=== PATIENT | female | born 1965 | race African-American/Black ===

== ENCOUNTER 2020-06-27 09:22 | Emergency (ER) | payer SELFPAY ==
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
[2020-06-27 10:16] VITALS: BP 146/101; TEMP 98.8; O2SAT 100
== END 2020-06-27 10:12 | disposition home or self-care (01) ==
LOC: ER 09:22
DX: M54.17 Radiculopathy, lumbosacral region (principal); V89.2XXA Person injured in unspecified motor-vehicle accident, traffic, initial encounter; I10 Essential (primary) hypertension
CPT/HCPCS: 99282

== ENCOUNTER 2023-10-23 07:43 | Emergency (ER) | payer OTHER ==
--- OUTSIDE RECORDS SUMMARY | 2023-10-23 07:47 | XMS REPORT | Continuity of Care Document ---
:1965 Author Organization Formerly [facility] t Address [address] [facility] [address] [place] [address] Care Team Providers Name Role Phone Valeria Stone Primary Care Physician [phone] LAURA SOLANO Attending Clinician Unavailable Problems This patient has no known problems. Allergies, Adverse Reactions, Alerts Allergy Allergy Status Severity Reaction(s) Onset Inactive Treating Comm ents Source Name Type Date Date Clinician Adele - Jasen Active 2021- Intraven ty to 7-13 ous adverse 00:00: reaction 00 to drug Medications Ordered Filled Start Stop Current Ordering Indication Dosage Frequency Signature Comments Components Source Medication Medication Date Date Medication? Clinician (SIG) Name Name TAKE ONE 2021-0 No (1) 9-16 TABLET(S) 00:00: BY MOUTH 00 ONCE A DAY. TAKE ONE 2021-0 No 40 (1) 8-17 TABLET(S) 00:00: BY MOUTH 00 ONCE A DAY. TAKE ONE 2021-0 No 40 (1) 8-17 TABLET(S) 00:00: BY MOUTH 00 ONCE A DAY. Dose 2021-0 No Unknown 8-08 00:00: 00 Dose 2021-0 No Unknown 8-08 00:00: 00 TAKE 1 2021-0 No 500 TABLET 8-03 TWICE 00:00: DAILY. 00 TAKE 1 2021-0 No 500 TABLET 8-03 TWICE 00:00: DAILY. 00 TAKE 1 2021-0 No 500 TABLET 7-16 TWICE 00:00: DAILY. 00 TAKE 1 2022-0 No 500 TABLET 7-16 TWICE 00:00: DAILY. 00 losartan 2022-0 No 1mg 100 7-15 mg-hydrochl 00:00: orothiazide 00 12.5 mg tablet amlodipine 2022-0 No 1mg 10 mg 7-15 tablet 00:00: 00 losartan 2022-0 No 1mg 100 7-15 mg-hydrochl 00:00: orothiazide 00 12.5 mg tablet amlodipine 2022-0 No 1mg 10 mg 7-15 tablet 00:00: 00 Abilify 5 2022-0 No 15mg mg tablet 05-16 00:00: 00 Cymbalta 30 2022-0 No 1mg mg 6-28 capsule,del 00:00: ayed 00 release Dose 2022-0 No Unknown 05-16 00:00: 00 Abilify 5 2022-0 No 15mg mg tablet 05-16 00:00: 00 Cymbalta 30 2022-0 No 1mg mg 6-28 capsule,del 00:00: ayed 00 release Dose 2022-0 No Unknown 05-16 00:00: 00 Abilify 5 2022-0 No 1mg mg tablet 04-26 00:00: 00 trazodone 2022-0 No 1mg 50 mg 6-08 tablet 00:00: 00 Dose 2022-0 No Unknown 6-08 00:00: 00 Abilify 5 2022-0 No 1mg mg tablet 04-26 00:00: 00 trazodone 2022-0 No 1mg 50 mg 6-08 tablet 00:00: 00 Dose 2022-0 No Unknown 6-08 00:00: 00 famotidine 2022-0 No 1mg 40 mg 6-06 tablet 00:00: 00 naproxen 2022-0 No 1mg 500 mg 6-06 tablet 00:00: 00 Dose 2022-0 No Unknown 6-06 00:00: 00 famotidine 2022-0 No 1mg 40 mg 6-06 tablet 00:00: 00 naproxen 2022-0 No 1mg 500 mg 6-06 tablet 00:00: 00 Dose 2022-0 No Unknown 6-06 00:00: 00 metformin 2022-0 No 1mg ER 500 mg 6-05 tablet,exte 00:00: nded 00 release 24 hr Vitamin D2 2022-0 No 1(50,00 1,250 mcg 6-05 0 unit) (50,000 00:00: unit) 00 capsule metformin 2022-0 No 1mg ER 500 mg 6-05 tablet,exte 00:00: nded 00 release 24 hr Vitamin D2 2022-0 No 1(50,00 1,250 mcg 6-05 0 unit) (50,000 00:00: unit) 00 capsule montelukast 2022-0 No 1mg 10 mg 6-01 tablet 00:00: 00 amlodipine 2022-0 No 1mg 10 mg 6-01 tablet 00:00: 00 Dose 2022-0 No Unknown 6-01 00:00: 00 ipratropium 2022-0 No 1mg 0.5 6-01 base)/3 mg-albutero 00:00: mL l 3 mg (2.5 00 mg base)/3 mL nebulizatio n soln famotidine 2022-0 No 1mg 40 mg 6-01 tablet 00:00: 00 loratadine 2022-0 No 1mg 10 mg 6-01 tablet 00:00: 00 losartan 2022-0 No 1mg 100 mg 6-01 tablet 00:00: 00 amlodipine 2022-0 No 1mg 10 mg 6-01 tablet 00:00: 00 montelukast 2022-0 No 1mg 10 mg 6-01 tablet 00:00: 00 losartan 2022-0 No 1mg 100 mg 6-01 tablet 00:00: 00 amlodipine 2022-0 No 1mg 10 mg 6-01 tablet 00:00: 00 losartan 2022-0 No 1mg 100 mg 6-01 tablet 00:00: 00 naproxen 2022-0 No 1mg 500 mg 6-01 tablet 00:00: 00 ondansetron 2022-0 No 1mg HCl 8 mg 6-01 tablet 00:00: 00 alendronate 2022-0 No 1mg 70 mg 6-01 tablet 00:00: 00 omeprazole 2022-0 No 1mg 40 mg 6-01 capsule,del 00:00: ayed 00 release hydrochloro 2022-0 No 1mg thiazide 6-01 12.5 mg 00:00: capsule 00 omeprazole 2022-0 No 1mg 40 mg 6-01 capsule,del 00:00: ayed 00 release hydrochloro 2022-0 No 1mg thiazide 6-01 12.5 mg 00:00: capsule 00 Linzess 145 2-0 No 1mcg mcg capsule 04-19 00:00: 00 naproxen 2022-0 No 1mg 500 mg 6- tablet 00:00: 00 Dose 2022-0 No Unknown 6- 00:00: 00 Dose 2022-0 No Unknown 6- 00:00: 00 Dose 2022-0 No Unknown 6- 00:00: 00 Dose 2022-0 No Unknown 6- 00:00: 00 Dose 2022-0 No Unknown 6- 00:00: 00 Dose 2022-0 No Unknown 04-19 00:00: 00 Dose 2022-0 No Unknown 04-19 00:00: 00 ondansetron 2-0 No 1mg HCl 8 mg - tablet 00:00: 00 alendronate 2022-0 No 1mg 70 mg 6- tablet 00:00: 00 omeprazole 2-0 No 1mg 40 mg 6- capsule,del 00:00: ayed 00 release hydrochloro 2022-0 No 1mg thiazide 6- 12.5 mg 00:00: capsule 00 omeprazole 2-0 No 1mg 40 mg 6- capsule,del 00:00: ayed 00 release hydrochloro 2022-0 No 1mg thiazide 6-01 12.5 mg 00:00: capsule 00 Linzess 145 2-0 No 1mcg mcg capsule 04-19 00:00: 00 Dose 2022-0 No Unknown 04-19 00:00: 00 Dose 2022-0 No Unknown 04-19 00:00: 00 Dose 2022-0 No Unknown 04-19 00:00: 00 Dose 2022-0 No Unknown 04-19 00:00: 00 Dose 2022-0 No Unknown 04-19 00:00: 00 Dose 2022-0 No Unknown 04-19 00:00: 00 Dose 2022-0 No Unknown 04-19 00:00: 00 albuterol 2-0 No 1mcg/ac sulfate HFA 04-19 tuation 90 00:00: mcg/actuati 00 on aerosol inhaler ipratropium 2-0 No 1mg 0.5 6-01 base)/3 mg-albutero 00:00: mL l 3 mg (2.5 00 mg base)/3 mL nebulizatio n soln famotidine 2021-0 No 1mg 40 mg 6-01 tablet 00:00: 00 loratadine 2021-0 No 1mg 10 mg 6-01 tablet 00:00: 00 losartan 2021-0 No 1mg 100 mg 6-01 tablet 00:00: 00 amlodipine 2021-0 No 1mg 10 mg 6-01 tablet 00:00: 00 Vital Signs Vital Name Observation Time Observation Value Comments Source BP Systolic 2022-07-14 15:21:00 116 mm[Hg] BP Diastolic 2022-07-14 15:21:00 76 mm[Hg] Weight Measured 2022-07-14 15:21:00 269.00 pounds Height Measured 2022-07-14 15:21:00 66.00 inches Body Temperature 2022-07-14 15:21:00 98.50 degrees Heart Rate 2022-07-14 15:21:00 96.00 /min Respiratory Rate 2022-07-14 15:21:00 18.00 /min BP Systolic 2022-06-21 10:55:00 142 mm[Hg] BP Diastolic 2022-06-21 10:55:00 92 mm[Hg] Weight Measured 2022-06-21 10:55:00 266.20 pounds Height Measured 2022-06-21 10:55:00 66.00 inches Body Temperature 2022-06-21 10:55:00 98.30 degrees Heart Rate 2022-06-21 10:55:00 84.00 /min Respiratory Rate 2022-06-21 10:55:00 18.00 /min BP Systolic 2022-06-02 15:11:00 BP Diastolic 2022-06-02 15:11:00 Weight Measured 2022-06-02 15:11:00 Height Measured 2022-06-02 15:11:00 Body Temperature 2022-06-02 15:11:00 Heart Rate 2022-06-02 15:11:00 Respiratory Rate 2022-06-02 15:11:00 BP Systolic 2022-06-02 14:12:00 149 mm[Hg] BP Diastolic 2022-06-02 14:12:00 85 mm[Hg] Weight Measured 2022-06-02 14:12:00 271.60 pounds Height Measured 2022-06-02 14:12:00 66.00 inches Body Temperature 2022-06-02 14:12:00 98.10 degrees Heart Rate 2022-06-02 14:12:00 84.00 /min Respiratory Rate 2022-06-02 14:12:00 18.00 /min BP Systolic 2022-04-19 10:57:00 167 mm[Hg] BP Diastolic 2022-04-19 10:57:00 108 mm[Hg] Weight Measured 2022-04-19 10:57:00 271.40 pounds Height Measured 2022-04-19 10:57:00 66.00 inches Body Temperature 2022-04-19 10:57:00 98.30 degrees Heart Rate 2022-04-19 10:57:00 87.00 /min Respiratory Rate 2022-04-19 10:57:00 17.00 /min Procedures This patient has no known procedures. Plan of Care Planned Activity Planned Date Details Comments Source Goal Plan of Care Note [code = 65941-8] Goal Plan of Care Note [code = 90955-1] Goal Plan of Care Note [code = 21615-0] Goal Plan of Care Note [code = 70899-5] Goal Plan of Care Note [code = 20666-4] Goal Plan of Care Note [code = 32628-1] Goal Plan of Care Note [code = 65912-7] Goal Plan of Care Note [code = 17031-7] Goal Plan of Care Note [code = 66281-5] Goal Plan of Care Note [code = 13663-8] Goal Plan of Care Note [code = 16503-7] Goal Plan of Care Note [code = 64316-7] Goal Plan of Care Note [code = 57042-3] Goal Plan of Care Note [code = 79844-6] Goal Plan of Care Note [code = 19068-0] Goal Plan of Care Note [code = 08116-1] Goal Plan of Care Note [code = 08404-5] Goal Plan of Care Note [code = 34066-7] Goal Plan of Care Note [code = 16211-5] Goal Plan of Care Note [code = 63338-3] Goal Plan of Care Note [code = 85337-9] Goal Plan of Care Note [code = 19483-2] Goal Plan of Care Note [code = 55620-3] Goal Plan of Care Note [code = 52701-8] Encounters Start End Encounter Admission Attending Care Care Encounter Source Date/Time Date/Time Type Type Clinicians Facility Department ID 2023-05-28 2023-05-28 Outpatient [facility] [id number] [place] 08:16:05 08:16:05 [id number] F Curry 2023-05-15 2023-05-15 Outpatient [facility] [id number] [place] 08:20:47 08:20:47 [id number] F Curry 2022-07-21 2022-07-21 Outpatient [id number] 00:00:00 00:00:00 Visit [id number] [id number] 2022-07-14 2022-07-14 Outpatient [id number] 00:00:00 00:00:00 Visit [id number] 2020-08-03 2020-08-03 Outpatient [facility]AYMUNDO SOLANO FRANK [id number] 06:00:00 [facility]00[facility] [facility] 2020-07-20 2020-07-20 Outpatient RAYMUNDO SOLANO FRANK [id number] 08:57:00 23:59:00 [facility] Results Test Description Test Time Test Comments Results Result Comments Source VITAMIN D, 25 OH 2022-07-18 03:10:02 Test Item Value Reference Range Interpretation Comme nts VITAMIN D, 25 OH (test code 23 NG/ML SEE BELOW L NOTE: 25-HYDROXYVITAMIN D ASSAY = 4958) INCLUDES 25-HYD ROXYVITAMIN D2 AND D3. METHODOLOGY IS CHEMILUMINESCENT IMMUNOASSAY. INTERPRETIVE RANGES PED IATRIC (<17 YEARS) . . . . . . . . . . . NG/ML 20-100ADULT: INSUFFICIENT . . . . . . . . . . . . . . NG/ML <20 S UBOPTIMAL . . . . . . . . . . . . . . . NG/ML 20-29 OPTIMAL . . . . . . . . . . . . . . . . . NG/ML 30-100 VITAMIN D, 25 [id number] 00:00:00 Test Item Value Reference Range Interpretation Comments VITAMIN D, 25 OH (test code = 4958) 23 NG/ML VITAMIN D, 25 [id number] 00:00:00 Test Item Value Reference Range Interpretation Comments VITAMIN D, 25 OH (test code = 4958) 23 NG/ML LIPID [id number] 03:15:18 Test Item Value Reference Range Interpretation Comments CHOLESTEROL (test 237 MG/DL <200 H code = 2210) TRIGLYCERIDES (test 178 MG/DL <150 H code = 2232) HDL CHOLESTEROL (test 52 MG/DL >39 code = 2220) CALC LDL CHOL (test 154 MG/DL <100 H NOTE: C ALCULATED LDL code = 2237) IS BASED ON MING-ARMSTRONG METHOD WHICHINCLUDES ADJUSTABLE TRIGLYCERIDE:VL DL CHOLESTEROL RAT IO.THIS FACTOR VARIES B Y MEASURED TRIGLY CERIDE AND NON-HDLCHOL ESTEROL CONCENTRATIONS WITH INCREASED CALCU LATED LDL SEENIN HIGH ER TRIGLYCERIDE OR LOWER NON-HDL SPECIME NS. FOR MOREINFORMATION , SEE CLIENT ANNOUNCE MENT AT [email or web address] RISK RATIO LDL/HDL 2.96 RATIO <3.22 (test code = 2238) COMPREHENSIVE METABOLIC [id number] 03:15:18 Test Item Value Reference Range Interpretation Comments GLUCOSE (test code = 87 MG/DL 70-99 2216) BUN (test code = 20 MG/DL 6-2207) CREATININE (test 1.31 MG/DL 0.60-1.30 H code = 2214) eGFR (2020 CKD-EPI) 48 ML/MIN/1.73 >60 L (test code = 66138) CALC BUN/CREAT (test 15 RATIO - code = 2235) SODIUM (test code = 141 MEQ/L 020-365 3163) POTASSIUM (test code 4.4 MEQ/L 3.5-5.4 = 2227) CHLORIDE (test code 103 MEQ/L 95-107 = 2215) CARBON DIOXIDE (test 22 MEQ/L -31 code = 2206) CALCIUM (test code = 9.6 MG/DL 8.5-10.5 220) PROTEIN, TOTAL (test 8.0 G/DL 6.1-8.3 code = 2229) ALBUMIN (test code = 4.4 G/DL 3.5-5.2 220) CALC GLOBULIN (test 3.6 G/DL 1.9-3.7 code = 2240) CALC A/G RATIO (test 1.2 RATIO 1.0-2.6 code = 2234) BILIRUBIN, TOTAL 0.2 MG/DL See_Comment [Automated message] (test code = 2207) The syste m which generated this result transmit chelsea reference range : <=1.2. The refe rence range was not u sed to interpret th is result as normal/abnormal . ALKALINE PHOSPHATASE 108 U/L 40-133 (test code = 2204) AST (test code = 21 U/L 9-40 2217) ALT (test code = 29 U/L 5-40 2218) TSH, THIRD [id number] 01:13:31 Test Item Value Reference Range Interpretation Comments TSH, THIRD 0.491 UIU/ML 0.400-4.100 UNLESS OTHERWI SE GENERATION (test INDICATED, ALL TESTING code = 9661) PERFORMED [facility], [id number] [place] [address] DHRUV DIRECTOR: MANISH ZUNIGA M.D. CLIA NUMBER [id number] CAP ACCREDITATION N O. [id number] LIPID [id number] 00:00:00 Test Item Value Reference Range Interpretation Comments CHOLESTEROL (test code = 2210) 237 MG/DL TRIGLYCERIDES (test code = 2232) 178 MG/DL HDL CHOLESTEROL (test code = 2220) 52 MG/DL CALC LDL CHOL (test code = 2237) 154 MG/DL RISK RATIO LDL/HDL (test code = 2.96 RATIO 2238) LIPID [id number] 00:00:00 Test Item Value Reference Range Interpretation Comments CHOLESTEROL (test code = 2210) 237 MG/DL TRIGLYCERIDES (test code = 2232) 178 MG/DL HDL CHOLESTEROL (test code = 2220) 52 MG/DL CALC LDL CHOL (test code = 2237) 154 MG/DL RISK RATIO LDL/HDL (test code = 2.96 RATIO 2238) COMPREHENSIVE METABOLIC [id number] 00:00:00 Test Item Value Reference Range Interpretation Comments GLUCOSE (test code = 2217) 87 MG/DL BUN (test code = 2208) 20 MG/DL CREATININE (test code = 2214) 1.31 MG/DL eGFR (2020 CKD-EPI) (test code 48 ML/MIN/1.73 = 34606) CALC BUN/CREAT (test code = 15 RATIO 2235) SODIUM (test code = 2231) 141 MEQ/L POTASSIUM (test code = 2228) 4.4 MEQ/L CHLORIDE (test code = 2215) 103 MEQ/L CARBON DIOXIDE (test code = 22 MEQ/L 2205) CALCIUM (test code = 2209) 9.6 MG/DL PROTEIN, TOTAL (test code = 8.0 G/DL 2228) ALBUMIN (test code = 2201) 4.4 G/DL CALC GLOBULIN (test code = 3.6 G/DL 224) CALC A/G RATIO (test code = 1.2 RATIO 2233) BILIRUBIN, TOTAL (test code = 0.2 MG/DL 2206) ALKALINE PHOSPHATASE (test 108 U/L code = 2204) AST (test code = 2218) 21 U/L ALT (test code = 2219) 29 U/L COMPREHENSIVE METABOLIC [id number] 00:00:00 Test Item Value Reference Range Interpretation Comments GLUCOSE (test code = 2217) 87 MG/DL BUN (test code = 2208) 20 MG/DL CREATININE (test code = 2214) 1.31 MG/DL eGFR (2020 CKD-EPI) (test code 48 ML/MIN/1.73 = 44052) CALC BUN/CREAT (test code = 15 RATIO 2235) SODIUM (test code = 2231) 141 MEQ/L POTASSIUM (test code = 2228) 4.4 MEQ/L CHLORIDE (test code = 2215) 103 MEQ/L CARBON DIOXIDE (test code = 22 MEQ/L 220) CALCIUM (test code = 2209) 9.6 MG/DL PROTEIN, TOTAL (test code = 8.0 G/DL 2228) ALBUMIN (test code = 2201) 4.4 G/DL CALC GLOBULIN (test code = 3.6 G/DL 2240) CALC A/G RATIO (test code = 1.2 RATIO 4) BILIRUBIN, TOTAL (test code = 0.2 MG/DL 2207) ALKALINE PHOSPHATASE (test 108 U/L code = 2204) AST (test code = 2218) 21 U/L ALT (test code = 2219) 29 U/L TSH, THIRD [id number] 00:00:00 Test Item Value Reference Range Interpretation Comments TSH, THIRD GENERATION (test code 0.491 UIU/ML = 2821) TSH, THIRD [id number] 00:00:00 Test Item Value Reference Range Interpretation Comments TSH, THIRD GENERATION (test code 0.491 UIU/ML = 2821) TSH, THIRD [id number] 00:00:00 Test Item Value Reference Range Interpretation Comments TSH, THIRD GENERATION (test code 0.491 UIU/ML = 2821) HEMOGLOBIN [id number] 04:27:25 Test Item Value Reference Range Interpretation Comments HEMOGLOBIN A1c (test 6.5 % 4.2-5.6 H AMERI CAN DIABETES code = 79284) ASSOCIATION IDELINES FOR HGB A1C: PREDIABETES/INC REASED RISK . . . . . . . 5.7 -6.4% DIAGNOSIS OF DI ABETES . . . . . . . . . >=6 .5% WITH CONFIRMATION OR APPROPRIATE SYMPTOMS NOTE: ASSAY MAY BE AFFECTED BY HEMOGLOBINOPATH IES (SICKLE CELL ANEMIA, S- C DISEASE, OTHERS) OR EDY FICIALLY LOWERED BY DECR EASED RED CELL SURVIVAL ( HEMOLYTIC ANEMIAS, BLOOD LOSS, ETC.). CONSIDER ALTERN ATE TESTING OR LABORATORY C ONSULTATION. CBC W/AUTO DIFF WITH [id number] 03:58:08 Test Item Value Reference Range Interpretation Comments WBC (test code = 6.5 K/UL 3.5-11.0 1001) RBC (test code = 4.83 M/UL 3.80-5.40 1002) HEMOGLOBIN (test code 13.1 G/DL 11.5-15.5 = 1003) HEMATOCRIT (test code 39.2 % 34.0-45.0 = 1004) MCV (test code = 81.2 fL 80.0-99.0 1005) MCH (test code = 27.1 PG 25.0-33.0 1006) MCHC (test code = 33.4 G/DL 31.0-36.0 1007) RDW (test code = 14.9 % 11.5-15.0 1038) NEUTROPHILS (test 49.7 % code = 1008) LYMPHOCYTES (test 40.4 % code = 1010) MONOCYTES (test code 7.4 % = 1011) EOSINOPHILS (test 1.9 % code = 1012) BASOPHILS (test code 0.3 % = 1013) IMMATURE GRANULOCYTES 0.3 % (test code = 1036) NUCLEATED RBCS (test 0.0 /100 WBC'S See_Comment [Aut omated code = 1065) message] The sy stem which generated this result transmitted reference range : 0.0. The refere nce range was not u sed to interpret th is result as normal/abnormal . PLATELET COUNT (test 258 K/UL 130-400 code = 1015) ABSOLUTE NEUTROPHILS 3.22 K/UL 1.50-7.50 (test code = 1066) ABSOLUTE LYMPHOCYTES 2.62 K/UL 1.00-4.00 (test code = 1067) ABSOLUTE MONOCYTES 0.48 K/UL 0.20-1.00 (test code = 1068) ABSOLUTE EOSINOPHILS 0.12 K/UL 0.00-0.50 (test code = 1040) ABSOLUTE BASOPHILS 0.02 K/UL 0.00-0.20 (test code = 1069) ABS IMMATURE 0.02 K/UL 0.00-0.10 GRANULOCYTES (test code = 1020) ABS NUCLEATED RBCS 0.02 K/UL 0.00-0.11 (test code = 98822) HEMOGLOBIN [id number] 00:00:00 Test Item Value Reference Range Interpretation Comments HEMOGLOBIN A1c (test code = 99615) 6.5 % HEMOGLOBIN [id number] 00:00:00 Test Item Value Reference Range Interpretation Comments HEMOGLOBIN A1c (test code = 56995) 6.5 % HEMOGLOBIN [id number] 00:00:00 Test Item Value Reference Range Interpretation Comments HEMOGLOBIN A1c (test code = 70808) 6.5 % CBC W/AUTO [id number] 00:00:00 Test Item Value Reference Range Interpretation Comments WBC (test code = 1001) 6.5 K/UL RBC (test code = 1002) 4.83 M/UL HEMOGLOBIN (test code = 1003) 13.1 G/DL HEMATOCRIT (test code = 1004) 39.2 % MCV (test code = 1005) 81.2 fL MCH (test code = 1006) 27.1 PG MCHC (test code = 1007) 33.4 G/DL RDW (test code = 1038) 14.9 % NEUTROPHILS (test code = 1008) 49.7 % LYMPHOCYTES (test code = 1010) 40.4 % MONOCYTES (test code = 1011) 7.4 % EOSINOPHILS (test code = 1012) 1.9 % BASOPHILS (test code = 1013) 0.3 % IMMATURE GRANULOCYTES (test 0.3 % code = 1036) NUCLEATED RBCS (test code = 0.0 /100WBC'S 1065) PLATELET COUNT (test code = 258 K/UL 1015) ABSOLUTE NEUTROPHILS (test code 3.22 K/UL = 1066) ABSOLUTE LYMPHOCYTES (test code 2.62 K/UL = 1067) ABSOLUTE MONOCYTES (test code = 0.48 K/UL 1068) ABSOLUTE EOSINOPHILS (test code 0.12 K/UL = 1040) ABSOLUTE BASOPHILS (test code = 0.02 K/UL 1069) ABS IMMATURE GRANULOCYTES (test 0.02 K/UL code = 1020) ABS NUCLEATED RBCS (test code = 0.02 K/UL 46024) CBC W/AUTO [id number] 00:00:00 Test Item Value Reference Range Interpretation Comments WBC (test code = 1001) 6.5 K/UL RBC (test code = 1002) 4.83 M/UL HEMOGLOBIN (test code = 1003) 13.1 G/DL HEMATOCRIT (test code = 1004) 39.2 % MCV (test code = 1005) 81.2 fL MCH (test code = 1006) 27.1 PG MCHC (test code = 1007) 33.4 G/DL RDW (test code = 1038) 14.9 % NEUTROPHILS (test code = 1008) 49.7 % LYMPHOCYTES (test code = 1010) 40.4 % MONOCYTES (test code = 1011) 7.4 % EOSINOPHILS (test code = 1012) 1.9 % BASOPHILS (test code = 1013) 0.3 % IMMATURE GRANULOCYTES (test 0.3 % code = 1036) NUCLEATED RBCS (test code = 0.0 /100WBC'S 1065) PLATELET COUNT (test code = 258 K/UL 1015) ABSOLUTE NEUTROPHILS (test code 3.22 K/UL = 1066) ABSOLUTE LYMPHOCYTES (test code 2.62 K/UL = 1067) ABSOLUTE MONOCYTES (test code = 0.48 K/UL 1068) ABSOLUTE EOSINOPHILS (test code 0.12 K/UL = 1040) ABSOLUTE BASOPHILS (test code = 0.02 K/UL 1069) ABS IMMATURE GRANULOCYTES (test 0.02 K/UL code = 1020) ABS NUCLEATED RBCS (test code = 0.02 K/UL 97224) CBC W/AUTO [id number] 00:00:00 Test Item Value Reference Range Interpretation Comments WBC (test code = 1001) 6.5 K/UL RBC (test code = 1002) 4.83 M/UL HEMOGLOBIN (test code = 1003) 13.1 G/DL HEMATOCRIT (test code = 1004) 39.2 % MCV (test code = 1005) 81.2 fL MCH (test code = 1006) 27.1 PG MCHC (test code = 1007) 33.4 G/DL RDW (test code = 1038) 14.9 % NEUTROPHILS (test code = 1008) 49.7 % LYMPHOCYTES (test code = 1010) 40.4 % MONOCYTES (test code = 1011) 7.4 % EOSINOPHILS (test code = 1012) 1.9 % BASOPHILS (test code = 1013) 0.3 % IMMATURE GRANULOCYTES (test 0.3 % code = 1036) NUCLEATED RBCS (test code = 0.0 /100WBC'S 1065) PLATELET COUNT (test code = 258 K/UL 1015) ABSOLUTE NEUTROPHILS (test code 3.22 K/UL = 1066) ABSOLUTE LYMPHOCYTES (test code 2.62 K/UL = 1067) ABSOLUTE MONOCYTES (test code = 0.48 K/UL 1068) ABSOLUTE EOSINOPHILS (test code 0.12 K/UL = 1040) ABSOLUTE BASOPHILS (test code = 0.02 K/UL 1069) ABS IMMATURE GRANULOCYTES (test 0.02 K/UL code = 1020) ABS NUCLEATED RBCS (test code = 0.02 K/UL 79277) H. PYLORI (BREATH)2022-06-22 13:31:28 Test Item Value Reference Range Interpretation Comments H. PYLORI (BREATH) NEGATIVE NEGATIVE UNLESS O THERWISE (test code = 44299) INDICATE D, ALL TESTING PERFORMED [facility] [address] [place] [address] ROWAN AMAYA DIRECTOR: Maria Teresa MORALESIA NUMBER [id number] CAP ACCREDITATION N O. [id number] H. PYLORI (BREATH) [ADDED]2022-06-22 00:00:00 Test Item Value Reference Range Interpretation Comments H. PYLORI (BREATH) (test code = NEGATIVE 48918) H. PYLORI (BREATH) [ADDED]2022-06-22 00:00:00 Test Item Value Reference Range Interpretation Comments H. PYLORI (BREATH) (test code = NEGATIVE 81211) H. PYLORI (BREATH) [ADDED]2022-06-22 00:00:00 Test Item Value Reference Range Interpretation Comments H. PYLORI (BREATH) (test code = NEGATIVE 88496) H. PYLORI (BREATH) [ADDED]2022-06-22 00:00:00 Test Item Value Reference Range Interpretation Comments H. PYLORI (BREATH) (test code = NEGATIVE 51139) COMPREHENSIVE METABOLIC [id number] 05:16:24 Test Item Value Reference Range Interpretation Comments GLUCOSE (test code = 90 MG/DL 70-99 2216) BUN (test code = 15 MG/DL 6-20 2207) CREATININE (test 1.13 MG/DL 0.60-1.30 code = 2214) eGFR (2020 CKD-EPI) 57 >60 L (test code = 36227) ML/MIN/1.73 CALC BUN/CREAT (test 13 RATIO 6-28 code = 2235) SODIUM (test code = 143 MEQ/L 464-247 8174) POTASSIUM (test code 4.4 MEQ/L 3.5-5.4 = 2227) CHLORIDE (test code 106 MEQ/L 95-107 = 2215) CARBON DIOXIDE (test 26 MEQ/L 19-31 code = 2206) CALCIUM (test code = 10.3 MG/DL 8.5-10.5 2208) PROTEIN, TOTAL (test 7.8 G/DL 6.1-8.3 code = 2229) ALBUMIN (test code = 4.6 G/DL 3.5-5.2 2200) CALC GLOBULIN (test 3.2 G/DL 1.9-3.7 code = 2240) CALC A/G RATIO (test 1.4 RATIO 1.0-2.6 code = 2234) BILIRUBIN, TOTAL <0.2 MG/DL See_Comment [Automated message] (test code = 220) The syste m which generated this result transmitted ref erence range: <=1.2. T he reference range was not used to int erpret this result as normal/abnormal . ALKALINE PHOSPHATASE 105 U/L 40-133 (test code = 2204) AST (test code = 21 U/L 9-40 2217) ALT (test code = 31 U/L 5-40 UNLESS OTH ERWISE 221) INDICATED, ALL TESTING PERFORM [facility], [facility]. [address] [place], [place] [id number] [place] [address] DIRECTOR: MANISH ZUNIGA M.D. CLIA NUMBER [id number] CAP ACCREDITATION N O. [id number] COMPREHENSIVE METABOLIC [id number] 00:00:00 Test Item Value Reference Range Interpretation Comments GLUCOSE (test code = 7) 90 MG/DL BUN (test code = 2208) 15 MG/DL CREATININE (test code = 2214) 1.13 MG/DL eGFR (2020 CKD-EPI) (test code 57 ML/MIN/1.73 = 83448) CALC BUN/CREAT (test code = 13 RATIO 5) SODIUM (test code = 2231) 143 MEQ/L POTASSIUM (test code = 2228) 4.4 MEQ/L CHLORIDE (test code = 2215) 106 MEQ/L CARBON DIOXIDE (test code = 26 MEQ/L 2205) CALCIUM (test code = 2209) 10.3 MG/DL PROTEIN, TOTAL (test code = 7.8 G/DL 2228) ALBUMIN (test code = 2201) 4.6 G/DL CALC GLOBULIN (test code = 3.2 G/DL 2239) CALC A/G RATIO (test code = 1.4 RATIO 223) BILIRUBIN, TOTAL (test code = <0.2 MG/DL 2206) ALKALINE PHOSPHATASE (test 105 U/L code = 2204) AST (test code = 2218) 21 U/L ALT (test code = 2219) 31 U/L COMPREHENSIVE METABOLIC [id number] 00:00:00 Test Item Value Reference Range Interpretation Comments GLUCOSE (test code = 2217) 90 MG/DL BUN (test code = 2208) 15 MG/DL CREATININE (test code = 2214) 1.13 MG/DL eGFR (2020 CKD-EPI) (test code 57 ML/MIN/1.73 = 18720) CALC BUN/CREAT (test code = 13 RATIO 2235) SODIUM (test code = 2231) 143 MEQ/L POTASSIUM (test code = 2228) 4.4 MEQ/L CHLORIDE (test code = 2215) 106 MEQ/L CARBON DIOXIDE (test code = 26 MEQ/L 2205) CALCIUM (test code = 2209) 10.3 MG/DL PROTEIN, TOTAL (test code = 7.8 G/DL 2228) ALBUMIN (test code = 220) 4.6 G/DL CALC GLOBULIN (test code = 3.2 G/DL 2240) CALC A/G RATIO (test code = 1.4 RATIO 2234) BILIRUBIN, TOTAL (test code = <0.2 MG/DL 2206) ALKALINE PHOSPHATASE (test 105 U/L code = 2204) AST (test code = 2218) 21 U/L ALT (test code = 2219) 31 U/L COMPREHENSIVE METABOLIC [id number] 00:00:00 Test Item Value Reference Range Interpretation Comments GLUCOSE (test code = 2217) 90 MG/DL BUN (test code = 2208) 15 MG/DL CREATININE (test code = 2214) 1.13 MG/DL eGFR (2020 CKD-EPI) (test code 57 ML/MIN/1.73 = 27129) CALC BUN/CREAT (test code = 13 RATIO 2235) SODIUM (test code = 2231) 143 MEQ/L POTASSIUM (test code = 2228) 4.4 MEQ/L CHLORIDE (test code = 2215) 106 MEQ/L CARBON DIOXIDE (test code = 26 MEQ/L 2205) CALCIUM (test code = 2209) 10.3 MG/DL PROTEIN, TOTAL (test code = 7.8 G/DL 2228) ALBUMIN (test code = 2201) 4.6 G/DL CALC GLOBULIN (test code = 3.2 G/DL 2240) CALC A/G RATIO (test code = 1.4 RATIO 2234) BILIRUBIN, TOTAL (test code = <0.2 MG/DL 2206) ALKALINE PHOSPHATASE (test 105 U/L code = 2204) AST (test code = 2218) 21 U/L ALT (test code = 2219) 31 U/L COMPREHENSIVE METABOLIC [id number] 00:00:00 Test Item Value Reference Range Interpretation Comments GLUCOSE (test code = 2217) 90 MG/DL BUN (test code = 2208) 15 MG/DL CREATININE (test code = 2214) 1.13 MG/DL eGFR (2020 CKD-EPI) (test code 57 ML/MIN/1.73 = 95174) CALC BUN/CREAT (test code = 13 RATIO 2235) SODIUM (test code = 2231) 143 MEQ/L POTASSIUM (test code = 2228) 4.4 MEQ/L CHLORIDE (test code = 2215) 106 MEQ/L CARBON DIOXIDE (test code = 26 MEQ/L 2205) CALCIUM (test code = 2209) 10.3 MG/DL PROTEIN, TOTAL (test code = 7.8 G/DL 2228) ALBUMIN (test code = 220) 4.6 G/DL CALC GLOBULIN (test code = 3.2 G/DL 2239) CALC A/G RATIO (test code = 1.4 RATIO 2233) BILIRUBIN, TOTAL (test code = <0.2 MG/DL 2206) ALKALINE PHOSPHATASE (test 105 U/L code = 2204) AST (test code = 2218) 21 U/L ALT (test code = 2219) 31 U/L TSH, THIRD [id number] 06:26:56 Test Item Value Reference Range Interpretation Comments TSH, THIRD 0.894 UIU/ML 0.400-4.100 UNLESS OTHERWI SE GENERATION (test INDICATED, ALL TESTING code = 2821) PERFORMED [facility], [facility]. [address] [place] [id number] [place] [address] DIRECTOR: MANISH ZUNIGA M.D. CLIA NUMBER [id number] CAP ACCREDITATION N O. [id number] VITAMIN D, 25 [id number] 05:55:42 Test Item Value Reference Range Interpretation Comments VITAMIN D, 25 OH 15 NG/ML SEE BELOW L NOTE: 25-H YDROXYVITAMIN D (test code = 4958) ASSAY INC LUDES 25-HYDROXYVITAM IN D2 AND D3. METHODOLOGY IS CHEMILUMINESCEN T IMMUNOASSAY. * INTERPRETIVE RA NGES PEDIATRIC (<17 YEARS) . . . . . . . . . . . NG/ML 20-100ADULT: IN SUFFICIENT . . . . . . . . . . . . . . NG/ML <20 SUBOP TIMAL . . . . . . . . . . . . . . . NG/ML 20-29 OPT IMAL . . . . . . . . . . . . . . . . . NG/ML 30-100 HEMOGLOBIN [id number] 04:11:26 Test Item Value Reference Range Interpretation Comments HEMOGLOBIN A1c (test 6.8 % 4.2-5.6 H AMERIC AN DIABETES code = 21455) ASSOCIATION IDELINES FOR HGB A1C: PREDIABETES/INC REASED RISK . . . . . . . 5.7 -6.4% DIAGNOSIS OF DI ABETES . . . . . . . . . >=6 .5% WITH CONFIRMATION OR APPROPRIATE SYMPTOMS NOTE: ASSAY MAY BE AFFECTED BY HEMOGLOBINOPATH IES (SICKLE CELL ANEMIA, S- C DISEASE, OTHERS) OR EDY FICIALLY LOWERED BY DECR EASED RED CELL SURVIVAL ( HEMOLYTIC ANEMIAS, BLOOD LOSS, ETC.). CONSIDER ALTERN ATE TESTING OR LABORATORY C ONSULTATION. COMPREHENSIVE METABOLIC [id number] 03:24:51 Test Item Value Reference Range Interpretation Comments GLUCOSE (test code = 110 MG/DL 70-99 H 2216) BUN (test code = 11 MG/DL 6-20 2207) CREATININE (test 1.01 MG/DL 0.60-1.30 code = 2214) eGFR (2020 CKD-EPI) 66 ML/MIN/1.73 >60 (test code = 50805) CALC BUN/CREAT (test 11 RATIO 6-28 code = 2235) SODIUM (test code = 144 MEQ/L 666-307 2703) POTASSIUM (test code 4.2 MEQ/L 3.5-5.4 = 2227) CHLORIDE (test code 108 MEQ/L 95-107 H = 2214) CARBON DIOXIDE (test 24 MEQ/L 19-31 code = 2206) CALCIUM (test code = 9.6 MG/DL 8.5-10.5 2208) PROTEIN, TOTAL (test 7.6 G/DL 6.1-8.3 code = 2229) ALBUMIN (test code = 4.3 G/DL 3.5-5.2 2200) CALC GLOBULIN (test 3.3 G/DL 1.9-3.7 code = 2240) CALC A/G RATIO (test 1.3 RATIO 1.0-2.6 code = 2234) BILIRUBIN, TOTAL 0.3 MG/DL See_Comment [Automated message] (test code = 2207) The syste m which generated this result transmit [place] reference range : <=1.2. The refe rence range was not u sed to interpret th is result as normal/abnormal . ALKALINE PHOSPHATASE 100 U/L 40-133 (test code = 2204) AST (test code = 17 U/L 9-40 2217) ALT (test code = 22 U/L 5-40 2218) LIPID [id number] 03:24:51 Test Item Value Reference Range Interpretation Comments CHOLESTEROL (test 197 MG/DL <200 code = 2210) TRIGLYCERIDES (test 128 MG/DL <150 code = 2232) HDL CHOLESTEROL (test 43 MG/DL >39 code = 2220) CALC LDL CHOL (test 130 MG/DL <100 H NOTE: C ALCULATED LDL code = 2237) IS BASED ON MING-ARMSTRONG METHOD WHICHINCLUDES ADJUSTABLE TRIGLYCERIDE:VL DL CHOLESTEROL RAT IO.THIS FACTOR VARIES B Y MEASURED TRIGLY CERIDE AND NON-HDLCHOL ESTEROL CONCENTRATIONS WITH INCREASED CALCU LATED LDL SEENIN HIGH ER TRIGLYCERIDE OR LOWER NON-HDL SPECIME NS. FOR MOREINFORMATION , SEE CLIENT ANNOUNCE MENT AT [email or web address] RISK RATIO LDL/HDL 3.02 RATIO <3.22 (test code = 2238) CBC W/AUTO DIFF WITH [id number] 02:34:04 Test Item Value Reference Range Interpretation Comments WBC (test code = 5.2 K/UL 3.5-11.0 1001) RBC (test code = 4.38 M/UL 3.80-5.40 1002) HEMOGLOBIN (test code 12.2 G/DL 11.5-15.5 = 1003) HEMATOCRIT (test code 35.8 % 34.0-45.0 = 1004) MCV (test code = 81.7 fL 80.0-99.0 1005) MCH (test code = 27.9 PG 25.0-33.0 1006) MCHC (test code = 34.1 G/DL 31.0-36.0 1007) RDW (test code = 14.1 % 11.5-15.0 1038) NEUTROPHILS (test 46.9 % code = 1008) LYMPHOCYTES (test 41.5 % code = 1010) MONOCYTES (test code 8.3 % = 1011) EOSINOPHILS (test 2.5 % code = 1012) BASOPHILS (test code 0.6 % = 1013) IMMATURE GRANULOCYTES 0.2 % (test code = 1036) NUCLEATED RBCS (test 0.0 /100 WBC'S See_Comment [Aut omated code = 1065) message] The sy stem which generated this result transmitted reference range : 0.0. The refere nce range was not u sed to interpret th is result as normal/abnormal . PLATELET COUNT (test 239 K/UL 130-400 code = 1015) ABSOLUTE NEUTROPHILS 2.45 K/UL 1.50-7.50 (test code = 1066) ABSOLUTE LYMPHOCYTES 2.16 K/UL 1.00-4.00 (test code = 1067) ABSOLUTE MONOCYTES 0.43 K/UL 0.20-1.00 (test code = 1068) ABSOLUTE EOSINOPHILS 0.13 K/UL 0.00-0.50 (test code = 1040) ABSOLUTE BASOPHILS 0.03 K/UL 0.00-0.20 (test code = 1069) ABS IMMATURE 0.01 K/UL 0.00-0.10 GRANULOCYTES (test code = 1020) ABS NUCLEATED RBCS 0.00 K/UL 0.00-0.11 (test code = 60274) CBC W/AUTO [id number] 00:00:00 Test Item Value Reference Range Interpretation Comments WBC (test code = 1001) 5.2 K/UL RBC (test code = 1002) 4.38 M/UL HEMOGLOBIN (test code = 1003) 12.2 G/DL HEMATOCRIT (test code = 1004) 35.8 % MCV (test code = 1005) 81.7 fL MCH (test code = 1006) 27.9 PG MCHC (test code = 1007) 34.1 G/DL RDW (test code = 1038) 14.1 % NEUTROPHILS (test code = 1008) 46.9 % LYMPHOCYTES (test code = 1010) 41.5 % MONOCYTES (test code = 1011) 8.3 % EOSINOPHILS (test code = 1012) 2.5 % BASOPHILS (test code = 1013) 0.6 % IMMATURE GRANULOCYTES (test 0.2 % code = 1036) NUCLEATED RBCS (test code = 0.0 /100WBC'S 1065) PLATELET COUNT (test code = 239 K/UL 1015) ABSOLUTE NEUTROPHILS (test code 2.45 K/UL = 1066) ABSOLUTE LYMPHOCYTES (test code 2.16 K/UL = 1067) ABSOLUTE MONOCYTES (test code = 0.43 K/UL 1068) ABSOLUTE EOSINOPHILS (test code 0.13 K/UL = 1040) ABSOLUTE BASOPHILS (test code = 0.03 K/UL 1069) ABS IMMATURE GRANULOCYTES (test 0.01 K/UL code = 1020) ABS NUCLEATED RBCS (test code = 0.00 K/UL 15486) CBC W/AUTO [id number] 00:00:00 Test Item Value Reference Range Interpretation Comments WBC (test code = 1001) 5.2 K/UL RBC (test code = 1002) 4.38 M/UL HEMOGLOBIN (test code = 1003) 12.2 G/DL HEMATOCRIT (test code = 1004) 35.8 % MCV (test code = 1005) 81.7 fL MCH (test code = 1006) 27.9 PG MCHC (test code = 1007) 34.1 G/DL RDW (test code = 1038) 14.1 % NEUTROPHILS (test code = 1008) 46.9 % LYMPHOCYTES (test code = 1010) 41.5 % MONOCYTES (test code = 1011) 8.3 % EOSINOPHILS (test code = 1012) 2.5 % BASOPHILS (test code = 1013) 0.6 % IMMATURE GRANULOCYTES (test 0.2 % code = 1036) NUCLEATED RBCS (test code = 0.0 /100WBC'S 1065) PLATELET COUNT (test code = 239 K/UL 1015) ABSOLUTE NEUTROPHILS (test code 2.45 K/UL = 1066) ABSOLUTE LYMPHOCYTES (test code 2.16 K/UL = 1067) ABSOLUTE MONOCYTES (test code = 0.43 K/UL 1068) ABSOLUTE EOSINOPHILS (test code 0.13 K/UL = 1040) ABSOLUTE BASOPHILS (test code = 0.03 K/UL 1069) ABS IMMATURE GRANULOCYTES (test 0.01 K/UL code = 1020) ABS NUCLEATED RBCS (test code = 0.00 K/UL 01789) CBC W/AUTO [id number] 00:00:00 Test Item Value Reference Range Interpretation Comments WBC (test code = 1001) 5.2 K/UL RBC (test code = 1002) 4.38 M/UL HEMOGLOBIN (test code = 1003) 12.2 G/DL HEMATOCRIT (test code = 1004) 35.8 % MCV (test code = 1005) 81.7 fL MCH (test code = 1006) 27.9 PG MCHC (test code = 1007) 34.1 G/DL RDW (test code = 1038) 14.1 % NEUTROPHILS (test code = 1008) 46.9 % LYMPHOCYTES (test code = 1010) 41.5 % MONOCYTES (test code = 1011) 8.3 % EOSINOPHILS (test code = 1012) 2.5 % BASOPHILS (test code = 1013) 0.6 % IMMATURE GRANULOCYTES (test 0.2 % code = 1036) NUCLEATED RBCS (test code = 0.0 /100WBC'S 1065) PLATELET COUNT (test code = 239 K/UL 1015) ABSOLUTE NEUTROPHILS (test code 2.45 K/UL = 1066) ABSOLUTE LYMPHOCYTES (test code 2.16 K/UL = 1067) ABSOLUTE MONOCYTES (test code = 0.43 K/UL 1068) ABSOLUTE EOSINOPHILS (test code 0.13 K/UL = 1040) ABSOLUTE BASOPHILS (test code = 0.03 K/UL 1069) ABS IMMATURE GRANULOCYTES (test 0.01 K/UL code = 1020) ABS NUCLEATED RBCS (test code = 0.00 K/UL 89797) LIPID [id number] 00:00:00 Test Item Value Reference Range Interpretation Comments CHOLESTEROL (test code = 2210) 197 MG/DL TRIGLYCERIDES (test code = 2232) 128 MG/DL HDL CHOLESTEROL (test code = 2220) 43 MG/DL CALC LDL CHOL (test code = 2237) 130 MG/DL RISK RATIO LDL/HDL (test code = 3.02 RATIO 2238) LIPID [id number] 00:00:00 Test Item Value Reference Range Interpretation Comments CHOLESTEROL (test code = 2210) 197 MG/DL TRIGLYCERIDES (test code = 2232) 128 MG/DL HDL CHOLESTEROL (test code = 2220) 43 MG/DL CALC LDL CHOL (test code = 2237) 130 MG/DL RISK RATIO LDL/HDL (test code = 3.02 RATIO 2238) HEMOGLOBIN [id number] 00:00:00 Test Item Value Reference Range Interpretation Comments HEMOGLOBIN A1c (test code = 48449) 6.8 % HEMOGLOBIN [id number] 00:00:00 Test Item Value Reference Range Interpretation Comments HEMOGLOBIN A1c (test code = 35396) 6.8 % HEMOGLOBIN [id number] 00:00:00 Test Item Value Reference Range Interpretation Comments HEMOGLOBIN A1c (test code = 09719) 6.8 % VITAMIN D, 25 [id number] 00:00:00 Test Item Value Reference Range Interpretation Comments VITAMIN D, 25 OH (test code = 4958) 15 NG/ML VITAMIN D, 25 [id number] 00:00:00 Test Item Value Reference Range Interpretation Comments VITAMIN D, 25 OH (test code = 4958) 15 NG/ML [id number] 00:00:00 Test Item Value Reference Range Interpretation Comments TSH, THIRD GENERATION (test code 0.894 UIU/ML = 2821) [id number] 00:00:00 Test Item Value Reference Range Interpretation Comments TSH, THIRD GENERATION (test code 0.894 UIU/ML = 2821) [id number] 00:00:00 Test Item Value Reference Range Interpretation Comments TSH, THIRD GENERATION (test code 0.894 UIU/ML = 2821) COMPREHENSIVE METABOLIC [id number] 00:00:00 Test Item Value Reference Range Interpretation Comments GLUCOSE (test code = 2217) 110 MG/DL BUN (test code = 2208) 11 MG/DL CREATININE (test code = 2214) 1.01 MG/DL eGFR (2020 CKD-EPI) (test code 66 ML/MIN/1.73 = 91973) CALC BUN/CREAT (test code = 11 RATIO 2235) SODIUM (test code = 2231) 144 MEQ/L POTASSIUM (test code = 2228) 4.2 MEQ/L CHLORIDE (test code = 2215) 108 MEQ/L CARBON DIOXIDE (test code = 24 MEQ/L 2205) CALCIUM (test code = 220) 9.6 MG/DL PROTEIN, TOTAL (test code = 7.6 G/DL 2228) ALBUMIN (test code = 2201) 4.3 G/DL CALC GLOBULIN (test code = 3.3 G/DL 2240) CALC A/G RATIO (test code = 1.3 RATIO 2234) BILIRUBIN, TOTAL (test code = 0.3 MG/DL 2206) ALKALINE PHOSPHATASE (test 100 U/L code = 2204) AST (test code = 2218) 17 U/L ALT (test code = 2219) 22 U/L COMPREHENSIVE METABOLIC [id number] 00:00:00 Test Item Value Reference Range Interpretation Comments GLUCOSE (test code = 2217) 110 MG/DL BUN (test code = 2208) 11 MG/DL CREATININE (test code = 2214) 1.01 MG/DL eGFR (2020 CKD-EPI) (test code 66 ML/MIN/1.73 = 47412) CALC BUN/CREAT (test code = 11 RATIO 2235) SODIUM (test code = 2231) 144 MEQ/L POTASSIUM (test code = 2228) 4.2 MEQ/L CHLORIDE (test code = 2215) 108 MEQ/L CARBON DIOXIDE (test code = 24 MEQ/L 2205) CALCIUM (test code = 2209) 9.6 MG/DL PROTEIN, TOTAL (test code = 7.6 G/DL 2228) ALBUMIN (test code = 2201) 4.3 G/DL CALC GLOBULIN (test code = 3.3 G/DL 2240) CALC A/G RATIO (test code = 1.3 RATIO 2234) BILIRUBIN, TOTAL (test code = 0.3 MG/DL 2206) ALKALINE PHOSPHATASE (test 100 U/L code = 2204) AST (test code = 2218) 17 U/L ALT (test code = 2219) 22 U/L CBC W/AUTO [id number] 00:00:00 Test Item Value Reference Range Interpretation Comments WBC (test code = 1001) 5.2 K/UL RBC (test code = 1002) 4.38 M/UL HEMOGLOBIN (test code = 1003) 12.2 G/DL HEMATOCRIT (test code = 1004) 35.8 % MCV (test code = 1005) 81.7 fL MCH (test code = 1006) 27.9 PG MCHC (test code = 1007) 34.1 G/DL RDW (test code = 1038) 14.1 % NEUTROPHILS (test code = 1008) 46.9 % LYMPHOCYTES (test code = 1010) 41.5 % MONOCYTES (test code = 1011) 8.3 % EOSINOPHILS (test code = 1012) 2.5 % BASOPHILS (test code = 1013) 0.6 % IMMATURE GRANULOCYTES (test 0.2 % code = 1036) NUCLEATED RBCS (test code = 0.0 /100WBC'S 1065) PLATELET COUNT (test code = 239 K/UL 1015) ABSOLUTE NEUTROPHILS (test code 2.45 K/UL = 1066) ABSOLUTE LYMPHOCYTES (test code 2.16 K/UL = 1067) ABSOLUTE MONOCYTES (test code = 0.43 K/UL 1068) ABSOLUTE EOSINOPHILS (test code 0.13 K/UL = 1040) ABSOLUTE BASOPHILS (test code = 0.03 K/UL 1069) ABS IMMATURE GRANULOCYTES (test 0.01 K/UL code = 1020) ABS NUCLEATED RBCS (test code = 0.00 K/UL 90420) CBC W/AUTO [id number] 00:00:00 Test Item Value Reference Range Interpretation Comments WBC (test code = 1001) 5.2 K/UL RBC (test code = 1002) 4.38 M/UL HEMOGLOBIN (test code = 1003) 12.2 G/DL HEMATOCRIT (test code = 1004) 35.8 % MCV (test code = 1005) 81.7 fL MCH (test code = 1006) 27.9 PG MCHC (test code = 1007) 34.1 G/DL RDW (test code = 1038) 14.1 % NEUTROPHILS (test code = 1008) 46.9 % LYMPHOCYTES (test code = 1010) 41.5 % MONOCYTES (test code = 1011) 8.3 % EOSINOPHILS (test code = 1012) 2.5 % BASOPHILS (test code = 1013) 0.6 % IMMATURE GRANULOCYTES (test 0.2 % code = 1036) NUCLEATED RBCS (test code = 0.0 /100WBC'S 1065) PLATELET COUNT (test code = 239 K/UL 1015) ABSOLUTE NEUTROPHILS (test code 2.45 K/UL = 1066) ABSOLUTE LYMPHOCYTES (test code 2.16 K/UL = 1067) ABSOLUTE MONOCYTES (test code = 0.43 K/UL 1068) ABSOLUTE EOSINOPHILS (test code 0.13 K/UL = 1040) ABSOLUTE BASOPHILS (test code = 0.03 K/UL 1069) ABS IMMATURE GRANULOCYTES (test 0.01 K/UL code = 1020) ABS NUCLEATED RBCS (test code = 0.00 K/UL 76218) CBC W/AUTO [id number] 00:00:00 Test Item Value Reference Range Interpretation Comments WBC (test code = 1001) 5.2 K/UL RBC (test code = 1002) 4.38 M/UL HEMOGLOBIN (test code = 1003) 12.2 G/DL HEMATOCRIT (test code = 1004) 35.8 % MCV (test code = 1005) 81.7 fL MCH (test code = 1006) 27.9 PG MCHC (test code = 1007) 34.1 G/DL RDW (test code = 1038) 14.1 % NEUTROPHILS (test code = 1008) 46.9 % LYMPHOCYTES (test code = 1010) 41.5 % MONOCYTES (test code = 1011) 8.3 % EOSINOPHILS (test code = 1012) 2.5 % BASOPHILS (test code = 1013) 0.6 % IMMATURE GRANULOCYTES (test 0.2 % code = 1036) NUCLEATED RBCS (test code = 0.0 /100WBC'S 1065) PLATELET COUNT (test code = 239 K/UL 1015) ABSOLUTE NEUTROPHILS (test code 2.45 K/UL = 1066) ABSOLUTE LYMPHOCYTES (test code 2.16 K/UL = 1067) ABSOLUTE MONOCYTES (test code = 0.43 K/UL 1068) ABSOLUTE EOSINOPHILS (test code 0.13 K/UL = 1040) ABSOLUTE BASOPHILS (test code = 0.03 K/UL 1069) ABS IMMATURE GRANULOCYTES (test 0.01 K/UL code = 1020) ABS NUCLEATED RBCS (test code = 0.00 K/UL 99790) LIPID [id number] 00:00:00 Test Item Value Reference Range Interpretation Comments CHOLESTEROL (test code = 2210) 197 MG/DL TRIGLYCERIDES (test code = 2232) 128 MG/DL HDL CHOLESTEROL (test code = 2220) 43 MG/DL CALC LDL CHOL (test code = 2237) 130 MG/DL RISK RATIO LDL/HDL (test code = 3.02 RATIO 2238) LIPID [id number] 00:00:00 Test Item Value Reference Range Interpretation Comments CHOLESTEROL (test code = 2210) 197 MG/DL TRIGLYCERIDES (test code = 2232) 128 MG/DL HDL CHOLESTEROL (test code = 2220) 43 MG/DL CALC LDL CHOL (test code = 2237) 130 MG/DL RISK RATIO LDL/HDL (test code = 3.02 RATIO 2238) HEMOGLOBIN [id number] 00:00:00 Test Item Value Reference Range Interpretation Comments HEMOGLOBIN A1c (test code = 40218) 6.8 % HEMOGLOBIN [id number] 00:00:00 Test Item Value Reference Range Interpretation Comments HEMOGLOBIN A1c (test code = 72963) 6.8 % HEMOGLOBIN [id number] 00:00:00 Test Item Value Reference Range Interpretation Comments HEMOGLOBIN A1c (test code = 62600) 6.8 % VITAMIN D, 25 [id number] 00:00:00 Test Item Value Reference Range Interpretation Comments VITAMIN D, 25 OH (test code = 4958) 15 NG/ML VITAMIN D, 25 [id number] 00:00:00 Test Item Value Reference Range Interpretation Comments VITAMIN D, 25 OH (test code = 4958) 15 NG/ML [id number] 00:00:00 Test Item Value Reference Range Interpretation Comments TSH, THIRD GENERATION (test code 0.894 UIU/ML = 2821) [id number] 00:00:00 Test Item Value Reference Range Interpretation Comments TSH, THIRD GENERATION (test code 0.894 UIU/ML = 2821) [id number] 00:00:00 Test Item Value Reference Range Interpretation Comments TSH, THIRD GENERATION (test code 0.894 UIU/ML = 2821) COMPREHENSIVE METABOLIC [id number] 00:00:00 Test Item Value Reference Range Interpretation Comments GLUCOSE (test code = 2217) 110 MG/DL BUN (test code = 2208) 11 MG/DL CREATININE (test code = 2214) 1.01 MG/DL eGFR (2020 CKD-EPI) (test code 66 ML/MIN/1.73 = 08678) CALC BUN/CREAT (test code = 11 RATIO 2235) SODIUM (test code = 2231) 144 MEQ/L POTASSIUM (test code = 2228) 4.2 MEQ/L CHLORIDE (test code = 2215) 108 MEQ/L CARBON DIOXIDE (test code = 24 MEQ/L 2205) CALCIUM (test code = 2209) 9.6 MG/DL PROTEIN, TOTAL (test code = 7.6 G/DL 2228) ALBUMIN (test code = 2201) 4.3 G/DL CALC GLOBULIN (test code = 3.3 G/DL 2240) CALC A/G RATIO (test code = 1.3 RATIO 2234) BILIRUBIN, TOTAL (test code = 0.3 MG/DL 2206) ALKALINE PHOSPHATASE (test 100 U/L code = 220) AST (test code = 2218) 17 U/L ALT (test code = 2219) 22 U/L COMPREHENSIVE METABOLIC [id number] 00:00:00 Test Item Value Reference Range Interpretation Comments GLUCOSE (test code = 2217) 110 MG/DL BUN (test code = 2208) 11 MG/DL CREATININE (test code = 2214) 1.01 MG/DL eGFR (2020 CKD-EPI) (test code 66 ML/MIN/1.73 = 68258) CALC BUN/CREAT (test code = 11 RATIO 2235) SODIUM (test code = 2231) 144 MEQ/L POTASSIUM (test code = 2228) 4.2 MEQ/L CHLORIDE (test code = 2215) 108 MEQ/L CARBON DIOXIDE (test code = 24 MEQ/L 2205) CALCIUM (test code = 2209) 9.6 MG/DL PROTEIN, TOTAL (test code = 7.6 G/DL 2228) ALBUMIN (test code = 2201) 4.3 G/DL CALC GLOBULIN (test code = 3.3 G/DL 2240) CALC A/G RATIO (test code = 1.3 RATIO 2234) BILIRUBIN, TOTAL (test code = 0.3 MG/DL 2206) ALKALINE PHOSPHATASE (test 100 U/L code = 2204) AST (test code = 2218) 17 U/L ALT (test code = 2219) 22 U/L
[2023-10-23 08:44] LABS: SARS-CoV-2 Antigen Rapid Res Negative (Negative)
--- NOTE | 2023-10-23 08:51 | RAD REPORT ---
EXAM DESCRIPTION: RAD - Chest Pa And Lat (2 Views) - 10/23/2023 8:44 am CLINICAL HISTORY: COUGH COMPARISON: No comparisons TECHNIQUE: PA and lateral views of the chest were obtained. FINDINGS: The lungs are clear. Heart size is normal and central vasculature is within normal limits. No pleural effusion or pneumothorax seen. No acute bony finding noted. IMPRESSION: No acute cardiopulmonary process.
--- NOTE | 2023-10-23 09:06 | EDPHYS ---
Physician Documentation [facility] Name: Pushpa Hays Age: 58 yrs Sex: Female : 1965 Arrival Date: 10/23/2023 Time: 07:43 Bed 2 Private MD: ED Physician Kevin Wolf HPI: 10/23 09:15 This 58 yrs old Black Female presents to ER via Ambulatory with complaints of Flu rt Symptoms. 09:15 Patient presents to the ED with about 3 days of 10 days of cough, congestion, sore rt throat. Patient states that she gags herself when coughing. Denies chest pain, shortness of breath. Denies other acute complaints, symptoms are moderate in severity, no other aggravating elevating factors.. Historical: - Allergies: 07:50 No Known Allergies; bp - PMHx: 07:50 Hypertension; ibs; osteoarthritis; GERD; bp - Immunization history:: Adult Immunizations up to date. - Social history:: Smoking status: Patient denies any tobacco usage or history of. ROS: 09:15 Constitutional: Negative for fever, chills, and weight loss, Cardiovascular: Negative rt for chest pain, palpitations, and edema, Abdomen/GI: Negative for abdominal pain, nausea, vomiting, diarrhea, and constipation, 09:15 Skin: Negative for injury, rash, and discoloration, Neuro: Negative for headache, weakness, numbness, tingling, and seizure, 09:15 ENT: Positive for rhinorrhea, sore throat, 09:15 Respiratory: Positive for cough, Negative for shortness of breath, Exam: 09:15 Constitutional: This is a well developed, well nourished patient who is awake, alert, rt and in no acute distress. Head/Face: Normocephalic, atraumatic. Chest/axilla: Normal chest wall appearance and motion. Nontender with no deformity. No lesions are appreciated. Cardiovascular: Regular rate and rhythm with a normal S1 and S2. No gallops, murmurs, or rubs. Normal PMI, no JVD. No pulse deficits. Respiratory: Lungs have equal breath sounds bilaterally, clear to auscultation and percussion. No rales, rhonchi or wheezes noted. No increased work of breathing, no retractions or nasal flaring. Abdomen/GI: Soft, non-tender, with normal bowel sounds. No distension or tympany. No guarding or rebound. No evidence of tenderness throughout. Skin: Warm, dry with normal turgor. Normal color with no rashes, no lesions, and no evidence of cellulitis. MS/ Extremity: Pulses equal, no cyanosis. Neurovascular intact. Full, normal range of motion. Neuro: Awake and alert, GCS 15, oriented to person, place, time, and situation. Cranial nerves II-XII grossly intact. Motor strength 5/5 in all extremities. Sensory grossly intact. Cerebellar exam normal. Normal gait. Psych: Awake, alert, with orientation to person, place and time. Behavior, mood, and affect are within normal limits. 09:15 ENT: Posterior pharyngeal erythema without exudates, tonsillar hypertrophy, uvula is midline. Vital Signs: 07:53 BP 170 / 120; Pulse 94; Resp 18; Temp 98.8; Pulse Ox 99% ; Weight 117.93 kg; Height 5 ll1 ft. 6 in. ; Pain 6/10; 08:22 BP 131 / 89; Pulse 85; Resp 17; Temp 97.1(TE); Pulse Ox 100% ; Pain 0/10; tm6 09:17 BP 127 / 86; Pulse 78; Resp 18; Temp 97.9; Pulse Ox 99% on R/A; ph 07:53 Body Mass Index 41.96 (117.93 kg, 167.64 cm) ll1 07:53 Pain Scale: Adult ll1 08:22 Pain Scale: Adult tm6 MDM: 07:53 Patient medically screened. rt 09:15 Differential Diagnosis Pneumonia, strep, flu, COVID, URI. Data reviewed: vital signs, rt nurses notes, lab test result(s), radiologic studies. Independent interpretation of the following test(s) in the Emergency Department X-Ray: My interpretation is No consolidations in interpretation of x-ray images. Test considered but Not performed: CT: Low suspicion for RPA, [employer], Jadiel's angina, CT scan not indicated. Care significantly affected by the following chronic conditions: Diabetes, Hypertension. Counseling: I had a detailed discussion with the patient and/or guardian regarding the historical points, exam findings, and any diagnostic results supporting the discharge/admit diagnosis, lab results, radiology results, the need for outpatient follow up, to return to the emergency department if symptoms worsen or persist or if there are any questions or concerns that arise at home. 12 08:05 Order name: Influenza Screen (a \T\ B); Complete Time: 08:59 rt 12 08:05 Order name: SARS RAPID; Complete Time: 08:59 rt 12 08:05 Order name: Strep; Complete Time: 08:59 rt 12 08:47 Order name: Throat Culture EDMS 10/23 08:05 Order name: Chest Pa And Lat (2 Views) XRAY; Complete Time: 08:59 rt Administered Medications: No medications were administered Disposition Summary: 10/23/23 09:05 Discharge Ordered Notes: Location: Home rt Problem: new rt Symptoms: are unchanged rt Condition: Stable rt Diagnosis - Acute upper respiratory infection, unspecified rt - Essential (primary) hypertension rt - Diabetes rt Followup: rt - With: Private Physician - When: 2 - 3 days - Reason: Discharge Instructions: - Discharge Summary Sheet rt - Viral Respiratory Infection rt Forms: - Work release form rt - Medication Reconciliation Form rt - Thank You Letter rt - Antibiotic Education rt - Prescription Opioid Use rt - Patient Portal Instructions rt - Leadership Thank You Letter rt Prescriptions: - albuterol sulfate 90 mcg/actuation Inhalation HFA Aerosol Inhaler - inhale 2 inhalation INHALATION route every 3 hours as needed for bronchospasm; rt 2 Each; Refills: 0, Product Selection Permitted - amlodipine 10 mg Oral tablet - take 1 tablet ORAL route daily; 30 tablet; Refills: 0, Product Selection rt Permitted - losartan-hydrochlorothiazide 100-25 mg Oral tablet - take 1 tablet ORAL route daily; 30 tablet; Refills: 0, Product Selection rt Permitted - Tessalon Perles 100 mg Oral capsule - take 1 capsule ORAL route every 8 hours As needed; 20 capsule; Refills: 0, rt Product Selection Permitted - Metformin 500 mg Oral tablet - take 1 tablet ORAL route once daily for 7 days Then take 1 tablet with morning rt meals AND evening meals; 60 tablet; Refills: 0, Product Selection Permitted Signatures: Dispatcher [employer] Darius Schofield, RN RN Kevin Rosales MD MD rt
--- NOTE | 2023-10-23 09:06 | ER ---
Nurse's Notes [facility] Name: Pushpa Hays Age: 58 yrs Sex: Female : 1965 Arrival Date: 10/23/2023 Time: 07:43 Bed 2 Private MD: Diagnosis: Acute upper respiratory infection, unspecified;Essential (primary) hypertension;Diabetes Presentation: 10/23 07:53 Chief complaint: Patient states: Cough, congestion, sore throat, chills, N/V with ll1 gagging for 7-10 days. Coronavirus screen: Vaccine status: Patient reports being unvaccinated. Client denies travel out of the [place] in the last 14 days. chills, congestion, cough unrelated to allergies, fatigue, headache, muscle pain, sore throat, Client presents with at least one sign or symptom that may indicate coronavirus-19. Standard/surgical mask placed on the client. Ebola Screen: Patient denies travel to an Ebola-affected area in the 21 days before illness onset. Initial Sepsis Screen: Does the patient meet any 2 criteria? No. Patient's initial sepsis screen is negative. Does the patient have a suspected source of infection? No. Patient's initial sepsis screen is negative. Risk Assessment: Do you want to hurt yourself or someone else? Patient reports no desire to harm self or others. Onset of symptoms was October 14, 2023. 07:53 Method Of Arrival: Ambulatory ll1 07:53 Acuity: KARINA 3 ll1 Triage Assessment: 07:54 General: Appears uncomfortable, ill, Behavior is calm, cooperative, appropriate for ll1 age. Pain: Complains of pain in head Pain currently is 6 out of 10 on a pain scale. Quality of pain is described as aching. EENT: Reports nasal congestion pain when swallowing. Respiratory: Reports cough that is. GI: Reports nausea, vomiting. Historical: - Allergies: 07:50 No Known Allergies; bp - PMHx: 07:50 Hypertension; ibs; osteoarthritis; GERD; bp - Immunization history:: Adult Immunizations up to date. - Social history:: Smoking status: Patient denies any tobacco usage or history of. Screenin:22 [facility] ED Fall Risk Assessment (Adult) History of falling in the last 3 months, tm6 including since admission No falls in past 3 months (0 pts). Abuse screen: Denies threats or abuse. Denies injuries from another. Nutritional screening: No deficits noted. Tuberculosis screening: No symptoms or risk factors identified. 08:23 [facility] ED Fall Risk Assessment (Adult) History of falling in the last 3 months, ph including since admission No falls in past 3 months (0 pts) Confusion or Disorientation No (0 pts) Intoxicated or Sedated No (0 pts) Impaired Gait No (0 pts) Mobility Assist Device Used No (0 pt) Altered Elimination No (0 pt) Score/Fall Risk Level 0 - 2 = Low Risk Oriented to surroundings, Maintained a safe environment, Provided non-skid footwear, Hourly rounding (assess needs \T\ fall precautionary measures) done. Abuse screen: Denies threats or abuse. Denies injuries from another. Nutritional screening: No deficits noted. Tuberculosis screening: No symptoms or risk factors identified. Assessment: 08:22 General: Appears in no apparent distress. Behavior is calm, cooperative. Pain: Denies tm6 pain. Neuro: Level of Consciousness is awake, alert, obeys commands, Oriented to person, place, time, situation. Cardiovascular: Capillary refill < 3 seconds Patient's skin is warm and dry. Respiratory: Airway is patent Respiratory effort is even, unlabored, Respiratory pattern is regular, symmetrical. GI: Abdomen is round non-distended. : No signs and/or symptoms were reported regarding the genitourinary system. EENT: No signs and/or symptoms were reported regarding the EENT system. Derm: No signs and/or symptoms reported regarding the dermatologic system. Musculoskeletal: No signs and/or symptoms reported regarding the musculoskeletal system. 09:17 Reassessment: Patient appears in no apparent distress at this time. Patient and/or ph family updated on plan of care and expected duration. Pain level reassessed. Patient is alert, oriented x 3, equal unlabored respirations, skin warm/dry/pink. Vital Signs: 07:53 BP 170 / 120; Pulse 94; Resp 18; Temp 98.8; Pulse Ox 99% ; Weight 117.93 kg; Height 5 ll1 ft. 6 in. ; Pain 6/10; 08:22 BP 131 / 89; Pulse 85; Resp 17; Temp 97.1(TE); Pulse Ox 100% ; Pain 0/10; tm6 09:17 BP 127 / 86; Pulse 78; Resp 18; Temp 97.9; Pulse Ox 99% on R/A; ph 07:53 Body Mass Index 41.96 (117.93 kg, 167.64 cm) ll1 07:53 Pain Scale: Adult ll1 08:22 Pain Scale: Adult tm6 ED Course: 07:45 Patient arrived in ED. mg5 07:45 Kevin Wolf MD is Attending Physician. rt 07:50 Arm band placed on. bp 07:52 Keyona Davenport RN is Primary Nurse. ph 07:54 Triage completed. ll1 08:22 Provided Education on: swabbing for flu/covid/strep. tm6 08:22 Strep Sent. tm6 08:22 SARS RAPID Sent. tm6 08:22 Influenza Screen (a \T\ B) Sent. tm6 08:22 No provider procedures requiring assistance completed. tm6 08:23 Patient has correct armband on for positive identification. Placed in gown. Bed in low ph position. Call light in reach. Side rails up X 1. Pulse ox on. NIBP on. Door closed. Noise minimized. Lights dimmed. 08:46 Chest Pa And Lat (2 Views) XRAY In Process Unspecified. EDMS 09:18 Patient did not have IV access during this emergency room visit. ph Administered Medications: No medications were administered Medication: 08:22 VIS not applicable for this client. tm6 Outcome: 09:05 Discharge ordered by . rt 09:17 Discharged to home ambulatory, ph 09:17 Condition: good 09:17 Discharge instructions given to patient, Instructed on discharge instructions, follow up and referral plans. medication usage, Demonstrated understanding of instructions, follow-up care, medications, Prescriptions given X 5 09:18 Patient left the ED. ph Signatures: Dispatcher [employer] EDKS Keyona Davenport, RN RN ph Darius Buitrago RN RN bp Khari Moore RN RN ll1 Kevin Wolf MD MD rt Jacky Vicky mg5 Jack Rojas RN RN tm6
[2023-10-23 09:26] VITALS: BP 127/86; TEMP 97.9; O2SAT 99
== END 2023-10-23 09:18 | disposition home or self-care (01) ==
LOC: ER 07:43
DX: J06.9 Acute upper respiratory infection, unspecified (principal); E11.9 Type 2 diabetes mellitus without complications; I10 Essential (primary) hypertension; Z11.52 Encounter for screening for COVID-19
CPT/HCPCS: 36415; 71046; 87070; 87081; 87804; 87811; 99284

== ENCOUNTER 2024-03-21 13:11 | Emergency (ER) | payer OTHER ==
--- OUTSIDE RECORDS SUMMARY | 2024-03-21 13:16 | XMS REPORT | Continuity of Care Document ---
Author Name Unknown Address [address] [facility] [address]. [address] [place] [address] [facility] thconnect Address [address] [facility] [place] [place]. [address] [place] [address] Care Team Providers Care Revenue Specialist Name Role Phone Valeria Stone Primary Care Physician JOSE VENEGAS Attending Clinician Unavailable MARI LEVI Attending Clinician Unava ilable LAB90 Attending Clinician Unavailable JULIA MARTINEZ Attending Clinician Unavailable CLAUS PA Attending Clinician Unavailable CAMILLE BENAVIDES Attending Clinician Unavailable SHARON HERNANDEZ Attending Clinician Unava ilable CHACE LISA Attending Clinician Unavailable NOEMI SCHOFIELD Attending Clinician Unavailable Payers Payer Name Policy Type Policy Number Effective Date Expirati on Date Source [facility] S O REWRITER 94 [place] 9 [id number] 2023 00:00:00 Problems Condition Name Condition Details Condition Category Status Onset Date Resolution Date Last Treatment Date Treating Clinician Comments Source 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 emia (multi HCC) 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 emia (multi HCC) Disease Active 2022-11 00:00: 00 Marissa novak Depression with anxiety - Not Controlled Depression with anxiety - Not Controlled Disease Active 2022-11 00:00: 00 Marissa novak Osteoporos is Osteoporos is Disease Active 2022-11 00:00: 00 Marissa Soto - Externa l IBS (irritable bowel syndrome) IBS (irritable bowel syndrome) Disease Active 2022-11 00:00: 00 Marissa Soto - Externa l Hyperlipid emia Hyperlipid emia Disease Active 2022-11 00:00: 00 Marissa Soto - Externa l HTN (hypertens ion) HTN (hypertens ion) Disease Active 2022-11 00:00: 00 Marissa Soto - Externa l GERD (gastroeso phageal reflux disease) GERD (gastroeso phageal reflux disease) Disease Active 2022-11 00:00: 00 Marissa Soto - Externa l Asthma ([facility]-HCC) Asthma ([facility]-H[facility]) Disease Active 2022-11 00:00: 00 Marissa Soto - Externa l Allergies, Adverse Reactions, Alerts Allergy Name Allergy Type Status Severity Reaction(s) Onset Date Inactive Date Treating Clinician Comments Source Codeine Propensi ty to adverse reaction s Active 05-31 00:00: 00 Marissa Wymana scarlet Mesna - Intraven ous Propensi ty to adverse reaction to drug Active 05-31 00:00: 00 Social History Social Habit Start Date Stop Date Quantity Comments Source Sexual orientation 2023-11-08 08:37:30 Heterosexual (finding) Marissa Soto - External Alcohol intake 2024-02-07 00:00:00 2024-02-07 00:00:00 Current drinker of alcohol (finding) Marissa Soto - External History of Social function 2024-02-07 00:00:00 2024-02-07 00:00:00 Marissa Soto - External Tobacco use and exposure 2023-11-08 00:00:00 2023-11-08 00:00:00 Smokeless tobacco non-user Marissa Kaur External Alcohol Comment 2023-11-08 00:00:00 2023-11-08 00:00:00 rarely Marissa Soto - External Sex Assigned At 1965 00:00:00 1965 00[birth year]:00 F Marissa Soto - External Smoking Status Start Date Stop Date Source Never smoked tobacco Marissa Low Medications Ordered Medication Name Filled Medication Name Start Date Stop Date Current Medication? Ordering Clinician Indication Dosage Frequency Signature (SIG) Comments Components Source Amlodipine Besylate 10 MG oral Tablet 02-06 13:12: 17 Yes 10mg Take 1 tablet (10 mg total) by mouth daily. Marissa novak Pseudoeph-B romphen-DM 30-2-10 MG/5ML oral Syrup 02-06 00:00: 00 Yes [id number] 10mL Q.25D Take 10 mL by mouth 4 times daily as needed. Marissa novak Ondansetron (ZOFRAN) 8 MG oral tablet 02-06 00:00: 00 Yes [id number] 8mg Q.[id number] 3D Take 1 tablet (8 mg total) by mouth every 8 hours as needed for nausea. Marissa novak Amlodipine Besylate 10 MG oral Tablet 01-07 09:11: 23 Yes 10mg Take 1 tablet (10 mg total) by mouth daily. Marissa novak Trulicity 3 MG/0.5ML subcutaneou s Solution Pen-injecto r 01-07 00:00: 00 Yes [id number] 3 3mg Inject 3 mg into the skin once a week. Marissa novak Ondansetron (ZOFRAN) 8 MG oral tablet 01-07 00:00: 00 Yes [id number] 8mg Q.[id number] 3D Take 1 tablet (8 mg total) by mouth every 8 hours as needed for nausea. Marissa novak Sertraline HCl 100 MG oral Tablet 01-07 00:00: 00 Yes [id number] 100mg Take 1 tablet (100 mg total) by mouth daily. Marissa novak Lubiproston e 24 MCG oral Capsule 12-20 00:00: 00 Yes [id number] 24ug Q.5D Take 1 capsule (24 mcg total) by mouth 2 times daily as needed for constipati on. Marissa novak linaCLOtide (Linzess) 145 MCG oral Capsule 12-14 13:56: 01 12-14 00:00 :00 No 145ug Take 1 capsule (145 mcg total) by mouth daily. Marissa novak Amlodipine Besylate 10 MG oral Tablet 12-14 13:18: 44 Yes 10mg Take 1 tablet (10 mg total) by mouth daily. Marissa novak Sertraline HCl 50 MG oral Tablet 12-14 00:00: 00 Yes [id number] 50mg Take 1 tablet (50 mg total) by mouth daily. Marissa novak Trulicity 1.5 MG/0.5ML subcutaneou s Solution Pen-injecto r 12-14 00:00: 00 Yes [id number] 3 1.5mg Inject 1.5 mg into the skin once a week. Marissa novak linaCLOtide (Linzess) 145 MCG oral Capsule 12-14 00:00: 00 Yes [id number] 145ug Take 1 capsule (145 mcg total) by mouth daily. Marissa novak Losartan Potassium-H CTZ 100-25 MG oral Tablet 12-14 00:00: 00 Yes [id number] 1{tbl} Take 1 tablet by mouth daily. Marissa novak linaCLOtide (Linzess) 145 MCG oral Capsule 12-10 08:34: 25 Yes 145ug Take 1 capsule (145 mcg total) by mouth daily. Marissa novak Amlodipine Besylate 10 MG oral Tablet 12-10 08:34: 25 Yes 10mg Take 1 tablet (10 mg total) by mouth daily. Marissa novak Cetirizine HCl (ZyrTEC Allergy) 10 MG oral Capsule 12-10 00:00: 00 Yes [id number] 10mg Take 1 capsule (10 mg total) by mouth daily. Marissa novak Montelukast (Singulair) 10 MG oral Tablet tablet 12-10 00:00: 00 Yes [id number] 10mg Take 1 tablet (10 mg total) by mouth nightly. Marissa novak Methylpredn isolone Acetate (Depo-Medro l) 40 mg/ml - Physician Administere ken ([id number]) 12-06 19:30: 00 12-06 20:45 :00 No [id number] 40mg Marissa novak linaCLOtide (Linzess) 145 MCG oral Capsule 12-06 13:00: 26 Yes 145ug Take 1 capsule (145 mcg total) by mouth daily. Marissa novak Amlodipine Besylate 10 MG oral Tablet 12-06 13:00: 26 Yes 10mg Take 1 tablet (10 mg total) by mouth daily. Marissa novak Atorvastati n Calcium 20 MG oral Tablet 11-21 00:00: 00 Yes [id number] 3 20mg Take 1 tablet (20 mg total) by mouth daily. Marissa novak hydroCHLORO thiazide 12.5 MG oral Capsule 2022-11 15:04: 07 11-16 00:00 :00 No 12.5mg Take 1 capsule (12.5 mg total) by mouth daily. Marissa novak linaCLOtide (Linzess) 145 MCG oral Capsule 2022-11 15:04: 03 Yes 145ug Take 1 capsule (145 mcg total) by mouth daily. Marissa novak LISINOPRIL- HCTZ 20-12.5 MG oral Tablet 2022-11 15:03: 58 11-16 00:00 :00 No 1{tbl} Take 1 tablet by mouth every morning. Marissa novak Losartan Potassium (COZAAR) 100 MG oral Tablet 2022-11 15:03: 33 11-16 00:00 :00 No 100mg Take 1 tablet (100 mg total) by mouth daily. Marissa novak Baclofen 10 MG oral Tablet 2022-11 15:03: 10 11-16 00:00 :00 No 10mg Take 1 tablet (10 mg total) by mouth 3 times daily. Marissa novak Amlodipine Besylate 10 MG oral Tablet 2022-11 15:03: 06 Yes 10mg Take 1 tablet (10 mg total) by mouth daily. Marissa novak Sertraline HCl 25 MG oral Tablet 2022-11 00:00: 00 12-14 00:00 :00 No [id number] 25mg Take 1 tablet (25 mg total) by mouth daily. Marissa novak Trulicity 0.75 MG/0.5ML subcutaneou s Solution Pen-injecto r 2022-11 00:00: 00 12-14 00:00 :00 No [id number] 3 .75mg Inject 0.75 mg into the skin once a week. Marissa novak Famotidine 40 MG oral Tablet 2022-11 14:44: 11-08 00:00 :00 No 40mg Take 1 tablet (40 mg total) by mouth daily. Marissa novak Alendronate Sodium 70 MG oral Tablet 2022-11 14:44: 11-08 00:00 :00 No 70mg Take 1 tablet (70 mg total) by mouth every 7 days. Marissa novak Ondansetron (ZOFRAN) 8 MG oral tablet 2022-11 14:44: 11-08 00:00 :00 No 8mg Q.[id number] 3D Take 1 tablet (8 mg total) by mouth every 8 hours as needed for nausea. Marissa novak linaCLOtide (Linzess) 145 MCG oral Capsule 2022-11 14:28: 01 Yes 145ug Take 1 capsule (145 mcg total) by mouth daily. Marissa novak Amlodipine Besylate 10 MG oral Tablet 2022-11 14:28: 01 Yes 10mg Take 1 tablet (10 mg total) by mouth daily. Marissa novak Baclofen 10 MG oral Tablet 2022-11 14:28: 01 Yes 10mg Take 1 tablet (10 mg total) by mouth 3 times daily. Marissa novak hydroCHLORO thiazide 12.5 MG oral Capsule 2022-11 14:28: 01 Yes 12.5mg Take 1 capsule (12.5 mg total) by mouth daily. Marissa novak Famotidine 40 MG oral Tablet 2022-11 00:00: 00 Yes [id number] 40mg Take 1 tablet (40 mg total) by mouth daily. Marissa novak Omeprazole 40 MG oral Delayed Release Capsule 2022-11 00:00: 00 Yes [id number] 40mg Take 1 capsule (40 mg total) by mouth daily. Marissa novak Alendronate Sodium 70 MG oral Tablet 2022-11 00:00: 00 Yes [id number] 70mg Take 1 tablet (70 mg total) by mouth every 7 days. Marissa novak Ondansetron (ZOFRAN) 8 MG oral tablet 2022-11 00:00: 00 01-07 00:00 :00 No [id number] 8mg Q.[id number] 3D Take 1 tablet (8 mg total) by mouth every 8 hours as needed for nausea. Marissa novak Azithromyci n 250 MG oral Tablet 2022-11 00:00: 00 11-14 05:59 :00 No [id number] Take 2 tablets by mouth on day 1 then 1 tablet by mouth daily for 4 days thereafter .. Marissa novak Losartan Potassium-H CTZ 100-25 MG oral Tablet 2022-11 00:00: 00 Yes 1{tbl} Take 1 tablet by mouth daily. Marissa novak Albuterol HFA 108 (90 Base) MCG/ACT IN AERS 2022-11 00:00: 00 Yes 2{puff} Q4H Inhale 2 puffs into the lungs every 4 hours as needed. Marissa novak Metformin HCl 500 MG oral Tablet 2022-11 00:00: 00 12-06 00:00 :00 No 500mg Take 1 tablet (500 mg total) by mouth daily (with breakfast) . Marissa novak TAKE ONE (1) TABLET(S) BY MOUTH ONCE A DAY. 9-16 00:00: 00 No TAKE ONE (1) TABLET(S) BY MOUTH ONCE A DAY. - 00:00: 00 No 40 TAKE ONE (1) TABLET(S) BY MOUTH ONCE A DAY. -17 00:00: 00 No 40 Dose Unknown 8- 00:00: 00 No Dose Unknown 06-26 00:00: 00 No TAKE 1 TABLET TWICE DAILY. 8- 00:00: 00 No 500 TAKE 1 TABLET TWICE DAILY. 06-21 00:00: 00 No 500 TAKE 1 TABLET TWICE DAILY. 06-03 00:00: 00 No 500 TAKE 1 TABLET TWICE DAILY. 06-03 00:00: 00 No 500 losartan 100 mg-hydrochl orothiazide 12.5 mg tablet 06-02 00:00: 00 No 1mg amlodipine 10 mg tablet 06-02 00:00: 00 No 1mg losartan 100 mg-hydrochl orothiazide 12.5 mg tablet 06-02 00:00: 00 No 1mg amlodipine 10 mg tablet 06-02 00:00: 00 No 1mg Abilify 5 mg tablet 05-16 00:00: 00 No 15mg Cymbalta 30 mg capsule,del ayed release 05-16 00:00: 00 No 1mg Dose Unknown 05-16 00:00: 00 No Abilify 5 mg tablet 05-16 00:00: 00 No 15mg Cymbalta 30 mg capsule,del ayed release 05-16 00:00: 00 No 1mg Dose Unknown 05-16 00:00: 00 No Abilify 5 mg tablet 04-26 00:00: 00 No 1mg trazodone 50 mg tablet 04-26 00:00: 00 No 1mg Dose Unknown 04-26 00:00: 00 No Abilify 5 mg tablet 04-26 00:00: 00 No 1mg trazodone 50 mg tablet 04-26 00:00: 00 No 1mg Dose Unknown 04-26 00:00: 00 No famotidine 40 mg tablet 04-24 00:00: 00 No 1mg naproxen 500 mg tablet 04-24 00:00: 00 No 1mg Dose Unknown 04-24 00:00: 00 No famotidine 40 mg tablet 04-24 00:00: 00 No 1mg naproxen 500 mg tablet 04-24 00:00: 00 No 1mg Dose Unknown 04-24 00:00: 00 No metformin ER 500 mg tablet,exte nded release 24 hr 04-23 00:00: 00 No 1mg Vitamin D2 1,250 mcg (50,000 unit) capsule 04-23 00:00: 00 No 1(50,00 0 unit) metformin ER 500 mg tablet,exte nded release 24 hr 04-23 00:00: 00 No 1mg Vitamin D2 1,250 mcg (50,000 unit) capsule 04-23 00:00: 00 No 1(50,00 0 unit) montelukast 10 mg tablet 04-19 00:00: 00 No 1mg amlodipine 10 mg tablet 04-19 00:00: 00 No 1mg Dose Unknown 04-19 00:00: 00 No ipratropium 0.5 mg-albutero l 3 mg (2.5 mg base)/3 mL nebulizatio n soln 04-19 00:00: 00 No 1mg base)/3 mL famotidine 40 mg tablet 04-19 00:00: 00 No 1mg loratadine 10 mg tablet 04-19 00:00: 00 No 1mg losartan 100 mg tablet 04-19 00:00: 00 No 1mg amlodipine 10 mg tablet 04-19 00:00: 00 No 1mg montelukast 10 mg tablet 04-19 00:00: 00 No 1mg losartan 100 mg tablet 04-19 00:00: 00 No 1mg naproxen 500 mg tablet 04-19 00:00: 00 No 1mg ondansetron HCl 8 mg tablet 04-19 00:00: 00 No 1mg alendronate 70 mg tablet 04-19 00:00: 00 No 1mg omeprazole 40 mg capsule,del ayed release 04-19 00:00: 00 No 1mg hydrochloro thiazide 12.5 mg capsule 04-19 00:00: 00 No 1mg Linzess 145 mcg capsule 04-19 00:00: 00 No 1mcg naproxen 500 mg tablet 04-19 00:00: 00 No 1mg ondansetron HCl 8 mg tablet 04-19 00:00: 00 No 1mg alendronate 70 mg tablet 04-19 00:00: 00 No 1mg omeprazole 40 mg capsule,del ayed release 04-19 00:00: 00 No 1mg hydrochloro thiazide 12.5 mg capsule 04-19 00:00: 00 No 1mg Linzess 145 mcg capsule 04-19 00:00: 00 No 1mcg Dose Unknown 04-19 00:00: 00 No albuterol sulfate HFA 90 mcg/actuati on aerosol inhaler 04-19 00:00: 00 No 1mcg/ac tuation famotidine 40 mg tablet 04-19 00:00: 00 No 1mg loratadine 10 mg tablet 04-19 00:00: 00 No 1mg Vital Signs Vital Name Observation Time Observation Value Comments S ource Systolic blood pressure 2024-02-07 18:07:00 118 mm[Hg] Marissa casas - External Diastolic blood pressure 2024-02-07 18:07:00 78 mm[Hg] Marissa casas - External Heart rate 2024-02-07 18:07:00 72 /min Parris Soto - External Body temperature 2024-02-07 18:07:00 36.94 Judy Marissa Seybold - External Respiratory rate 2024-02-07 18:07:00 16 /min Marissa Seybold - External Body height 2024-02-07 18:07:00 167.6 cm Sarah ey Seybold - External Body weight 2024-02-07 18:07:00 112.662 kg Sarah ey Seybold - External BMI 2024-02-07 18:07:00 40.09 kg/m2 Sarah ey Seybold - External Oxygen saturation in Arterial blood by Pulse oximetry 2024-02-07 18:07:00 98 /min Marissa Seybo ld - External Systolic blood pressure 2024-01-07 15:08:00 130 mm[Hg] Marissa Seybo ld - External Diastolic blood pressure 2024-01-07 15:08:00 80 mm[Hg] Marissa Seybo ld - External Heart rate 2024-01-07 15:08:00 71 /min Kelse y Seybold - External Body temperature 2024-01-07 15:08:00 36 Judy Marissa Seybold - External Respiratory rate 2024-01-07 15:08:00 14 /min Marissa Seybold - External Body height 2024-01-07 15:08:00 167.6 cm Sarah ey Seybold - External Body weight 2024-01-07 15:08:00 115.667 kg Sarah ey Seybold - External BMI 2024-01-07 15:08:00 41.16 kg/m2 Sarah ey Seybold - External Systolic blood pressure 2023-12-14 19:15:00 124 mm[Hg] Marissa Seybo ld - External Diastolic blood pressure 2023-12-14 19:15:00 62 mm[Hg] Marissa Seybo ld - External Heart rate 2023-12-14 19:15:00 84 /min Kelse y Seybold - External Body temperature 2023-12-14 19:15:00 37.06 Judy Marissa Seybold - External Respiratory rate 2023-12-14 19:15:00 15 /min Marissa Seybold - External Body height 2023-12-14 19:15:00 167.6 cm Sarah ey Seybold - External Body weight 2023-12-14 19:15:00 115.667 kg Sarah ey Seybold - External BMI 2023-12-14 19:15:00 41.16 kg/m2 Sarah ey Seybold - External Systolic blood pressure 2023-12-10 14:31:00 138 mm[Hg] Marissa Seybo ld - External Diastolic blood pressure 2023-12-10 14:31:00 78 mm[Hg] Marissa Seybo ld - External Heart rate 2023-12-10 14:31:00 82 /min Kelse y Seybold - External Body temperature 2023-12-10 14:31:00 36.28 Judy Marissa Seybold - External Respiratory rate 2023-12-10 14:31:00 15 /min Marissa Seybold - External Body height 2023-12-10 14:31:00 167.6 cm Sarah ey Seybold - External Body weight 2023-12-10 14:31:00 118.389 kg Sarah ey Seybold - External BMI 2023-12-10 14:31:00 42.13 kg/m2 Sarah ey Seybold - External Body height 2023-12-06 18:58:00 167.6 cm Sarah ey Seybold - External Body weight 2023-12-06 18:58:00 118.026 kg Sarah ey Seybold - External BMI 2023-12-06 18:58:00 42.00 kg/m2 Sarah ey Seybold - External Systolic blood pressure 2023-11-16 20:56:00 126 mm[Hg] Marissa Kaurybo ld - External Diastolic blood pressure 2023-11-16 20:56:00 88 mm[Hg] Marissa Seybo ld - External Heart rate 2023-11-16 20:56:00 97 /min Kelse y Seybold - External Body temperature 2023-11-16 20:56:00 36.39 Judy Marissa Seybold - External Respiratory rate 2023-11-16 20:56:00 15 /min Marissa Seybold - External Body height 2023-11-16 20:56:00 167.6 cm Sarah ey Seybold - External Body weight 2023-11-16 20:56:00 117.482 kg Sarah ey Seybold - External BMI 2023-11-16 20:56:00 41.80 kg/m2 Sarah gorman Seybold - External Systolic blood pressure 2023-11-08 20:21:00 148 mm[Hg] Marissa Ritchie ld - External Diastolic blood pressure 2023-11-08 20:21:00 86 mm[Hg] Marissa Olmoso ld - External Heart rate 2023-11-08 20:21:00 78 /min Parris y ybold - External Body temperature 2023-11-08 20:21:00 36.56 Judy Marissa Olmosold - External Respiratory rate 2023-11-08 20:21:00 20 /min Marissa Olmosold - External Body height 2023-11-08 20:21:00 167.6 cm Sarah gorman Seybold - External Body weight 2023-11-08 20:21:00 120.203 kg Sarah gorman Seybold - External BMI 2023-11-08 20:21:00 42.77 kg/m2 Sarah gorman Seybold - External Oxygen saturation in Arterial blood by Pulse oximetry 2023-11-08 20:21:00 99 /min Marissa Ritchie ld - External BP Systolic 2022-07-14 15:21:00 116 mm[Hg] BP [...] /min Respiratory Rate 2022-04-19 10:57:00 17.00 /min Plan of Care Planned Activity Planned Date Details Comments Source Goal Plan of Care Note [code = 77042-4] Goal Plan of Care Note [code = 95314-0] Goal Plan of Care Note [code = 07857-5] Goal Plan of Care Note [code = 24690-7] Goal Plan of Care Note [code = 14631-4] Goal Plan of Care Note [code = 13112-0] Goal Plan of Care Note [code = 10592-7] Goal Plan of Care Note [code = 62975-7] Goal Plan of Care Note [code = 09659-0] Goal Plan of Care Note [code = 29999-6] Goal Plan of Care Note [code = 32937-8] Goal Plan of Care Note [code = 76111-5] Goal Plan of Care Note [code = 50711-5] Goal Plan of Care Note [code = 93603-1] Goal Plan of Care Note [code = 78464-0] Goal Plan of Care Note [code = 07311-6] Goal Plan of Care Note [code = 67087-6] Goal Plan of Care Note [code = 53088-6] Goal Plan of Care Note [code = 94111-5] Goal Plan of Care Note [code = 95817-3] Goal Plan of Care Note [code = 64953-3] Goal Plan of Care Note [code = 39024-9] Goal Plan of Care Note [code = 74263-4] Goal Plan of Care Note [code = 63769-3] Encounters Start Date/Time End Date/Time Encounter Type Admission Type Attending [facility] Care Department Encounter ID Source 2024-05-07 15:45:00 2024-05-07 15:45:00 Outpatient JOSE VENEGAS [id number] [facility] 2024-03-12 09:30:00 2024-03-12 09:30:00 [facility]patient [facility] [id number] [facility]24-03-04 09:20:00 2024-03-04 09:20:00 Outpatient LAB90 [facility]SA [facility]ENNINGS [id number] [facility] 2024-02-27 00:00:00 2024-02-27 00:00:00 Outpatient JULIA MARTINEZ [id number] Mar[facility] 2024-02-19 14:20:00 2024-02-19 14:20:00 [facility] [id number] [facility]-19 13:20:00 2024-02-19 13:20:00 Outpatient CAMILLE BENAVIDES [id number] Marissa [facility] 2024-02-14 13:20:00 2024-02-14 13:20:00 Outpatient CAMILLE BENAVIDES [id number] Marissa [facility] 2024-02-09 00:00:00 2024-02-09 00:00:00 Outpatient JULIA MARTINEZ [id number] Marissa Seybold 2024-02-07 13:00:00 2024-02-07 13:00:00 Outpatient HUNDScarlet JULIA JENNINGS [id number] Marissa Seybold 2024-01-09 00:00:00 2024-01-09 00:00:00 Outpatient MARYSHARON MARISSA JENNINGS [id number] Marissa Seybold 2024-01-07 09:00:00 2024-01-07 09:00:00 Outpatient HUNDScarlet JULIA JENNINGS [id number] Marissa Seybold 2023-12-19 00:00:00 2023-12-19 00:00:00 Outpatient MCIHELLE JULIA JENNINGS [id number] Marissa Seybold 2023-12-14 13:30:00 2023-12-14 13:30:00 Outpatient HUNDScarlet JULIA JENNINGS [id number] Marissa Seybold 2023-12-10 14:30:00 2023-12-10 14:30:00 Outpatient SLOAN, CHACE JENNINGS [id number] Marissa Seybold 2023-12-10 08:30:00 2023-12-10 08:30:00 Outpatient NOEMI SCHOFIELD [id number] Marissa Seybold 2023-12-10 00:00:00 2023-12-10 00:00:00 Outpatient MARYSHARON MARISSA JENNINGS [id number] Marissa Seybold 2023-12-06 13:10:00 2023-12-06 13:10:00 Outpatient SLOAN, CHACE JENNINGS [id number] Marissa Seybold 2023-11-21 00:00:00 2023-11-21 00:00:00 Outpatient HUNDL, JULIA JENNINGS [id number] Marissa Seybold 2023-11-16 15:50:00 2023-11-16 15:50:00 Outpatient LAB90 MARISSA JENNINGS [id number] Marissa Seybold 2023-11-16 15:00:00 2023-11-16 15:00:00 Outpatient SUGEYL, JULIA JENNINGS [id number] Marissa Soto 2023-11-08 14:30:00 2023-11-08 14:30:00 Outpatient SHARON HERNANDEZ [id number] Marissa Soto 2023-05-28 08:16:05 2023-05-28 08:16:05 Outpatient SFA SFA [id number] Chace Zapien 2023-05-15 08:20:47 2023-05-15 08:20:47 Outpatient SFA SFA [id number] Chace Zapien 2022-07-21 00:00:00 2022-07-21 00:00:00 Outpatient Visit [id number] 2022-07-14 00:00:00 2022-07-14 00:00:00 Outpatient Visit [id number] Results Test Description Test Time Test Comments Results Result Co mments Source VITAMIN D, 25 [id number] 00:00:00* Test Item Value Reference Range Interpretation Comme nts VITAMIN D, 25 OH (test code = 4958) 23 NG/ML VITAMIN D, 25 [id number] 00:00:00* Test Item Value Reference Range Interpretation Comme nts VITAMIN D, 25 OH (test code = 4958) 23 NG/ML LIPID [id number] 03:15:18* Test Item Value Reference Range Interpretation Comme nts CHOLESTEROL (test code = 2210) 237 MG/DL <200 H TRIGLYCERIDES (test code = 2232) 178 MG/DL <150 H HDL CHOLESTEROL (test code = 2220) 52 MG/DL >39 CALC LDL CHOL (test code = 2237) 154 MG/DL <100 H NOTE: CALCULATED LDL IS BASED ON MING-ARMSTRONG METHOD WHICHINCLUDES ADJUSTABLE TRIGLYCERIDE:VLDL CHOLESTEROL RATIO.THIS FACTOR VARIES BY MEASURED TRIGLYCERIDE AND NON-HDLCHOLESTEROL CONCENTRATIONS WITH INCREASED CALCULATED LDL SEENIN HIGHER TRIGLYCERIDE OR LOWER NON-HDL SPECIMENS. FOR MOREINFORMATION, SEE CLIENT ANNOUNCEMENT AT [email or web address] RATIO LDL/HDL (test code = 223) 2.96 RATIO <3.22 COMPREHENSIVE METABOLIC [id number] 03:15:18* Test Item Value Reference Range Interpretation Comme nts GLUCOSE (test code = 2216) 87 MG/DL 70-99 BUN (test code = 2207) 20 MG/DL 6-20 CREATININE (test code = 2213) 1.31 MG/DL 0.60-1.30 H eGFR (2020 CKD-EPI) (test code = 68938) 48 ML/MIN/1.73 >60 L CALC BUN/CREAT (test code = 5) 15 RATIO 6-28 SODIUM (test code = 2230) 141 MEQ/L 133-146 POTASSIUM (test code = 2227) 4.4 MEQ/L 3.5-5.4 CHLORIDE (test code = 2214) 103 MEQ/L 95-107 CARBON DIOXIDE (test code = 2205) 22 MEQ/L 19-31 CALCIUM (test code = 2208) 9.6 MG/DL 8.5-10.5 PROTEIN, TOTAL (test code = 2228) 8.0 G/DL 6.1-8.3 ALBUMIN (test code = 2200) 4.4 G/DL 3.5-5.2 CALC GLOBULIN (test code = 2240) 3.6 G/DL 1.9-3.7 CALC A/G RATIO (test code = 2234) 1.2 RATIO 1.0-2.6 BILIRUBIN, TOTAL (test code = 2206) 0.2 MG/DL See_Comment [Automated me ssage] The system which generated this result transmitted reference range: <=1.2. The reference range was not used to interpret this result as normal/abnormal. ALKALINE PHOSPHATASE (test code = 2203) 108 U/L 40-133 AST (test code = 2218) 21 U/L 9-40 ALT (test code = 2219) 29 U/L 5-40 TSH, THIRD [id number] 01:13:31* Test Item Value Reference Range Interpretation Comme nts TSH, THIRD GENERATION (test code = 2821) 0.491 UIU/ML 0.400-4.100 UNLESS OTHERWISE INDICATED, ALL TESTING PERFORMED ATCLINICAL PATHOLOGY [employer] [address] [place] [id number] [employer]TICAL LEAD: MANISH ZUNIGA M.D. CLIA NUMBER [id number] [facility] [place]. [id number] LIPID [id number] 00:00:00* Test Item Value Reference Range Interpretation Comme nts CHOLESTEROL (test code = 2210) 237 MG/DL TRIGLYCERIDES (test code = 2232) 178 MG/DL HDL CHOLESTEROL (test code = 2220) 52 MG/DL CALC LDL CHOL (test code = 2237) 154 MG/DL RISK RATIO LDL/HDL (test cod e = 2238) 2.96 RATIO LIPID [id number] 00:00:00* Test Item Value Reference Range Interpretation Comme nts CHOLESTEROL (test code = 2210) 237 MG/DL TRIGLYCERIDES (test code = 2232) 178 MG/DL HDL CHOLESTEROL (test code = 2220) 52 MG/DL CALC LDL CHOL (test code = 2237) 154 MG/DL RISK RATIO LDL/HDL (test cod e = 2238) 2.96 RATIO COMPREHENSIVE METABOLIC [id number] 00:00:00* Test Item Value Reference Range Interpretation Comme nts GLUCOSE (test code = 2217) 87 MG/DL BUN (test code = 2208) 20 MG/DL CREATININE (test code = 2214) 1.31 MG/DL eGFR (2020 CKD-EPI) (test co de = 87862) 48 ML/MIN/1.73 CALC BUN/CREAT (test code = 2235) 15 RATIO SODIUM (test code = 2231) 141 MEQ/L POTASSIUM (test code = 2228) 4.4 MEQ/L CHLORIDE (test code = 2215) 103 MEQ/L CARBON DIOXIDE (test code = 2206) 22 MEQ/L CALCIUM (test code = 2209) 9.6 MG/DL PROTEIN, TOTAL (test code = 2229) 8.0 G/DL ALBUMIN (test code = 2201) 4.4 G/DL CALC GLOBULIN (test code = 2240) 3.6 G/DL CALC A/G RATIO (test code = 2234) 1.2 RATIO BILIRUBIN, TOTAL (test code = 2207) 0.2 MG/DL ALKALINE PHOSPHATASE (test code = 2204) 108 U/L AST (test code = 2218) 21 U/L ALT (test code = 2219) 29 U/L COMPREHENSIVE METABOLIC [id number] 00:00:00* Test Item Value Reference Range Interpretation Comme nts GLUCOSE (test code = 2217) 87 MG/DL BUN (test code = 2208) 20 MG/DL CREATININE (test code = 2214) 1.31 MG/DL eGFR (2020 CKD-EPI) (test co de = 23794) 48 ML/MIN/1.73 CALC BUN/CREAT (test code = 2235) 15 RATIO SODIUM (test code = 2231) 141 MEQ/L POTASSIUM (test code = 2228) 4.4 MEQ/L CHLORIDE (test code = 2215) 103 MEQ/L CARBON DIOXIDE (test code = 2206) 22 MEQ/L CALCIUM (test code = 2209) 9.6 MG/DL PROTEIN, TOTAL (test code = 2229) 8.0 G/DL ALBUMIN (test code = 2201) 4.4 G/DL CALC GLOBULIN (test code = 2240) 3.6 G/DL CALC A/G RATIO (test code = 2234) 1.2 RATIO BILIRUBIN, TOTAL (test code = 2207) 0.2 MG/DL ALKALINE PHOSPHATASE (test code = 2204) 108 U/L AST (test code = 2218) 21 U/L ALT (test code = 2219) 29 U/L TSH, THIRD [id number] 00:00:00* Test Item Value Reference Range Interpretation Comme nts TSH, THIRD GENERATION (test code = 2821) 0.491 UIU/ML TSH, THIRD [id number] 00:00:00* Test Item Value Reference Range Interpretation Comme nts TSH, THIRD GENERATION (test code = 2821) 0.491 UIU/ML TSH, THIRD [id number] 00:00:00* Test Item Value Reference Range Interpretation Comme nts TSH, THIRD GENERATION (test code = 2821) 0.491 UIU/ML HEMOGLOBIN [id number] 04:27:25* Test Item Value Reference Range Interpretation Comme nts HEMOGLOBIN A1c (test code = 85848) 6.5 % 4.2-5.6 H [employer] GUIDELINES FOR HGB A1C: PREDIABETES/INCREASED RISK . . . . . . . 5.7-6.4% DIAGNOSIS OF DIABETES . . . . . . . . . >=6.5% WITH CONFIRMATION OR APPROPRIATE SYMPTOMS NOTE: ASSAY MAY BE AFFECTED BY HEMOGLOBINOPATHIES (SICKLE CELL ANEMIA, S-C DISEASE, OTHERS) OR ARTIFICIALLY LOWERED BY DECREASED RED CELL SURVIVAL (HEMOLYTIC ANEMIAS, BLOOD LOSS, ETC.). CONSIDER ALTERNATE TESTING OR LABORATORY CONSULTATION. CBC W/AUTO DIFF WITH [id number] 03:58:08* Test Item Value Reference Range Interpretation Comme nts WBC (test code = 1001) 6.5 K/UL 3.5-11.0 RBC (test code = 1002) 4.83 M/UL 3.80-5.40 HEMOGLOBIN (test code = 1003) 13.1 G/DL 11.5-15.5 HEMATOCRIT (test code = 1004) 39.2 % 34.0-45.0 MCV (test code = 1005) 81.2 fL 80.0-99.0 MCH (test code = 1006) 27.1 PG 25.0-33.0 MCHC (test code = 1007) 33.4 G/DL 31.0-36.0 RDW (test code = 1038) 14.9 % 11.5-15.0 NEUTROPHILS (test code = 1008) 49.7 % LYMPHOCYTES (test code = 1010) 40.4 % MONOCYTES (test code = 1011) 7.4 % EOSINOPHILS (test code = 1012) 1.9 % BASOPHILS (test code = 1013) 0.3 % IMMATURE GRANULOCYTES (test code = 1036) 0.3 % NUCLEATED RBCS (test code = 1065) 0.0 /100 WBC'S See_Comment [Automated [employer]] The system which generated this result transmitted reference range: 0.0. The reference range was not used to interpret this result as normal/abnormal. PLATELET COUNT (test code = 1015) 258 K/UL 130-400 ABSOLUTE NEUTROPHILS (test code = 1066) 3.22 K/UL 1.50-7.50 ABSOLUTE LYMPHOCYTES (test code = 1067) 2.62 K/UL 1.00-4.00 ABSOLUTE MONOCYTES (test code = 1068) 0.48 K/UL 0.20-1.00 ABSOLUTE EOSINOPHILS (test code = 1040) 0.12 K/UL 0.00-0.50 ABSOLUTE BASOPHILS (test code = 1069) 0.02 K/UL 0.00-0.20 ABS IMMATURE GRANULOCYTES (test code = 1020) 0.02 K/UL 0.00-0.10 ABS NUCLEATED RBCS (test code = 51156) 0.02 K/UL 0.00-0.11 HEMOGLOBIN [id number] 00:00:00* Test Item Value Reference Range Interpretation Comme nts HEMOGLOBIN A1c (test code = 54845) 6.5 % HEMOGLOBIN [id number] 00:00:00* Test Item Value Reference Range Interpretation Comme nts HEMOGLOBIN A1c (test code = 99371) 6.5 % HEMOGLOBIN [id number] 00:00:00* Test Item Value Reference Range Interpretation Comme nts HEMOGLOBIN A1c (test code = 43610) 6.5 % CBC W/AUTO [id number] 00:00:00* Test Item Value Reference Range Interpretation Comme nts WBC (test code = 1001) 6.5 K/UL [...] = 1013) 0.3 % IMMATURE GRANULOCYTES (test code = 1036) 0.3 % NUCLEATED RBCS (test code = 1065) 0.0 /100WBC'S PLATELET COUNT (test code = 1015) 258 K/UL ABSOLUTE NEUTROPHILS (test c ode = 1066) 3.22 K/UL ABSOLUTE LYMPHOCYTES (test c ode = 1067) 2.62 K/UL ABSOLUTE MONOCYTES (test cod e = 1068) 0.48 K/UL ABSOLUTE EOSINOPHILS (test c ode = 1040) 0.12 K/UL ABSOLUTE BASOPHILS (test cod e = 1069) 0.02 K/UL ABS IMMATURE GRANULOCYTES (t est code = 1020) 0.02 K/UL ABS NUCLEATED RBCS (test cod e = 59266) 0.02 K/UL CBC W/AUTO [id number] 00:00:00* Test Item Value Reference Range Interpretation Comme nts WBC (test code = 1001) 6.5 K/UL [...] = 1013) 0.3 % IMMATURE GRANULOCYTES (test code = 1036) 0.3 % NUCLEATED RBCS (test code = 1065) 0.0 /100WBC'S PLATELET COUNT (test code = 1015) 258 K/UL ABSOLUTE NEUTROPHILS (test c ode = 1066) 3.22 K/UL ABSOLUTE LYMPHOCYTES (test c ode = 1067) 2.62 K/UL ABSOLUTE MONOCYTES (test cod e = 1068) 0.48 K/UL ABSOLUTE EOSINOPHILS (test c ode = 1040) 0.12 K/UL ABSOLUTE BASOPHILS (test cod e = 1069) 0.02 K/UL ABS IMMATURE GRANULOCYTES (t est code = 1020) 0.02 K/UL ABS NUCLEATED RBCS (test cod e = 02952) 0.02 K/UL CBC W/AUTO [id number] 00:00:00* Test Item Value Reference Range Interpretation Comme nts WBC (test code = 1001) 6.5 K/UL [...] = 1013) 0.3 % IMMATURE GRANULOCYTES (test code = 1036) 0.3 % NUCLEATED RBCS (test code = 1065) 0.0 /100WBC'S PLATELET COUNT (test code = 1015) 258 K/UL ABSOLUTE NEUTROPHILS (test c ode = 1066) 3.22 K/UL ABSOLUTE LYMPHOCYTES (test c ode = 1067) 2.62 K/UL ABSOLUTE MONOCYTES (test cod e = 1068) 0.48 K/UL ABSOLUTE EOSINOPHILS (test c ode = 1040) 0.12 K/UL ABSOLUTE BASOPHILS (test cod e = 1069) 0.02 K/UL ABS IMMATURE GRANULOCYTES (t est code = 1020) 0.02 K/UL ABS NUCLEATED RBCS (test cod e = 95807) 0.02 K/UL H. PYLORI (BREATH)2022-06-22 13:31:28* Test Item Value Reference Range Interpretation Comme nts H. PYLORI (BREATH) (test code = 38452) NEGATIVE NEGATIVE UNLESS OTHER GARCIA INDICATED, ALL TESTING PERFORMED [facility] [address] [place] [address] STARS ANALYTICAL LEAD: MANISH ZUNIGA M.D. IA NUMBER [id number] [facility]. [id number] H. PYLORI (BREATH) [ADDED]2022-06-22 00:00:00* Test Item Value Reference Range Interpretation Comme nts H. PYLORI (BREATH) (test cod e = 58678) NEGATIVE H. PYLORI (BREATH) [ADDED]2022-06-22 00:00:00* Test Item Value Reference Range Interpretation Comme nts H. PYLORI (BREATH) (test cod e = 02075) NEGATIVE H. PYLORI (BREATH) [ADDED]2022-06-22 00:00:00* Test Item Value Reference Range Interpretation Comme nts H. PYLORI (BREATH) (test cod e = 87901) NEGATIVE H. PYLORI (BREATH) [ADDED]2022-06-22 00:00:00* Test Item Value Reference Range Interpretation Comme nts H. PYLORI (BREATH) (test cod e = 19458) NEGATIVE COMPREHENSIVE METABOLIC [id number] 05:16:24* Test Item Value Reference Range Interpretation Comme nts GLUCOSE (test code = 2216) 90 MG/DL 70-99 BUN (test code = 2207) 15 MG/DL 6-20 CREATININE (test code = 2214) 1.13 MG/DL 0.60-1.30 eGFR (2020 CKD-EPI) (test code = 77997) 57 ML/MIN/1.73 >60 L CALC BUN/CREAT (test code = 2235) 13 RATIO 6-28 SODIUM (test code = 223) 143 MEQ/L 133-146 POTASSIUM (test code = 2228) 4.4 MEQ/L 3.5-5.4 CHLORIDE (test code = 2215) 106 MEQ/L 95-107 CARBON DIOXIDE (test code = 2206) 26 MEQ/L 19-31 CALCIUM (test code = 220) 10.3 MG/DL 8.5-10.5 PROTEIN, TOTAL (test code = 2228) 7.8 G/DL 6.1-8.3 ALBUMIN (test code = 2200) 4.6 G/DL 3.5-5.2 CALC GLOBULIN (test code = 2240) 3.2 G/DL 1.9-3.7 CALC A/G RATIO (test code = 2233) 1.4 RATIO 1.0-2.6 BILIRUBIN, TOTAL (test code = 2206) <0.2 MG/DL See_Comment [Automated me ssage] The system which generated this result transmitted reference range: <=1.2. The reference range was not used to interpret this result as normal/abnormal. ALKALINE PHOSPHATASE (test code = 2203) 105 U/L 40-133 AST (test code = 2218) 21 U/L 9-40 ALT (test code = 2219) 31 U/L 5-40 UNLESS OTHERWISE INDICATED, ALL TESTING PERFORMED [facility] 00 [facility] [address] STARS ANALYTICAL LEAD: MANISH ZUNIGA M.D. CLIA NUMBER [id number] [facility]. [id number] COMPREHENSIVE METABOLIC [id number] 00:00:00* Test Item Value Reference Range Interpretation Comme nts GLUCOSE (test code = 2216) 90 MG/DL BUN (test code = 8) 15 MG/DL CREATININE (test code = 2214) 1.13 MG/DL eGFR (2020 CKD-EPI) (test co de = 46409) 57 ML/MIN/1.73 CALC BUN/CREAT (test code = 2235) 13 RATIO SODIUM (test code = 2231) 143 MEQ/L POTASSIUM (test code = 2228) 4.4 MEQ/L CHLORIDE (test code = 2215) 106 MEQ/L CARBON DIOXIDE (test code = 2206) 26 MEQ/L CALCIUM (test code = 2209) 10.3 MG/DL PROTEIN, TOTAL (test code = 2229) 7.8 G/DL ALBUMIN (test code = 2201) 4.6 G/DL CALC GLOBULIN (test code = 2240) 3.2 G/DL CALC A/G RATIO (test code = 2234) 1.4 RATIO BILIRUBIN, TOTAL (test code = 2207) <0.2 MG/DL ALKALINE PHOSPHATASE (test code = 2204) 105 U/L AST (test code = 2218) 21 U/L ALT (test code = 2219) 31 U/L COMPREHENSIVE METABOLIC [id number] 00:00:00* Test Item Value Reference Range Interpretation Comme nts GLUCOSE (test code = 2217) 90 MG/DL BUN (test code = 2208) 15 MG/DL CREATININE (test code = 2214) 1.13 MG/DL eGFR (2020 CKD-EPI) (test co de = 60555) 57 ML/MIN/1.73 CALC BUN/CREAT (test code = 2235) 13 RATIO SODIUM (test code = 2231) 143 MEQ/L POTASSIUM (test code = 2228) 4.4 MEQ/L CHLORIDE (test code = 2215) 106 MEQ/L CARBON DIOXIDE (test code = 2206) 26 MEQ/L CALCIUM (test code = 2209) 10.3 MG/DL PROTEIN, TOTAL (test code = 2229) 7.8 G/DL ALBUMIN (test code = 2201) 4.6 G/DL CALC GLOBULIN (test code = 2240) 3.2 G/DL CALC A/G RATIO (test code = 2234) 1.4 RATIO BILIRUBIN, TOTAL (test code = 2207) <0.2 MG/DL ALKALINE PHOSPHATASE (test code = 2204) 105 U/L AST (test code = 2218) 21 U/L ALT (test code = 2219) 31 U/L COMPREHENSIVE METABOLIC [id number] 00:00:00* Test Item Value Reference Range Interpretation Comme nts GLUCOSE (test code = 2217) 90 MG/DL BUN (test code = 2208) 15 MG/DL CREATININE (test code = 2214) 1.13 MG/DL eGFR (2020 CKD-EPI) (test co de = 89049) 57 ML/MIN/1.73 CALC BUN/CREAT (test code = 2235) 13 RATIO SODIUM (test code = 2231) 143 MEQ/L POTASSIUM (test code = 2228) 4.4 MEQ/L CHLORIDE (test code = 2215) 106 MEQ/L CARBON DIOXIDE (test code = 2206) 26 MEQ/L CALCIUM (test code = 2209) 10.3 MG/DL PROTEIN, TOTAL (test code = 2229) 7.8 G/DL ALBUMIN (test code = 2201) 4.6 G/DL CALC GLOBULIN (test code = 2240) 3.2 G/DL CALC A/G RATIO (test code = 2234) 1.4 RATIO BILIRUBIN, TOTAL (test code = 2207) <0.2 MG/DL ALKALINE PHOSPHATASE (test code = 2204) 105 U/L AST (test code = 2218) 21 U/L ALT (test code = 2219) 31 U/L COMPREHENSIVE METABOLIC [id number] 00:00:00* Test Item Value Reference Range Interpretation Comme nts GLUCOSE (test code = 2217) 90 MG/DL BUN (test code = 2208) 15 MG/DL CREATININE (test code = 2214) 1.13 MG/DL eGFR (2020 CKD-EPI) (test co de = 57512) 57 ML/MIN/1.73 CALC BUN/CREAT (test code = 2235) 13 RATIO SODIUM (test code = 2231) 143 MEQ/L POTASSIUM (test code = 2228) 4.4 MEQ/L CHLORIDE (test code = 2215) 106 MEQ/L CARBON DIOXIDE (test code = 2206) 26 MEQ/L CALCIUM (test code = 2209) 10.3 MG/DL PROTEIN, TOTAL (test code = 2229) 7.8 G/DL ALBUMIN (test code = 2201) 4.6 G/DL CALC GLOBULIN (test code = 2240) 3.2 G/DL CALC A/G RATIO (test code = 2234) 1.4 RATIO BILIRUBIN, TOTAL (test code = 2207) <0.2 MG/DL ALKALINE PHOSPHATASE (test code = 2204) 105 U/L AST (test code = 2218) 21 U/L ALT (test code = 2219) 31 U/L TSH, THIRD [id number] 06:26:56* Test Item Value Reference Range Interpretation Comme [facility] TSH, THIRD GENERATION (test code = 2821) 0.894 UIU/ML 0.400-4.100 UNLESS OTHERWISE INDICATED, ALL TESTING PERFORMED [facility] [employer] [employer] [address] [place] [address] STARS ANALYTICAL LEAD: MANISH ZUNIGA M.D. IA NUMBER [id number] [facility]. [id number] VITAMIN D, 25 [id number] 05:55:42* Test Item Value Reference Range Interpretation Comme [facility] VITAMIN D, 25 OH (test code = 4958) 15 NG/ML SEE BELOW L NOTE: 25-HYDR OXYVITAMIN D ASSAY INCLUDES 25-HYDROXYVITAMIN D2 AND D3. METHODOLOGY IS CHEMILUMINESCENT IMMUNOASSAY. INTERPRETIVE RANGES PEDIATRIC (<17 YEARS) . . . . . . . . . . . NG/ML 20-100ADULT: INSUFFICIENT . . . . . . . . . . . . . . NG/ML <20 SUBOPTIMAL . . . . . . . . . . . . . . . NG/ML 20-29 OPTIMAL . . . . . . . . . . . . . . . . . NG/ML 30-100 HEMOGLOBIN [id number] 04:11:26* Test Item Value Reference Range Interpretation Comme [facility] HEMOGLOBIN A1c (test code = 47851) 6.8 % 4.2-5.6 H [employer] GUIDELINES FOR HGB A1C: PREDIABETES/INCREASED RISK . . . . . . . 5.7-6.4% DIAGNOSIS OF DIABETES . . . . . . . . . >=6.5% WITH CONFIRMATION OR APPROPRIATE SYMPTOMS NOTE: ASSAY MAY BE AFFECTED BY HEMOGLOBINOPATHIES (SICKLE CELL ANEMIA, S-C DISEASE, OTHERS) OR ARTIFICIALLY LOWERED BY DECREASED RED CELL SURVIVAL (HEMOLYTIC ANEMIAS, BLOOD LOSS, ETC.). CONSIDER ALTERNATE TESTING OR LABORATORY CONSULTATION. COMPREHENSIVE METABOLIC [id number] 03:24:51* Test Item Value Reference Range Interpretation Comme nts GLUCOSE (test code = 2216) 110 MG/DL 70-99 H BUN (test code = 2207) 11 MG/DL 6-20 CREATININE (test code = 2213) 1.01 MG/DL 0.60-1.30 eGFR (2020 CKD-EPI) (test code = 38370) 66 ML/MIN/1.73 >60 CALC BUN/CREAT (test code = 2234) 11 RATIO 6-28 SODIUM (test code = 2230) 144 MEQ/L 133-146 POTASSIUM (test code = 2227) 4.2 MEQ/L 3.5-5.4 CHLORIDE (test code = 2214) 108 MEQ/L 95-107 H CARBON DIOXIDE (test code = 2205) 24 MEQ/L 19-31 CALCIUM (test code = 2208) 9.6 MG/DL 8.5-10.5 PROTEIN, TOTAL (test code = 2228) 7.6 G/DL 6.1-8.3 ALBUMIN (test code = 2200) 4.3 G/DL 3.5-5.2 CALC GLOBULIN (test code = 2239) 3.3 G/DL 1.9-3.7 CALC A/G RATIO (test code = 2233) 1.3 RATIO 1.0-2.6 BILIRUBIN, TOTAL (test code = 2206) 0.3 MG/DL See_Comment [Automated me ssage] The system which generated this result transmitted reference range: <=1.2. The reference range was not used to interpret this result as normal/abnormal. ALKALINE PHOSPHATASE (test code = 2203) 100 U/L 40-133 AST (test code = 2217) 17 U/L 9-40 ALT (test code = 2219) 22 U/L 5-40 LIPID [id number] 03:24:51* Test Item Value Reference Range Interpretation Comme nts CHOLESTEROL (test code = 2210) 197 MG/DL <200 TRIGLYCERIDES (test code = 2232) 128 MG/DL <150 HDL CHOLESTEROL (test code = 2220) 43 MG/DL >39 CALC LDL CHOL (test code = 223) 130 MG/DL <100 H NOTE: CALCULATED LDL IS BASED ON MING-ARMSTRONG METHOD WHICHINCLUDES ADJUSTABLE TRIGLYCERIDE:VLDL CHOLESTEROL RATIO.THIS FACTOR VARIES BY MEASURED TRIGLYCERIDE AND NON-HDLCHOLESTEROL CONCENTRATIONS WITH INCREASED CALCULATED LDL SEENIN HIGHER TRIGLYCERIDE OR LOWER NON-HDL SPECIMENS. FOR MOREINFORMATION, SEE CLIENT ANNOUNCEMENT AT [email or web address] [email or web address] RATIO LDL/HDL (test code = 2238) 3.02 RATIO <3.22 CBC W/AUTO DIFF WITH [id number] 02:34:04* Test Item Value Reference Range Interpretation Comme nts WBC (test code = 1001) 5.2 K/UL 3.5-11.0 RBC (test code = 1002) 4.38 M/UL 3.80-5.40 HEMOGLOBIN (test code = 1003) 12.2 G/DL 11.5-15.5 HEMATOCRIT (test code = 1004) 35.8 % 34.0-45.0 MCV (test code = 1005) 81.7 fL 80.0-99.0 MCH (test code = 1006) 27.9 PG 25.0-33.0 MCHC (test code = 1007) 34.1 G/DL 31.0-36.0 RDW (test code = 1038) 14.1 % 11.5-15.0 NEUTROPHILS (test code = 1008) 46.9 % LYMPHOCYTES (test code = 1010) 41.5 % MONOCYTES (test code = 1011) 8.3 % EOSINOPHILS (test code = 1012) 2.5 % BASOPHILS (test code = 1013) 0.6 % IMMATURE GRANULOCYTES (test code = 1036) 0.2 % NUCLEATED RBCS (test code = 1065) 0.0 /100 WBC'S See_Comment [Automated [employer]] The system which generated this result transmitted reference range: 0.0. The reference range was not used to interpret this result as normal/abnormal. PLATELET COUNT (test code = 1015) 239 K/UL 130-400 ABSOLUTE NEUTROPHILS (test code = 1066) 2.45 K/UL 1.50-7.50 ABSOLUTE LYMPHOCYTES (test code = 1067) 2.16 K/UL 1.00-4.00 ABSOLUTE MONOCYTES (test code = 1068) 0.43 K/UL 0.20-1.00 ABSOLUTE EOSINOPHILS (test code = 1040) 0.13 K/UL 0.00-0.50 ABSOLUTE BASOPHILS (test code = 1069) 0.03 K/UL 0.00-0.20 ABS IMMATURE GRANULOCYTES (test code = 1020) 0.01 K/UL 0.00-0.10 ABS NUCLEATED RBCS (test code = 12050) 0.00 K/UL 0.00-0.11 COMPREHENSIVE METABOLIC [id number] 00:00:00* Test Item Value Reference Range Interpretation Comme nts GLUCOSE (test code = 2217) 110 MG/DL BUN (test code = 2208) 11 MG/DL CREATININE (test code = 2214) 1.01 MG/DL eGFR (2020 CKD-EPI) (test co de = 77168) 66 ML/MIN/1.73 CALC BUN/CREAT (test code = 2235) 11 RATIO SODIUM (test code = 2231) 144 MEQ/L POTASSIUM (test code = 2228) 4.2 MEQ/L CHLORIDE (test code = 2215) 108 MEQ/L CARBON DIOXIDE (test code = 2206) 24 MEQ/L CALCIUM (test code = 2209) 9.6 MG/DL PROTEIN, TOTAL (test code = 2229) 7.6 G/DL ALBUMIN (test code = 2201) 4.3 G/DL CALC GLOBULIN (test code = 2240) 3.3 G/DL CALC A/G RATIO (test code = 2234) 1.3 RATIO BILIRUBIN, TOTAL (test code = 2207) 0.3 MG/DL ALKALINE PHOSPHATASE (test code = 2204) 100 U/L AST (test code = 2218) 17 U/L ALT (test code = 2219) 22 U/L COMPREHENSIVE METABOLIC [id number] 00:00:00* Test Item Value Reference Range Interpretation Comme nts GLUCOSE (test code = 2217) 110 MG/DL BUN (test code = 2208) 11 MG/DL CREATININE (test code = 2214) 1.01 MG/DL eGFR (2020 CKD-EPI) (test co de = 28536) 66 ML/MIN/1.73 CALC BUN/CREAT (test code = 2235) 11 RATIO SODIUM (test code = 2231) 144 MEQ/L POTASSIUM (test code = 2228) 4.2 MEQ/L CHLORIDE (test code = 2215) 108 MEQ/L CARBON DIOXIDE (test code = 2206) 24 MEQ/L CALCIUM (test code = 2209) 9.6 MG/DL PROTEIN, TOTAL (test code = 2229) 7.6 G/DL ALBUMIN (test code = 2201) 4.3 G/DL CALC GLOBULIN (test code = 2240) 3.3 G/DL CALC A/G RATIO (test code = 2234) 1.3 RATIO BILIRUBIN, TOTAL (test code = 2207) 0.3 MG/DL ALKALINE PHOSPHATASE (test code = 2204) 100 U/L AST (test code = 2218) 17 U/L ALT (test code = 2219) 22 U/L CBC W/AUTO [id number] 00:00:00* Test Item Value Reference Range Interpretation Comme nts WBC (test code = 1001) 5.2 K/UL [...] = 1013) 0.6 % IMMATURE GRANULOCYTES (test code = 1036) 0.2 % NUCLEATED RBCS (test code = 1065) 0.0 /100WBC'S PLATELET COUNT (test code = 1015) 239 K/UL ABSOLUTE NEUTROPHILS (test c ode = 1066) 2.45 K/UL ABSOLUTE LYMPHOCYTES (test c ode = 1067) 2.16 K/UL ABSOLUTE MONOCYTES (test cod e = 1068) 0.43 K/UL ABSOLUTE EOSINOPHILS (test c ode = 1040) 0.13 K/UL ABSOLUTE BASOPHILS (test cod e = 1069) 0.03 K/UL ABS IMMATURE GRANULOCYTES (t est code = 1020) 0.01 K/UL ABS NUCLEATED RBCS (test cod e = 88433) 0.00 K/UL CBC W/AUTO [id number] 00:00:00* Test Item Value Reference Range Interpretation Comme nts WBC (test code = 1001) 5.2 K/UL [...] = 1013) 0.6 % IMMATURE GRANULOCYTES (test code = 1036) 0.2 % NUCLEATED RBCS (test code = 1065) 0.0 /100WBC'S PLATELET COUNT (test code = 1015) 239 K/UL ABSOLUTE NEUTROPHILS (test c ode = 1066) 2.45 K/UL ABSOLUTE LYMPHOCYTES (test c ode = 1067) 2.16 K/UL ABSOLUTE MONOCYTES (test cod e = 1068) 0.43 K/UL ABSOLUTE EOSINOPHILS (test c ode = 1040) 0.13 K/UL ABSOLUTE BASOPHILS (test cod e = 1069) 0.03 K/UL ABS IMMATURE GRANULOCYTES (t est code = 1020) 0.01 K/UL ABS NUCLEATED RBCS (test cod e = 26921) 0.00 K/UL CBC W/AUTO [id number] 00:00:00* Test Item Value Reference Range Interpretation Comme nts WBC (test code = 1001) 5.2 K/UL [...] = 1013) 0.6 % IMMATURE GRANULOCYTES (test code = 1036) 0.2 % NUCLEATED RBCS (test code = 1065) 0.0 /100WBC'S PLATELET COUNT (test code = 1015) 239 K/UL ABSOLUTE NEUTROPHILS (test c ode = 1066) 2.45 K/UL ABSOLUTE LYMPHOCYTES (test c ode = 1067) 2.16 K/UL ABSOLUTE MONOCYTES (test cod e = 1068) 0.43 K/UL ABSOLUTE EOSINOPHILS (test c ode = 1040) 0.13 K/UL ABSOLUTE BASOPHILS (test cod e = 1069) 0.03 K/UL ABS IMMATURE GRANULOCYTES (t est code = 1020) 0.01 K/UL ABS NUCLEATED RBCS (test cod e = 68194) 0.00 K/UL LIPID [id number] 00:00:00* Test Item Value Reference Range Interpretation Comme nts CHOLESTEROL (test code = 2210) 197 MG/DL TRIGLYCERIDES (test code = 2232) 128 MG/DL HDL CHOLESTEROL (test code = 2220) 43 MG/DL CALC LDL CHOL (test code = 2237) 130 MG/DL RISK RATIO LDL/HDL (test cod e = 2238) 3.02 RATIO LIPID [id number] 00:00:00* Test Item Value Reference Range Interpretation Comme nts CHOLESTEROL (test code = 2210) 197 MG/DL TRIGLYCERIDES (test code = 2232) 128 MG/DL HDL CHOLESTEROL (test code = 2220) 43 MG/DL CALC LDL CHOL (test code = 2237) 130 MG/DL RISK RATIO LDL/HDL (test cod e = 2238) 3.02 RATIO HEMOGLOBIN [id number] 00:00:00* Test Item Value Reference Range Interpretation Comme nts HEMOGLOBIN A1c (test code = 46465) 6.8 % HEMOGLOBIN [id number] 00:00:00* Test Item Value Reference Range Interpretation Comme nts HEMOGLOBIN A1c (test code = 56258) 6.8 % HEMOGLOBIN [id number] 00:00:00* Test Item Value Reference Range Interpretation Comme nts HEMOGLOBIN A1c (test code = 84574) 6.8 % VITAMIN D, 25 [id number] 00:00:00* Test Item Value Reference Range Interpretation Comme nts VITAMIN D, 25 OH (test code = 4958) 15 NG/ML VITAMIN D, 25 [id number] 00:00:00* Test Item Value Reference Range Interpretation Comme nts VITAMIN D, 25 OH (test code = 4958) 15 NG/ML [id number] 00:00:00* Test Item Value Reference Range Interpretation Comme nts TSH, THIRD GENERATION (test code = 2821) 0.894 UIU/ML [id number] 00:00:00* Test Item Value Reference Range Interpretation Comme nts TSH, THIRD GENERATION (test code = 2821) 0.894 UIU/ML [id number] 00:00:00* Test Item Value Reference Range Interpretation Comme nts TSH, THIRD GENERATION (test code = 2821) 0.894 UIU/ML COMPREHENSIVE METABOLIC [id number] 00:00:00* Test Item Value Reference Range Interpretation Comme nts GLUCOSE (test code = 2217) 110 MG/DL BUN (test code = 2208) 11 MG/DL CREATININE (test code = 2214) 1.01 MG/DL eGFR (2020 CKD-EPI) (test co de = 14515) 66 ML/MIN/1.73 CALC BUN/CREAT (test code = 2235) 11 RATIO SODIUM (test code = 2231) 144 MEQ/L POTASSIUM (test code = 2228) 4.2 MEQ/L CHLORIDE (test code = 2215) 108 MEQ/L CARBON DIOXIDE (test code = 2206) 24 MEQ/L CALCIUM (test code = 2209) 9.6 MG/DL PROTEIN, TOTAL (test code = 2229) 7.6 G/DL ALBUMIN (test code = 2201) 4.3 G/DL CALC GLOBULIN (test code = 2240) 3.3 G/DL CALC A/G RATIO (test code = 2234) 1.3 RATIO BILIRUBIN, TOTAL (test code = 2207) 0.3 MG/DL ALKALINE PHOSPHATASE (test code = 2204) 100 U/L AST (test code = 2218) 17 U/L ALT (test code = 2219) 22 U/L COMPREHENSIVE METABOLIC [id number] 00:00:00* Test Item Value Reference Range Interpretation Comme nts GLUCOSE (test code = 2217) 110 MG/DL BUN (test code = 2208) 11 MG/DL CREATININE (test code = 2214) 1.01 MG/DL eGFR (2020 CKD-EPI) (test co de = 52075) 66 ML/MIN/1.73 CALC BUN/CREAT (test code = 2235) 11 RATIO SODIUM (test code = 2231) 144 MEQ/L POTASSIUM (test code = 2228) 4.2 MEQ/L CHLORIDE (test code = 2215) 108 MEQ/L CARBON DIOXIDE (test code = 2206) 24 MEQ/L CALCIUM (test code = 2209) 9.6 MG/DL PROTEIN, TOTAL (test code = 2229) 7.6 G/DL ALBUMIN (test code = 2201) 4.3 G/DL CALC GLOBULIN (test code = 2240) 3.3 G/DL CALC A/G RATIO (test code = 2234) 1.3 RATIO BILIRUBIN, TOTAL (test code = 2207) 0.3 MG/DL ALKALINE PHOSPHATASE (test code = 2204) 100 U/L AST (test code = 2218) 17 U/L ALT (test code = 2219) 22 U/L CBC W/AUTO [id number] 00:00:00* Test Item Value Reference Range Interpretation Comme nts WBC (test code = 1001) 5.2 K/UL [...] = 1013) 0.6 % IMMATURE GRANULOCYTES (test code = 1036) 0.2 % NUCLEATED RBCS (test code = 1065) 0.0 /100WBC'S PLATELET COUNT (test code = 1015) 239 K/UL ABSOLUTE NEUTROPHILS (test c ode = 1066) 2.45 K/UL ABSOLUTE LYMPHOCYTES (test c ode = 1067) 2.16 K/UL ABSOLUTE MONOCYTES (test cod e = 1068) 0.43 K/UL ABSOLUTE EOSINOPHILS (test c ode = 1040) 0.13 K/UL ABSOLUTE BASOPHILS (test cod e = 1069) 0.03 K/UL ABS IMMATURE GRANULOCYTES (t est code = 1020) 0.01 K/UL ABS NUCLEATED RBCS (test cod e = 48261) 0.00 K/UL CBC W/AUTO [id number] 00:00:00* Test Item Value Reference Range Interpretation Comme nts WBC (test code = 1001) 5.2 K/UL [...] = 1013) 0.6 % IMMATURE GRANULOCYTES (test code = 1036) 0.2 % NUCLEATED RBCS (test code = 1065) 0.0 /100WBC'S PLATELET COUNT (test code = 1015) 239 K/UL ABSOLUTE NEUTROPHILS (test c ode = 1066) 2.45 K/UL ABSOLUTE LYMPHOCYTES (test c ode = 1067) 2.16 K/UL ABSOLUTE MONOCYTES (test cod e = 1068) 0.43 K/UL ABSOLUTE EOSINOPHILS (test c ode = 1040) 0.13 K/UL ABSOLUTE BASOPHILS (test cod e = 1069) 0.03 K/UL ABS IMMATURE GRANULOCYTES (t est code = 1020) 0.01 K/UL ABS NUCLEATED RBCS (test cod e = 57976) 0.00 K/UL CBC W/AUTO [id number] 00:00:00* Test Item Value Reference Range Interpretation Comme nts WBC (test code = 1001) 5.2 K/UL [...] = 1013) 0.6 % IMMATURE GRANULOCYTES (test code = 1036) 0.2 % NUCLEATED RBCS (test code = 1065) 0.0 /100WBC'S PLATELET COUNT (test code = 1015) 239 K/UL ABSOLUTE NEUTROPHILS (test c ode = 1066) 2.45 K/UL ABSOLUTE LYMPHOCYTES (test c ode = 1067) 2.16 K/UL ABSOLUTE MONOCYTES (test cod e = 1068) 0.43 K/UL ABSOLUTE EOSINOPHILS (test c ode = 1040) 0.13 K/UL ABSOLUTE BASOPHILS (test cod e = 1069) 0.03 K/UL ABS IMMATURE GRANULOCYTES (t est code = 1020) 0.01 K/UL ABS NUCLEATED RBCS (test cod e = 81816) 0.00 K/UL LIPID [id number] 00:00:00* Test Item Value Reference Range Interpretation Comme nts CHOLESTEROL (test code = 2210) 197 MG/DL TRIGLYCERIDES (test code = 2232) 128 MG/DL HDL CHOLESTEROL (test code = 2220) 43 MG/DL CALC LDL CHOL (test code = 2237) 130 MG/DL RISK RATIO LDL/HDL (test cod e = 2238) 3.02 RATIO LIPID [id number] 00:00:00* Test Item Value Reference Range Interpretation Comme nts CHOLESTEROL (test code = 2210) 197 MG/DL TRIGLYCERIDES (test code = 2232) 128 MG/DL HDL CHOLESTEROL (test code = 2220) 43 MG/DL CALC LDL CHOL (test code = 2237) 130 MG/DL RISK RATIO LDL/HDL (test cod e = 2238) 3.02 RATIO HEMOGLOBIN [id number] 00:00:00* Test Item Value Reference Range Interpretation Comme nts HEMOGLOBIN A1c (test code = 59795) 6.8 % HEMOGLOBIN [id number] 00:00:00* Test Item Value Reference Range Interpretation Comme nts HEMOGLOBIN A1c (test code = 08947) 6.8 % HEMOGLOBIN [id number] 00:00:00* Test Item Value Reference Range Interpretation Comme nts HEMOGLOBIN A1c (test code = 85525) 6.8 % VITAMIN D, 25 [id number] 00:00:00* Test Item Value Reference Range Interpretation Comme nts VITAMIN D, 25 OH (test code = 4958) 15 NG/ML VITAMIN D, 25 [id number] 00:00:00* Test Item Value Reference Range Interpretation Comme nts VITAMIN D, 25 OH (test code = 4958) 15 NG/ML [id number] 00:00:00* Test Item Value Reference Range Interpretation Comme nts TSH, THIRD GENERATION (test code = 2821) 0.894 UIU/ML [id number] 00:00:00* Test Item Value Reference Range Interpretation Comme nts TSH, THIRD GENERATION (test code = 2821) 0.894 UIU/ML [id number] 00:00:00* Test Item Value Reference Range Interpretation Comme nts TSH, THIRD GENERATION (test code = 2821) 0.894 UIU/ML Notes Date/Time Note Provider Source 2024-02-07 13:12:23 6HQ55IzFvB/vAiZLbPQo YDdmgcElPKZuvwKXK ae/QlxvvTLvO0eiY1DEJXZN2ifI7315-44-60 T13:12:23 Chief ComplaintPatient presents withFollow-upFour week follow up for DiabetesPaDemar Mckennaectronically signed by Fabiola Mejía LVN at 02/07/2024 1:14 PM [id number] JdxzPV1519-51-99L78:14:28Nurse NoteTXT1.2.840.449709.1.13.131.2.7.2. 895775|[id number] for patient jmfp86439-6Oukkz NoteLNNARRATIVEFormatted C-CDA narrative [id number] 1393-62-17G55:14:281.2.840.431011.1.7 2.3.15|1.2.840.157622.1.13.131.2.7.2. [id number] [facility] 2024-01-07 09:12:00 Y6dk4ccVHcolwKavXIlP 3yJyPK7dvXFGS+2mm 2mgi5O5aWpzmNr7akaDldaRJ0Vv3643-22-28 T09:12:00 Chief ComplaintPatient presents withREFILLS-NURSE/MDRefill TrulicityDiabetesDiabetic [place] [address]-8Cdxiu YqrqXT9870-09-61S55:12:24Nurse NoteTXT1.2.840.445066.1.13.131.2.7.2. 614508|[id number] for patient ovdf46541-9Udtdr NoteLNNARRATIVEFormatted C-CDA narrative textMilwaukee County [facility]– [place] [facility].[id number] 4664-37-33D83:12:241.2.840.468135.1.7 2.3.15|1.2.840.357224.1.13.131.2.7.2. [id number] [facility] 2023-12-14 13:18:47 U8eXm8wQcMvcjwb3QbUB TtQtODy1CIycpiQYC JK9Y7no71mSfjpNi2d5rhiY0Kmp3244-36-27 T13:18:47 Chief ComplaintPatient presents withDiabetesDiabetic follow upDry SkinDry skin on the bottom of both feet. [place] [address]-9Fvxho ArmjZE5708-48-83X23:19:19Nurse NoteTXT1.2.840.591401.1.13.131.2.7.2. 107856|[id number] for patient bgwi33462-9Pngwp NoteLNNARRATIVEFormatted C-CDA narrative text[address][id number] 3959-46-80Z19:19:191.2.840.021042.1.7 2.3.15|1.2.840.883943.1.13.131.2.7.2. [id number] [facility] 2023-12-10 08:34:26 83SuWPe2omilww4D3sdS 9m1a6ZeM7Zv5v7pAW 7TkG53PjeYigk+U89kZMkvtIDdx8315-93-39 T08:34:26 Chief ComplaintPatient presents withCoughDry cough for 1 [place] [address]-4Juhjt SwkfLE1772-38-34Z79:34:42Nurse NoteTXT1.2.840.156849.1.13.131.2.7.2. 712626|[id number] for patient mlpl77354-7Yepru NoteLNNARRATIVEFormatted C-CDA narrative text[id number] 9155-14-44I07:34:421.2.840.754479.1.7 2.3.15|1.2.840.714504.1.13.131.2.7.2. 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 567501|[id number] for patient qbgg54287-0Fnmgy NoteLNNARRATIVEFormatted C-CDA narrative [facility] [facility].[id number] 8552-84-96N23:00:401.2.840.463568.1.7 2.3.15|1.2.840.829511.1.13.131.2.7.2. [id number] [facility] 2023-11-16 15:04:07 2AIORpKjOLrmZDzy65Zk zsRyUPCH4QZe5VpbT XhpQtU96tQBk9Frqh+LU6GuiX1X7951-62-21 T15:04:07 Chief ComplaintPatient presents withPhysicalPatient is fasting.TonguePain under tongue for about a week. She is diabetic and is concerned. She states that her mouth is really dry [place] [address]-1Dlonz TaozLK3125-60-23P20:05:52Nurse NoteTXT1.2.840.342051.1.13.131.2.7.2. 963156|[id number] for patient aono12271-8Dbdwf NoteLNNARRATIVEFormatted C-CDA narrative [facility] [facility] [id number] 2753-52-50N36:05:521.2.840.517586.1.7 2.3.15|1.2.840.504805.1.13.131.2.7.2. [id number] [facility]"
[2024-03-21 14:07] LABS: Absolute Eosinophils 0.1 K/uL (0-0.5); Absolute Lymphocytes (CBC) 1.6 K/uL (0.7-4.9); Absolute Monocytes 0.3 K/uL (0.1-1.3); Absolute Neutrophil 3.4 K/uL (1.8-8.0); Basophils % 0.4 % (0-1.3); Eosinophils % 2.2 % (0-4.4); Hematocrit 34.8 % (36.0-45.0); Hemoglobin 11.7 g/dL (12.0-15.0); MCH 28.8 pg (27.0-35.0); MCHC 33.7 g/dL (32.0-36.0); MCV 85.6 fL (80-100); MPV 9.7 fL (7.6-11.3); Monocytes % 6.3 % (3.3-12.3); Neutrophils % 62.1 % (41.7-73.7); Platelets 227 thou/uL (152-406); RBC Red Blood Cell Count 4.07 M/uL (3.86-4.86); Red Cell Distribution Width 14.4 % (12.1-15.2)
[2024-03-21 14:11] LABS: PT Prothrombin Time 11.5 SECONDS (9.5-12.5); Protime INR 1.05
[2024-03-21 14:29] LABS: Albumin 3.7 g/dL (3.4-5.0); Albumin/Globulin Ratio 0.8 (1.1-1.8); Anion Gap 9.7 mEq/L (5.0-15.0); Bilirubin Direct 0.1 mg/dL (0-0.2); Bilirubin Indirect, Calculated 0.3 mg/dL (0.2-0.8); Bilirubin Total 0.4 mg/dL (0.2-1.0); Globulin 4.4 g/dL (2.3-3.5); Magnesium 1.9 mg/dL (1.6-2.4); Potassium 3.7 mEq/L (3.5-5.1); Protein, Total 8.1 g/dL (6.4-8.2); Troponin High Sensitivity 6.5 pg/mL (<58.9)
--- NOTE | 2024-03-21 14:30 | RAD REPORT ---
EXAM DESCRIPTION: RAD - Chest Single View - 03/21/2024 2:17 pm CLINICAL HISTORY: CHEST PAINS COMPARISON: Chest Pa And Lat (2 Views) dated 10/23/2023 FINDINGS: Lines: None. Lungs: No evidence of edema or pneumonia. Pleural: No significant pleural effusions or pneumothorax. Cardiac: Similar size and configuration Mediastinum: Within normal limits. Bones: No acute fractures. Other: None IMPRESSION: No acute cardiopulmonary disease.
[2024-03-21 14:52] LABS: SARS-CoV-2 Antigen CONTROL BLUE LINE VIS/BG OK; SARS-CoV-2 Antigen Rapid Res Negative (Negative)
[2024-03-21] MEDS ORDERED: ALBUTEROL 2.5 MG/3 ML NEB SOL ONE (15:48)
[2024-03-21] MEDS ORDERED: LEVALBUTEROL 1.25 MG/3 ML NEB ONE (15:49)
--- NOTE | 2024-03-21 16:45 | ER ---
Nurse's Notes [facility] Name: Pushpa Hays Age: 58 yrs Sex: Female : 1965 Arrival Date: 03/21/2024 Time: 13:11 Bed 6 Private MD: Diagnosis: Bronchitis Presentation: 03/21 13:22 Chief complaint: Patient states: chest pain x 1 week ago, pt also reports cough. aa5 13:22 Coronavirus screen: cough unrelated to allergies. Ebola Screen: Patient denies travel aa5 to an Ebola-affected area in the 21 days before illness onset. Initial Sepsis Screen: Does the patient meet any 2 criteria? No. Patient's initial sepsis screen is negative. Does the patient have a suspected source of infection? No. Patient's initial sepsis screen is negative. Risk Assessment: Do you want to hurt yourself or someone else? Patient reports no desire to harm self or others. Onset of symptoms was February 2024. 13:22 Acuity: KARINA 3 aa5 13:22 Method Of Arrival: Ambulatory aa5 Historical: - Allergies: 13:22 No Known Allergies; aa5 - PMHx: 13:22 GERD; Hypertension; ibs; osteoarthritis; Hypercholesterolemia; aa5 - PSHx: 13:23 tummy tuck; gastric bypass; Cholecystectomy; tubal ligation; hysterectomy; aa5 - Immunization history:: Adult Immunizations unknown. - Infectious Disease History:: Denies. - Social history:: Smoking status: Patient denies any tobacco usage or history of. Screenin:47 [facility] ED Fall Risk Assessment (Adult) History of falling in the last 3 months, mb9 including since admission No falls in past 3 months (0 pts) Confusion or Disorientation No (0 pts) Intoxicated or Sedated No (0 pts) Impaired Gait No (0 pts) Mobility Assist Device Used No (0 pt) Altered Elimination No (0 pt) Score/Fall Risk Level 0 - 2 = Low Risk Oriented to surroundings, Maintained a safe environment, Educated pt \T\ family on fall prevention, incl call for assistance when getting out of bed. Abuse screen: Denies threats or abuse. Nutritional screening: No deficits noted. Tuberculosis screening: No symptoms or risk factors identified. Assessment: 13:46 General: Appears in no apparent distress. Behavior is calm, cooperative. Pain: mb9 Complains of pain in chest Pain does not radiate. Pain currently is 8 out of 10 on a pain scale. Quality of pain is described as pressure, Pain began 1 day ago. Is intermittent, Aggravated by coughing. Neuro: Garber Agitation-Sedation Scale (RASS): 0 - Alert and Calm Level of Consciousness is awake, alert, obeys commands, Oriented to person, place, time, situation, Appropriate for age Reports headache. Cardiovascular: Reports chest pain, shortness of breath, Heart tones S1 S2 present Patient's skin is warm and dry. Rhythm is regular. Respiratory: Reports cough that is Airway is patent Respiratory effort is even, unlabored, Respiratory pattern is regular, symmetrical, Breath sounds are clear bilaterally. GI: Abdomen is round non-distended, Bowel sounds present X 4 quads. Abd is soft and non tender X 4 quads. : No signs and/or symptoms were reported regarding the genitourinary system. EENT: No signs and/or symptoms were reported regarding the EENT system. Derm: Skin is pink, warm \T\ dry. Musculoskeletal: Range of motion: intact in all extremities. 14:48 Reassessment: Patient appears in no apparent distress at this time. No changes from mb9 previously documented assessment. Patient and/or family updated on plan of care and expected duration. Pain level reassessed. Patient is alert, oriented x 3, equal unlabored respirations, skin warm/dry/pink. 15:51 Reassessment: Patient appears in no apparent distress at this time. No changes from mb9 previously documented assessment. Patient and/or family updated on plan of care and expected duration. Pain level reassessed. Patient is alert, oriented x 3, equal unlabored respirations, skin warm/dry/pink. Vital Signs: 13:22 BP 119 / 76; Pulse 88; Resp 18 S; Temp 97.5(TE); Pulse Ox 98% on R/A; Weight 112.49 kg aa5 (R); Height 5 ft. 6 in. (R); 14:48 BP 97 / 83; Pulse 76; Resp 18; Pulse Ox 100% on R/A; mb9 16:45 BP 118 / 62; Pulse 74; Resp 18; Pulse Ox 100% on R/A; mb9 13:22 Body Mass Index 40.03 (112.49 kg, 167.64 cm) aa5 ED Course: 13:14 Patient arrived in ED. mr 13:22 Arm band placed on. EKG completed in triage. Results shown to MD. aa5 13:25 Triage completed. aa5 13:26 Salma Stevenson MD is Attending Physician. sp3 13:40 Warm blanket given. Client placed on continuous cardiac and pulse oximetry monitoring. jg11 NIBP monitoring applied. groundwater monitoring technician on. 13:40 Initial lab(s) drawn, by me, sent to lab. EKG done, by ED staff. Inserted saline lock: jg11 22 gauge in right antecubital area, using aseptic technique. Blood collected. 13:42 Patti Sparks, RN is Primary Nurse. mb9 13:47 Placed in gown. Bed in low position. Call light in reach. Side rails up X 1. Provided mb9 Education on: press call light if needing anything. 13:47 Basic Metabolic Panel Sent. jg11 13:47 CBC with Diff Sent. jg11 13:47 LFT's Sent. jg11 13:47 Magnesium Sent. jg11 13:47 NT PRO-BNP Sent. jg11 13:47 PT-INR Sent. jg11 13:47 Troponin HS Sent. jg11 13:48 No provider procedures requiring assistance completed. mb9 14:18 Chest Single View In Process Unspecified. [facility] 15:51 Troponin HS Sent. mb9 15:51 Repeat lab(s) drawn. by me, sent to lab. jg11 16:45 IV discontinued, intact, bleeding controlled, No redness/swelling at site. Pressure mb9 dressing applied. Administered Medications: 15:51 Drug: DuoNeb Nebulize (3:1) (2.5 mg - 0.5 mg) 3 ml Nebulizer once Route: Nebulizer; mb9 16:36 Follow up: Response: No adverse reaction mb9 Medication: 13:48 VIS not applicable for this client. mb9 Outcome: 16:45 Discharge ordered by . sp3 16:45 Discharged to home ambulatory, mb9 16:45 Condition: stable 16:45 Discharge instructions given to patient, Instructed on discharge instructions, follow up and referral plans. Demonstrated understanding of instructions, follow-up care, 16:49 Prescriptions given X 2, mb9 16:51 Patient left the ED. mb9 Signatures: Dispatcher [employer] EDDE Patti Burton Reg Reg mr RendonVirginia, HAY RN aa5 Salma Stevenson MD MD sp3 Patti Sparks RN RN mb9 Joseph Garrett jg11 Corrections: (The following items were deleted from the chart) 16:34 16:33 Reassessment: See [facility] for further charting mb9 mb9
--- NOTE | 2024-03-21 16:45 | EDPHYS ---
Physician Documentation [facility] Name: Pushpa Hays Age: 58 yrs Sex: Female : 1965 Arrival Date: 03/21/2024 Time: 13:11 Bed 6 Private MD: ED Physician Salma Stevenson HPI: 03/21 13:47 This 58 yrs old Black Female presents to ER via Ambulatory with complaints of Chest sp3 Pain. 13:47 58-year-old female with a history of asthma, hyperlipidemia, hypertension, diabetes, sp3 GERD now presents to the ED with chief complaint chest pain, cough and upper respiratory congestion. Symptoms been going on for 2 to 3 days. No history of cardiac disease. Pain is on the left lower rib area and worse when coughing. She denies any headache, neck pain, sinus drainage, ear pain, abdominal pain, vomiting, diarrhea, back pain, syncope, near syncope, focal neurological deficit, rash, known sick contacts, prolonged immobilization, travel history, or any other signs or symptoms on ROS at this time.. Historical: - Allergies: 13:22 No Known Allergies; aa5 - PMHx: 13:22 GERD; Hypertension; ibs; osteoarthritis; Hypercholesterolemia; aa5 - PSHx: 13:23 tummy tuck; gastric bypass; Cholecystectomy; tubal ligation; hysterectomy; aa5 - Immunization history:: Adult Immunizations unknown. - Infectious Disease History:: Denies. - Social history:: Smoking status: Patient denies any tobacco usage or history of. ROS: 13:48 Constitutional: Negative for fever, chills, and weight loss, Eyes: Negative for injury, sp3 pain, redness, and discharge, Neck: Negative for injury, pain, and swelling, Abdomen/GI: Negative for abdominal pain, nausea, vomiting, diarrhea, and constipation, Back: Negative for injury and pain, MS/Extremity: Negative for injury and deformity, Skin: Negative for injury, rash, and discoloration, Neuro: Negative for headache, weakness, numbness, tingling, and seizure, Psych: Negative for depression, anxiety, suicide ideation, homicidal ideation, and hallucinations, Allergy/Immunology: Negative for hives, rash, and allergies, Endocrine: Negative for neck swelling, polydipsia, polyuria, polyphagia, and marked weight changes, 13:48 All other systems are negative, Exam: 13:50 Constitutional: This is a well developed, well nourished patient who is awake, alert, sp3 and in no acute distress. Head/Face: Normocephalic, atraumatic. Eyes: Pupils equal round and reactive to light, extra-ocular motions intact. Lids and lashes normal. Conjunctiva and sclera are non-icteric and not injected. Cornea within normal limits. Periorbital areas with no swelling, redness, or edema. ENT: Nares patent. No nasal discharge, no septal abnormalities noted. External auditory canals are clear. Oropharynx with no redness, swelling, or masses, exudates, or evidence of obstruction, uvula midline. Mucous membranes moist. Neck: Trachea midline, no thyromegaly or masses palpated, and no cervical lymphadenopathy. Supple, full range of motion without nuchal rigidity, or vertebral point tenderness. No Meningismus. Chest/axilla: Normal chest wall appearance and motion. Nontender with no deformity. No lesions are appreciated. Cardiovascular: Regular rate and rhythm with a normal S1 and S2. No gallops, murmurs, or rubs. Normal PMI, no JVD. No pulse deficits. Respiratory: Lungs have equal breath sounds bilaterally, clear to auscultation and percussion. No rales, rhonchi or wheezes noted. No increased work of breathing, no retractions or nasal flaring. Abdomen/GI: Soft, non-tender, with normal bowel sounds. No distension or tympany. No guarding or rebound. No evidence of tenderness throughout. Back: No spinal tenderness. No costovertebral tenderness. Full range of motion. Skin: Warm, dry with normal turgor. Normal color with no rashes, no lesions, and no evidence of cellulitis. MS/ Extremity: Pulses equal, no cyanosis. Neurovascular intact. Full, normal range of motion. Neuro: Awake and alert, GCS 15, oriented to person, place, time, and situation. Cranial nerves II-XII grossly intact. Motor strength 5/5 in all extremities. Sensory grossly intact. Cerebellar exam normal. Normal gait. Psych: Awake, alert, with orientation to person, place and time. Behavior, mood, and affect are within normal limits. 13:50 ECG was reviewed by the Attending Physician. EKG demonstrates normal sinus rhythm at 88 bpm with normal intervals, normal QRS, normal axis, nonspecific diffuse ST's ST changes without evidence of acute ischemia. Vital Signs: 13:22 BP 119 / 76; Pulse 88; Resp 18 S; Temp 97.5(TE); Pulse Ox 98% on R/A; Weight 112.49 kg aa5 (R); Height 5 ft. 6 in. (R); 14:48 BP 97 / 83; Pulse 76; Resp 18; Pulse Ox 100% on R/A; mb9 16:45 BP 118 / 62; Pulse 74; Resp 18; Pulse Ox 100% on R/A; mb9 13:22 Body Mass Index 40.03 (112.49 kg, 167.64 cm) aa5 MDM: 13:30 Patient medically screened. sp3 13:52 Data reviewed: vital signs, nurses notes, lab test result(s), EKG, radiologic studies. sp3 ED course: 58-year-old female with PMH above now with chest pain, cough, and upper respiratory symptoms. Differential diagnosis includes bronchitis, pneumonia, pleurisy and to a lesser degree ACS spectrum. I am not highly suspicious for cardiac disease/etiology given EKG. Workup will include chest x-ray, laboratory values including troponin and general observation. Disposition pending workup and patient course.. 15:47 ED course: Full workup negative including chest x-ray and initial troponin and swabs. sp3 Patient still coughing we will administer nebulizer and get second troponin. If second troponin is negative we will safely discharge patient home on oral antibiotics and follow-up to PCP.. 16:44 ED course: Repeat troponin negative and patient feels better after nebulizer. We will sp3 safely discharge patient home on NSAID and Zithromax.. 03/21 13:53 Order name: SARS RAPID sp3 03/21 14:02 Order name: Basic Metabolic Panel EDTX 03/21 14:02 Order name: Liver (Hepatic) Function EDTX 03/21 14:02 Order name: Troponin High Sensitivity EDTX 03/21 14:02 Order name: NT PRO-BNP EDTX 03/21 14:02 Order name: Magnesium EDTX 03/21 14:02 Order name: CBC with Automated Diff EDTX 03/21 14:02 Order name: Protime (+INR) EDTX 03/21 14:08 Order name: CBC with Automated Diff; Complete Time: 15:44 EDMS 03/21 14:12 Order name: Protime (+INR); Complete Time: 15:44 EDMS 03/21 14:13 Order name: SARS-COV-2 Antigen Rapid EDMS 03/21 14:13 Order name: Influenza Screen (A EDMS 03/21 14:13 Order name: Group A Streptococcus Rapid Sc EDMS 03/21 14:29 Order name: Basic Metabolic Panel; Complete Time: 15:44 EDMS 03/21 14:29 Order name: Liver (Hepatic) Function; Complete Time: 15:44 EDMS 03/21 14:29 Order name: Troponin High Sensitivity; Complete Time: 15:44 EDMS 03/21 14:29 Order name: NT PRO-BNP; Complete Time: 15:44 EDMS 03/21 14:29 Order name: Magnesium; Complete Time: 15:44 EDMS 03/21 14:52 Order name: SARS-COV-2 Antigen Rapid; Complete Time: 15:44 EDMS 03/21 14:52 Order name: Throat Culture; Complete Time: 15:44 EDMS 03/21 14:52 Order name: Group A Streptococcus Rapid Sc; Complete Time: 15:44 EDMS 03/21 14:53 Order name: Influenza Screen (A ; Complete Time: 15:44 EDMS 03/21 14:55 Order name: Throat Culture EDMS 03/21 15:59 Order name: Troponin High Sensitivity EDMS 03/21 16:23 Order name: Troponin High Sensitivity; Complete Time: 16:44 EDMS 03/21 13:45 Order name: Chest Single View EDMS 03/21 14:30 Order name: RAD; Complete Time: 15:44 EDMS 03/21 13:30 Order name: EKG; Complete Time: 13:30 sp3 03/21 13:30 Order name: Cardiac monitoring; Complete Time: 13:47 sp3 03/21 13:30 Order name: EKG - Nurse/Tech; Complete Time: 13:32 sp3 03/21 13:30 Order name: IV Saline Lock; Complete Time: 13:47 sp3 03/21 13:30 Order name: Labs collected and sent; Complete Time: 13:47 sp3 03/21 13:30 Order name: O2 Per Protocol; Complete Time: 13:32 sp3 03/21 13:30 Order name: O2 Sat Monitoring; Complete Time: 13:32 sp3 Administered Medications: 15:51 Drug: DuoNeb Nebulize (3:1) (2.5 mg - 0.5 mg) 3 ml Nebulizer once Route: Nebulizer; mb9 16:36 Follow up: Response: No adverse reaction mb9 Disposition Summary: 03/21/24 16:45 Discharge Ordered Notes: Location: Home sp3 Condition: Stable sp3 Diagnosis - Bronchitis sp3 Followup: sp3 - With: Private Physician - When: Upon discharge from the Emergency Department - Reason: Continuance of care Discharge Instructions: - Discharge Summary Sheet sp3 - Acute Bronchitis, Adult sp3 Forms: - Medication Reconciliation Form sp3 - Antibiotic Education sp3 - Prescription Opioid Use sp3 - Patient Portal Instructions sp3 - Leadership Thank You Letter sp3 - Work release form mb9 Prescriptions: - Diclofenac Sodium 75 mg Oral Tablet Sustained Release - take 1 tablet ORAL route 2 times per day; 30 tablet; Refills: 0, Product sp3 Selection Permitted - Zithromax Z-Fernando 250 mg Oral Tablet - take 1 tablet ORAL route as directed for 5 days Day 1 - take two (2) tablets sp3 one time. Day 2, 3, 4 , 5 take one (1) tablet once daily.; 6 tablet; Refills: 0, Product Selection Permitted Signatures: Dispatcher [employer] [place] Hoyos RN RN aa5 Salma Stevenson MD MD sp3 Patti Sparks RN RN mb9
[2024-03-22 14:49] VITALS: BP 118/62; TEMP 97.5; O2SAT 100
--- NOTE | 2024-03-24 14:47 | EKG ---
Test Date: 2024-03-21 Test Time: 13:21:38 Flue Tile Press Operator: CHARLI MEASUREMENT RESULTS: Intervals: Rate: 88 UT: 142 QRSD: 84 QT: 350 QTc: 423 [place]: P: 66 UT: 142 QRS: 56 T: 21 INTERPRETIVE STATEMENTS: Normal sinus rhythm Nonspecific T wave abnormality Abnormal ECG No previous ECG available for comparison Electronically Signed On 03-24-24 14:40:08 CDT by Arnoldo Camacho
== END 2024-03-21 16:51 | disposition home or self-care (01) ==
LOC: ER 13:11
DX: J40 Bronchitis, not specified as acute or chronic (principal); Z11.52 Encounter for screening for COVID-19
CPT/HCPCS: 87070; 85025; 80048; 36415; 83735; 85610; 80076; 87081; 84484 ×2; 83880; 87804 ×2; 71045; 94640; 99285; 87811; J7614; J7613; 93005

== ENCOUNTER 2025-01-14 17:12 | Emergency (ER) | payer OTHER ==
--- OUTSIDE RECORDS SUMMARY | 2025-01-14 17:18 | XMS REPORT | Continuity of Care Document ---
Author Name Unknown Address [address] [facility] [address] [place] [address] [facility] thconnect Address [address] [facility]. [address] [place] [address] Care Team Providers Care Occupational Therapy Asst Name Role Phone Valeria Stone Primary Care Physician ALVIN OSBORN Attending Clinician Unavailable JULIA MARTINEZ Attending Clinician Unavailable NOEMI SCHOFIELD Attending Clinician Unavailable [facility] Attending Clinician Unavailable [facility] Attending Clinician Unavailable JOSE VENEGAS Attending Clinician Unavailable MARI LEVI Attending Clinician Unava ilable CLAUS PA Attending Clinician Unavailable CAMILLE BENAVIDES Attending Clinician Unavailable SHARON HERNANDEZ Attending Clinician Unava ilable CHACE LISA Attending Clinician Unavailable LAURA SOLANO Attending Clinician Un available Payers Payer Name Policy Type Policy Number Effective Date Expirati on Date Source [facility] 9 [id number] 2024 00:00:00 [employer] S[employer] 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 ON 9 [id number] 2023 00:00:00 Problems Condition Name Condition Details Condition Category Status Onset Date Resolution Date Last Treatment Date Treating Clinician Comments Source 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 emia (multi HCC) 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 emia (multi HCC) Disease Active 2022-11 00:00: 00 Marissa Soto - Externa l Depression with anxiety - Not Controlled Depression with anxiety - Not Controlled Disease Active 2022-11 00:00: 00 Marissa Soto - Externa l Osteoporos is Osteoporos is Disease Active 2022-11 00:00: 00 Marissa Olmosold - Externa l IBS (irritable bowel syndrome) IBS (irritable bowel syndrome) Disease Active 2022-11 00:00: 00 Marissa Olmosold - Externa l Hyperlipid emia Hyperlipid emia Disease Active 2022-11 00:00: 00 Marissa Olmosold - Externa l HTN (hypertens ion) HTN (hypertens ion) Disease Active 2022-11 00:00: 00 Marissa Soto - Externa l GERD (gastroeso phageal reflux disease) GERD (gastroeso phageal reflux disease) Disease Active 2022-11 00:00: 00 Marissa Soto - Externa l Asthma ([facility]CC) Asthma ([facility]) Disease Active 2022-11 00:00: 00 Marissa Olmosold - Externa l Allergies, Adverse Reactions, Alerts Allergy Name Allergy Type Status Severity Reaction(s) Onset Date Inactive Date Treating Clinician Comments Source Codeine Propensi ty to adverse reaction s Active 05-31 00:00: 00 Marissa Wymana scarlet Mesna - Intraven ous Propensi ty to adverse reaction to drug Active 05-31 00:00: 00 Chace Zapien Social History Social Habit Start Date Stop Date Quantity Comments Source Sexual orientation 2023-11-08 08:37:30 Heterosexual (finding) Marissa Soto - External ASSERTION Not Marissa Soto - External Alcoholic beverage intake 2025-01-02 00:00:00 2025-01-02 00:00:00 Current drinker of alcohol (finding) Marissa Soto - External History of Social function 2025-01-02 00:00:00 2025-01-02 00:00:00 Marissa Soto - External Tobacco use and exposure 2024-12-02 00:00:00 2024-12-02 00:00:00 Smokeless tobacco non-user Marissa Kaurvilmamat - External Alcohol intake 2024-02-07 00:00:00 2024-02-07 00:00:00 Current drinker of alcohol (finding) Marissa Soto - External Sex 2023-11-08 08:29:26 2023-11-08 08:29:26 Female (finding) Marissa Soto - External Alcohol Comment 2023-11-08 00:00:00 2023-11-08 00:00:00 rarely Marissa Kaurvilmamat - External Sex assigned at 1965 00:00:00 1965 00:00:00 F Marissa Soto - External Smoking Status Start Date Stop Date Source Never smoked tobacco Marissa Soto - External Medications Ordered Medication Name Filled Medication Name Start Date Stop Date Current Medication? Ordering Clinician Indication Dosage Frequency Signature (SIG) Comments Components Source Amlodipine Besylate 10 MG oral Tablet 01-02 11:00: 25 Yes 10mg QD Take 1 tablet (10 mg total) by mouth daily. Marissa novak Tirzepatide (Mounjaro) 5 MG/0.5ML subcutaneou s Solution Auto-inject or 01-02 00:00: 00 Yes [id number] 3 5mg Q1W Inject 5 mg into the skin once a week. Marissa novak guaiFENesin -Codeine 100-10 MG/5ML oral Solution 01-02 00:00: 00 Yes [id number] 5mL Q.[id number] 3D Take 5 mL by mouth 3 times daily as needed for cough. Marissa novak Pseudoeph-B romphen-DM 30-2-10 MG/5ML oral Syrup 01-02 00:00: 00 Yes [id number] 10mL Q.25D Take 10 mL by mouth 4 times daily as needed. Marissa novak Budesonide- Formoterol Fumarate 80-4.5 MCG/ACT inhalation Aerosol 01-02 00:00: 00 Yes [id number] 2{puff} Q.5D Inhale 2 puffs into the lungs 2 times daily. Marissa novak dexAMETHaso ne 2 MG oral Tablet 01-02 00:00: 00 Yes [id number] 2mg QD Take 1 tablet (2 mg total) by mouth daily (with breakfast) . Marissa novak Azithromyci n 250 MG oral Tablet 01-02 00:00: 00 01-08 05:59 :00 Yes [id number] Take 2 tablets by mouth on day 1 then 1 tablet by mouth daily for 4 days thereafter .. Marissa novak Meloxicam 7.5 MG oral Tablet 12-22 00:00: 00 Yes 7.5mg QD Take 1 tablet (7.5 mg total) by mouth daily as needed. Marissa novak Amlodipine Besylate 10 MG oral Tablet 12-02 14:57: 10 Yes 10mg QD Take 1 tablet (10 mg total) by mouth daily. Marissa novak Famotidine 40 MG oral Tablet 12-02 00:00: 00 Yes [id number] 40mg QD Take 1 tablet (40 mg total) by mouth daily. Marissa novak Omeprazole 40 MG oral Delayed Release Capsule 12-02 00:00: 00 Yes [id number] 40mg QD Take 1 capsule (40 mg total) by mouth daily. Marissa novak Ondansetron (ZOFRAN) 8 MG oral tablet 12-02 00:00: 00 Yes [id number] 8mg Q.[id number] 3D Take 1 tablet (8 mg total) by mouth every 8 hours as needed for nausea. Marissa novak Sertraline HCl 100 MG oral Tablet 12-02 00:00: 00 Yes [id number] 150mg QD Take 1.5 tablets (150 mg total) by mouth daily. Marissa novak Trazodone HCl 50 MG oral Tablet 12-02 00:00: 00 Yes [id number] 50mg QD Take 1 tablet (50 mg total) by mouth nightly. Marissa novak Lubiproston e 24 MCG oral Capsule 12-02 00:00: 00 Yes [id number] 24ug Q.5D Take 1 capsule (24 mcg total) by mouth 2 times daily as needed for constipati on. Marissa novak Tirzepatide 2.5 MG/0.5ML subcutaneou s Solution Auto-inject or 12-02 00:00: 00 01-02 00:00 :00 No [id number] 3 2.5mg Q1W Inject 2.5 mg into the skin once a week. Marissa novak Tirzepatide (Mounjaro) 7.5 MG/0.5ML subcutaneou s Solution Auto-inject or 12-02 00:00: 00 12-02 00:00 :00 No [id number] 3 7.5mg Q1W Inject 7.5 mg into the skin once a week. Marissa novak Meloxicam 15 MG oral Tablet 2023-11 00:00: 00 12-02 00:00 :00 No TAKE ONE (1) CAPSULE(S) BY MOUTH DAILY NEEDED FOR PAIN. Marissa novak Cyclobenzap rine HCl 10 MG oral Tablet 2023-11 00:00: 00 Yes TAKE ONE (1) TABLET(S) BY MOUTH THREE TIMES A DAY NEEDED FOR MUSCLE SPASMS. DO NOT DRIVE WITHIN 8 HOURS OF DOSE. Marissa novak Metformin HCl 500 MG oral Tablet 2023-11 00:00: 00 Yes 500mg QD Take 1 tablet (500 mg total) by mouth daily. Marissa novak metformin 500 mg tablet 2023-11 00:00: 00 Yes mg Chace Zapien Ondansetron (ZOFRAN) 8 MG oral tablet 9-27 00:00: 00 12-02 00:00 :00 No [id number] TAKE ONE (1) TABLET(S) BY MOUTH NEEDED EVERY EIGHT HOURS FOR NAUSEA. Marissa novak metformin 500 mg tablet 08-11 00:00: 00 Yes 1mg Chace Zapien baclofen 10 mg tablet 08-11 00:00: 00 Yes 1mg Chace Zapien Baclofen 10 MG oral Tablet 08-11 00:00: 00 Yes 10mg Q.5D Take 1 tablet (10 mg total) by mouth 2 times daily as needed. Marissa novak Fluticasone Furoate-Seamus anterol 100-25 MCG/ACT inhalation AEROSOL POWDER, BREATH ACTIVATED 08-02 00:00: 00 01-02 00:00 :00 No INHALE ONE (1) PUFF(S) BY MOUTH ONCE A DAY NEEDED FOR WHEEZING. Marissa novak Breo Ellipta 100 mcg-25 mcg/dose powder for inhalation 08-01 00:00: 00 Yes 1mcg/do se Chace Zapien albuterol sulfate HFA 90 mcg/actuati on aerosol inhaler 07-30 00:00: 00 Yes 12mcg/a ctuatio n Chace Zapien terbinafine HCl 250 mg tablet 07-30 00:00: 00 Yes 1mg Chace Zapien Budeson-Gly copyrrol-Fo rmoterol (Breztri Aerosphere) 160-9-4.8 MCG/ACT inhalation Aerosol 07-30 00:00: 00 01-02 00:00 :00 No Marissa novak diclofenac 1 % topical gel 07-15 00:00: 00 Yes 1% Chace Zapien prednisone 50 mg tablet 07-15 00:00: 00 Yes 1mg Chace Zapien Celebrex 200 mg capsule 07-15 00:00: 00 Yes 1mg Chace Zapien Tirzepatide (Mounjaro) 2.5 MG/0.5ML subcutaneou s Solution Auto-inject or 07-15 00:00: 00 01-02 00:00 :00 No Marissa novak losartan 100 mg-hydrochl orothiazide 25 mg tablet -23 00:00: 00 Yes mg Chace Zapien Cetirizine (ZYRTEC) 10 MG oral Tablet 7-19 00:00: 00 Yes [id number] 10mg QD Take 1 tablet (10 mg total) by mouth daily. Marissa novak omeprazole 40 mg capsule,del ayed release 5-03 00:00: 00 Yes mg Chace Zapien famotidine 40 mg tablet -30 00:00: 00 Yes mg Chace Zapien montelukast 10 mg tablet -24 00:00: 00 Yes mg Chace Zapien cetirizine 10 mg tablet 03-11 00:00: 00 Yes mg Chace Zapien atorvastati n 20 mg tablet -15 00:00: 00 Yes mg Chace Zapien sertraline 100 mg tablet 4-13 00:00: 00 Yes mg Chace Zapien Sertraline HCl 100 MG oral Tablet -11 00:00: 00 12-02 00:00 :00 No [id number] 100mg QD Take 1 tablet (100 mg total) by mouth daily. Marissa novak ondansetron HCl 8 mg tablet 02-08 00:00: 00 Yes mg Chace Zapien Amlodipine Besylate 10 MG oral Tablet 02-06 13:12: 17 Yes 10mg Take 1 tablet (10 mg total) by mouth daily. Marissa novak Ondansetron (ZOFRAN) 8 MG oral tablet 02-06 00:00: 00 Yes [id number] 8mg Q.[id number] 3D Take 1 tablet (8 mg total) by mouth every 8 hours as needed for nausea. Marissa novak Trulicity 3 MG/0.5ML subcutaneou s Solution Pen-injecto r 02-06 00:00: 00 01-02 00:00 :00 No [id number] 3 INJECT THREE (3) MG UNDER THE SKIN ONCE A WEEK. Marissa novak Pseudoeph-B romphen-DM 30-2-10 MG/5ML oral Syrup 3-21 00:00: 00 01-02 00:00 :00 No [id number] 10mL Q.25D Take 10 mL by mouth 4 times daily as needed. Marissa novak ALENDRONATE 70MG 01-27 00:00: 00 Yes Chace Zapien Alendronate Sodium 70 MG oral Tablet 01-27 00:00: 00 Yes 70mg Take 1 tablet (70 mg total) by mouth every 7 days. Marissa novak Amlodipine Besylate 10 MG oral Tablet 01-07 09:11: 23 Yes 10mg Take 1 tablet (10 mg total) by mouth daily. Marissa novak TAKE ONE (1) TABLET(S) BY MOUTH DAILY. 01-07 00:00: 00 Yes Chace Zapien INJECT THREE (3) MG UNDER THE SKIN ONCE A WEEK. 01-07 00:00: 00 Yes Chace Zapien Trulicity 3 MG/0.5ML subcutaneou s Solution Pen-injecto r 01-07 00:00: 00 Yes [id number] 3 3mg Inject 3 mg into the skin once a week. Marissa novak Ondansetron (ZOFRAN) 8 MG oral tablet 01-07 00:00: 00 Yes [id number] 8mg Q.[id number] 3D Take 1 tablet (8 mg total) by mouth every 8 hours as needed for nausea. Marissa novak Sertraline HCl 100 MG oral Tablet 01-07 00:00: 00 Yes [id number] 100mg Take 1 tablet (100 mg total) by mouth daily. Marissa novak LUBIPROSTON E 24MCG - 00:00: 00 Yes Chace Zapien TAKE ONE (1) CAPSULE(S) BY MOUTH TWICE A DAY NEEDED FOR CONSTIPATIO N. 2- 00:00: 00 Yes Chace Zapien Lubiproston e 24 MCG oral Capsule 12-20 00:00: 00 12-02 00:00 :00 No [id number] 24ug Q.5D Take 1 capsule (24 mcg [...] mg total) by mouth daily. Marissa novak TRULICITY(4 ) 1.5/0.5 PEN 12-14 00:00: 00 Yes Chaceeduardo Zapien SERTRALINE 50MG 12-14 00:00: 00 Yes Chace Zapien Sertraline HCl 50 MG oral Tablet 12-14 00:00: 00 Yes [id number] 50mg Take 1 tablet (50 mg total) by mouth daily. Marissa novak Trulicity 1.5 MG/0.5ML subcutaneou s Solution Pen-injecto r 12-14 00:00: 00 Yes [id number] 3 1.5mg Inject 1.5 mg into the skin once a week. Marissa novak linaCLOtide (Linzess) 145 MCG oral Capsule 12-14 00:00: 00 Yes [id number] 145ug Take 1 capsule (145 mcg total) by mouth daily. Marissa novak Losartan Potassium-H CTZ 100-25 MG oral Tablet 12-14 00:00: 00 Yes [id number] 1{tbl} QD Take 1 tablet by mouth daily. Marissa novak linaCLOtide (Linzess) 145 MCG oral Capsule 12-10 08:34: 25 Yes 145ug Take 1 capsule (145 mcg total) by mouth daily. Marissa novak Amlodipine Besylate 10 MG oral Tablet 12-10 08:34: 25 Yes 10mg Take 1 tablet (10 mg total) by mouth daily. Marissa novak TAKE ONE (1) TABLET(S) BY MOUTH IN THE EVENING. 12-10 00:00: 00 Yes 10 Chace Zapien TAKE ONE (1) TABLET(S) BY MOUTH DAILY. 12-10 00:00: 00 Yes Chace Zapien Cetirizine HCl (ZyrTEC Allergy) 10 MG oral Capsule 12-10 00:00: 00 Yes [id number] 10mg Take 1 capsule (10 mg total) by mouth daily. Marissa novak Montelukast (Singulair) 10 MG oral Tablet tablet 12-10 00:00: 00 Yes [id number] 10mg QD Take 1 tablet (10 mg total) by mouth nightly. Marissa novak Methylpredn isolone Acetate (Depo-Medro l) 40 mg/ml - Physician Administere d ([id number]) 12-06 19:30: 00 12-06 20:45 :00 No [id number] 40mg Marissa novak linaCLOtide (Linzess) 145 MCG oral Capsule 12-06 13:00: 26 Yes 145ug Take 1 capsule (145 mcg total) by mouth daily. Marissa novak Amlodipine Besylate 10 MG oral Tablet 12-06 13:00: 26 Yes 10mg Take 1 tablet (10 mg total) by mouth daily. Marissa novak TAKE ONE (1) TABLET(S) BY MOUTH ONCE A DAY. 11-21 00:00: 00 Yes Chace Zapien Atorvastati n Calcium 20 MG oral Tablet 11-21 00:00: 00 Yes [id number] 3 20mg QD Take 1 tablet (20 mg total) by [...] mg total) by mouth daily. Marissa novak INJECT 0.75 MG UNDER THE SKIN ONCE A WEEK. 2022-11 00:00: 00 Yes Chace Zapien TAKE ONE (1) TABLET(S) BY MOUTH DAILY. 2022-11 00:00: 00 Yes Chace Zapien Sertraline HCl 25 MG oral Tablet 2022-11 00:00: 00 12-14 00:00 :00 No [id number] 25mg Take 1 tablet (25 mg total) by mouth daily. Marissa novak Trulicity 0.75 MG/0.5ML subcutaneou s Solution Pen-injecto r 2022-11 00:00: 00 12-14 00:00 :00 No [id number] 3 .75mg Inject 0.75 mg into the skin once a week. Marissa novak Famotidine 40 MG oral Tablet 2022-11 14:44: 21 11-08 00:00 :00 No 40mg Take 1 tablet (40 mg total) by mouth daily. Marissa novak Alendronate Sodium 70 MG oral Tablet 2022-11 14:44: 21 11-08 00:00 :00 No 70mg Take 1 tablet (70 mg total) by mouth every 7 days. Marissa novak Ondansetron (ZOFRAN) 8 MG oral tablet 2022-11 14:44: 21 11-08 00:00 :00 No 8mg Q.[id number] 3D Take 1 tablet (8 mg total) [...] mg total) by mouth daily. Marissa novak TAKE ONE (1) TABLET(S) BY MOUTH EVERY EIGHT HOURS NEEDED FOR NAUSEA. 2022-11 00:00: 00 Yes Chace Zapien TAKE ONE (1) TABLET(S) BY MOUTH ONCE EVERY 7 DAYS. 2022-11 00:00: 00 Yes Chace Zapien TAKE ONE (1) CAPSULE(S) BY MOUTH ONCE A DAY. 2022-11 00:00: 00 Yes Chace Zapien TAKE ONE (1) TABLET(S) BY MOUTH ONCE A DAY. 2022-11 00:00: 00 Yes Chace Zapien TAKE 2 TABLETS BY MOUTH ON DAY 1, THEN 1 TABLET DAILY ON DAYS 2 TO 5. 2022-11 00:00: 00 Yes Chace Zapien Alendronate Sodium 70 MG oral Tablet 2022-11 00:00: 00 Yes [id number] 70mg Take 1 tablet (70 mg total) by mouth every 7 days. Marissa novak Famotidine 40 MG oral Tablet 2022-11 00:00: 00 12-02 00:00 :00 No [id number] 40mg QD Take 1 tablet (40 mg total) by mouth daily. Marissa novak Omeprazole 40 MG oral Delayed Release Capsule 2022-11 00:00: 00 12-02 00:00 :00 No [id number] 40mg QD Take 1 capsule (40 mg total) by mouth daily. Marissa novak Ondansetron (ZOFRAN) 8 MG oral tablet 2022-11 00:00: 00 01-07 00:00 :00 No [id number] 8mg Q.[id number] 3D Take 1 tablet (8 mg total) by mouth every 8 hours as needed for nausea. Marissa novak Azithromyci n 250 MG oral Tablet 2022-11 00:00: 00 11-14 05:59 :00 No [id number] Take 2 tablets by mouth on day 1 then 1 tablet by mouth daily for 4 days thereafter .. Marissa novak TAKE ONE (1) TABLET(S) BY MOUTH ONCE A DAY. 2022-11 00:00: 00 Yes Chace Zapien BENZONATATE 100MG 2022-11- 00:00: 00 Yes Chace Zapien METFORMIN 500MG 2022-11- 00:00: 00 Yes Chace Zapien ALBUTEROL PA HFA 200 INH 2022-11- 00:00: 00 Yes Chace Zapien Losartan Potassium-H CTZ 100-25 MG oral Tablet 2022-11 00:00: 00 Yes 1{tbl} Take 1 tablet by mouth daily. Marissa novak Albuterol HFA 108 (90 Base) MCG/ACT IN AERS 2022-11 00:00: 00 Yes 2{puff} Q4H Inhale 2 puffs into the lungs every 4 hours as needed. Marissa Seybold - Externa l Metformin HCl 500 MG oral Tablet 2022-11 2-05 00:00: 00 12-06 00:00 :00 No 500mg Take 1 tablet (500 mg total) by mouth daily (with breakfast) . Marissa Seybold - Externa l INHALE 1 TO 2 PUFFS EVERY 6 HOURS NEEDED. 05-15 00:00: 00 02-26 00:00 :00 No [id number] Chace Zapien APPLY SPARINGLY TO AFFECTED AREA(S) 3 TIMES A DAY 05-15 00:00: 00 02-26 00:00 :00 No 1 Chace Zapien TAKE ONE (1) TABLET(S) BY MOUTH ONCE A DAY IN THE MORNING. 05-12 00:00: 00 Yes Chace Zapien TAKE ONE (1) TABLET(S) BY MOUTH TWICE A DAY. 05-12 00:00: 00 Yes Chace Zapien TAKE ONE (1) TABLET(S) BY MOUTH DAILY FOR HYPERTENSIO N. 05-12 00:00: 00 Yes Chace Zapien TAKE ONE (1) TABLET(S) BY MOUTH ONCE A DAY. 11-27 00:00: 00 Yes Chace Zapien TAKE ONE (1) CAPSULE(S) BY MOUTH ONCE A DAY. 2021-11 00:00: 00 Yes Chace Zapien TAKE ONE (1) TABLET(S) BY MOUTH ONCE A DAY. 2021-11 0 00:00: 00 Yes Chace Zapien TAKE ONE (1) TABLET(S) BY MOUTH ONCE A DAY. 2021-11 0 00:00: 00 Yes Chace Zapien TAKE ONE (1) TABLET(S) BY MOUTH DAILY. 08-10 00:00: 00 Yes Chace Zapien TAKE ONE (1) TABLET(S) BY MOUTH ONCE A DAY. 08-04 00:00: 00 No TAKE ONE (1) TABLET(S) BY MOUTH ONCE A DAY. 08-04 00:00: 00 Yes Chace Zapien TAKE 1 CAPSULE BY MOUTH ONCE DAILY 2022-0 9-15 00:00: 00 Yes Chace Zapien TAKE 1 TABLET BY MOUTH AT BEDTIME 915 00:00: 00 Yes Chace Zapien TAKE ONE (1) TABLET(S) BY MOUTH DAILY. 9 00:00: 00 Yes Chace Zapien TAKE ONE (1) TABLET(S) BY MOUTH AT BEDTIME. 830 00:00: 00 Yes Chace Zapien TAKE ONE (1) TABLET(S) BY MOUTH ONCE A DAY. 07-05 00:00: 00 No 40 TAKE ONE (1) TABLET(S) BY MOUTH ONCE A DAY. 8 00:00: 00 No 40 TAKE ONE (1) TABLET(S) BY MOUTH ONCE A DAY. 07-05 00:00: 00 Yes 40 Chace Zapien TAKE ONE (1) TABLET(S) BY MOUTH ONCE A DAY. 07-05 00:00: 00 Yes Chace Zapien TAKE ONE (1) TABLET(S) BY MOUTH ONCE A DAY. 8-11 00:00: 00 Yes Chace Zapien Dose Unknown 8-08 00:00: 00 No Dose Unknown 8-08 00:00: 00 No Dose Unknown 8-08 00:00: 00 Yes Chace Zapien TAKE 1 TABLET TWICE DAILY. 8- 00:00: 00 No 500 TAKE 1 TABLET TWICE DAILY. 8-03 00:00: 00 No 500 TAKE 1 TABLET TWICE DAILY. 8-03 00:00: 00 Yes 500 Chace Zapien TAKE 1 TABLET TWICE DAILY. 16 00:00: 00 No 500 TAKE 1 TABLET TWICE DAILY. 7-16 00:00: 00 No 500 TAKE 1 TABLET TWICE DAILY. 7-16 00:00: 00 Yes 500 Chace Zapien losartan 100 mg-hydrochl orothiazide 12.5 mg tablet -15 00:00: 00 No 1mg amlodipine 10 mg tablet -15 00:00: 00 No 1mg losartan 100 mg-hydrochl orothiazide 12.5 mg tablet 06-02 00:00: 00 No 1mg amlodipine 10 mg tablet 06-02 00:00: 00 No 1mg losartan 100 mg-hydrochl orothiazide 12.5 mg tablet 06-02 00:00: 00 Yes 1mg Chace Zapien amlodipine 10 mg tablet 06-02 00:00: 00 Yes 1mg Chace Zapien TAKE ONE (1) TABLET(S) BY MOUTH TWICE A DAY. 05-24 00:00: 00 Yes Chace Zapine Abilify 5 mg tablet 05-16 00:00: 00 No 15mg Cymbalta 30 mg capsule,del ayed release 05-16 00:00: 00 No 1mg Dose Unknown 05-16 00:00: 00 No Abilify 5 mg tablet 05-16 00:00: 00 No 15mg Cymbalta 30 mg capsule,del ayed release 05-16 00:00: 00 No 1mg Dose Unknown 05-16 00:00: 00 No Dose Unknown 05-16 00:00: 00 Yes Chace Zapien TAKE ONE AND ONE-HALF (1 AND 1/2) TABLET(S) BY MOUTH DAILY. 05-16 00:00: 00 Yes Chace Zapien TAKE ONE (1) CAPSULE(S) BY MOUTH ONCE A DAY. 05-16 00:00: 00 Yes Chace Zapien Abilify 5 mg tablet 05-16 00:00: 00 Yes 15mg Chace Zapien Cymbalta 30 mg capsule,del ayed release 05-16 00:00: 00 Yes 1mg Chace Zapien Abilify 5 mg tablet 04-26 00:00: 00 No 1mg trazodone 50 mg tablet 04-26 00:00: 00 No 1mg Dose Unknown 04-26 00:00: 00 No Abilify 5 mg tablet 04-26 00:00: 00 No 1mg trazodone 50 mg tablet 04-26 00:00: 00 No 1mg Dose Unknown 04-26 00:00: 00 No Abilify 5 mg tablet 04-26 00:00: 00 Yes 1mg Chace Zapien trazodone 50 mg tablet 04-26 00:00: 00 Yes 1mg Chace Zapien Dose Unknown 04-26 00:00: 00 Yes Chace Zapien famotidine 40 mg tablet 04-24 00:00: 00 No 1mg naproxen 500 mg tablet 04-24 00:00: 00 No 1mg Dose Unknown 04-24 00:00: 00 No famotidine 40 mg tablet 04-24 00:00: 00 No 1mg naproxen 500 mg tablet 04-24 00:00: 00 No 1mg Dose Unknown 04-24 00:00: 00 No famotidine 40 mg tablet 04-24 00:00: 00 Yes 1mg Chace Zapien naproxen 500 mg tablet 04-24 00:00: 00 Yes 1mg Chace Zapien Dose Unknown 04-24 00:00: 00 Yes Chace Zapien metformin ER 500 mg tablet,exte nded release [...] nded release 24 hr 04-23 00:00: 00 Yes 1mg Chace Zapien Vitamin D2 1,250 mcg (50,000 unit) capsule 04-23 00:00: 00 Yes 1(50,00 0 unit) Chace Zapien montelukast 10 mg tablet 04-19 00:00: 00 [...] No 1mg Dose Unknown 04-19 00:00: 00 Yes Chace Zapien ipratropium 0.5 mg-albutero l 3 mg (2.5 mg base)/3 mL nebulizatio n soln 04-19 00:00: 00 Yes 1mg base)/3 mL Chace Zapien famotidine 40 mg tablet 04-19 00:00: 00 Yes 1mg Chace Zapien loratadine 10 mg tablet 04-19 00:00: 00 Yes 1mg Chace Zapien losartan 100 mg tablet 04-19 00:00: 00 Yes 1mg Chace Zapien amlodipine 10 mg tablet 04-19 00:00: 00 Yes 1mg Chace Zapien montelukast 10 mg tablet 04-19 00:00: 00 Yes 1mg Chace Zapien naproxen 500 mg tablet 04-19 00:00: 00 Yes 1mg Chace Zapien ondansetron HCl 8 mg tablet 04-19 00:00: 00 Yes 1mg Chace Zapien alendronate 70 mg tablet 04-19 00:00: 00 Yes 1mg Chace Zapien omeprazole 40 mg capsule,del ayed release 04-19 00:00: 00 Yes 1mg Chace Zapien hydrochloro thiazide 12.5 mg capsule 04-19 00:00: 00 Yes 1mg Chace Zapien Linzess 145 mcg capsule 04-19 00:00: 00 Yes 1mcg Chace Zapien Vital Signs Vital Name Observation Time Observation Value Comments S ource Systolic blood pressure 2025-01-02 16:55:00 132 mm[Hg] Marissa casas - External Diastolic blood pressure 2025-01-02 16:55:00 80 mm[Hg] Marissa casas - External Heart rate 2025-01-02 16:55:00 90 /min Kelse y Seybold - External Body temperature 2025-01-02 16:55:00 36.22 Judy Marissa Seybold - External Respiratory rate 2025-01-02 16:55:00 15 /min Marissa Seybold - External Body height 2025-01-02 16:55:00 167.6 cm Sarah ey Seybold - External Body weight 2025-01-02 16:55:00 113.399 kg Sarah ey Seybold - External BMI 2025-01-02 16:55:00 40.35 kg/m2 Sarah ey Seybold - External Oxygen saturation in Arterial blood by Pulse oximetry 2025-01-02 16:55:00 98 /min Marissa Seybo ld - External Systolic blood pressure 2024-12-02 20:51:00 152 mm[Hg] Marissa Seybo ld - External Diastolic blood pressure 2024-12-02 20:51:00 78 mm[Hg] Marissa Seybo ld - External Heart rate 2024-12-02 20:51:00 89 /min Kelse y Seybold - External Body temperature 2024-12-02 20:51:00 36.61 Judy Marissa Seybold - External Respiratory rate 2024-12-02 20:51:00 15 /min Marissa Seybold - External Body height 2024-12-02 20:51:00 167.6 cm Sarah ey Seybold - External Body weight 2024-12-02 20:51:00 117.482 kg Sarah ey Seybold - External BMI 2024-12-02 20:51:00 41.80 kg/m2 Sarah ey Seybold - External Oxygen saturation in Arterial blood by Pulse oximetry 2024-12-02 20:51:00 97 /min Marissa Seybo ld - External Systolic blood pressure 2024-02-07 18:07:00 118 mm[Hg] Marissa Seybo ld - External Diastolic blood pressure 2024-02-07 18:07:00 78 mm[Hg] Marissa Seybo ld - External Heart rate 2024-02-07 18:07:00 72 /min Tyronese y Seybold - External Body temperature 2024-02-07 18:07:00 36.94 [...] Systolic blood pressure 2023-12-14 19:15:00 124 mm[Hg] Mairssa Seybo ld - External Diastolic blood pressure [...] blood pressure 2023-11-16 20:56:00 126 mm[Hg] Marissa Seybo ld - External Diastolic blood pressure 2023-11-16 [...] External BMI 2023-11-16 20:56:00 41.80 kg/m2 Sarah ey Seybold - External Systolic blood pressure 2023-11-08 20:21:00 148 mm[Hg] Marissa Olmoso ld - External Diastolic blood pressure 2023-11-08 20:21:00 86 mm[Hg] Marissa Olmoso ld - External Heart rate 2023-11-08 20:21:00 78 /min Parris paredes Seybold - External Body temperature 2023-11-08 20:21:00 36.56 Judy Marissa Kaurybold - External Respiratory rate 2023-11-08 20:21:00 20 /min Marissa Kaurybold - External Body height 2023-11-08 20:21:00 167.6 cm Sarah gorman Seybold - External Body weight 2023-11-08 20:21:00 120.203 kg Sarah gorman Seybold - External BMI 2023-11-08 20:21:00 42.77 kg/m2 Sarah gorman Seybmat - External Oxygen saturation in Arterial blood by Pulse oximetry 2023-11-08 20:21:00 99 /min Marissa Ritchie ld - External BP Systolic 2024-07-30 07:32:00 140 mm[Hg] Step hen F Curry BP Diastolic 2024-07-30 07:32:00 94 mm[Hg] Sanket phen F Curry Weight Measured 2024-07-30 07:32:00 246.00 pounds Chace F Curry Height Measured 2024-07-30 07:32:00 66.00 inches Chace F Curry Body Temperature 2024-07-30 07:32:00 98.20 degrees Chace F Curry Heart Rate 2024-07-30 07:32:00 79.00 /min Maribel en F Curry Respiratory Rate 2024-07-30 07:32:00 18.00 /min Chace F Curry BP Systolic 2024-07-15 14:35:00 142 mm[Hg] Step hen F Curry BP Diastolic 2024-07-15 14:35:00 78 mm[Hg] Sanket phen F Curry Weight Measured 2024-07-15 14:35:00 251.00 pounds Chace F Curry Height Measured 2024-07-15 14:35:00 66.00 inches Chace F Curry Body Temperature 2024-07-15 14:35:00 98.00 degrees Chace F Curry Heart Rate 2024-07-15 14:35:00 86.00 /min Maribel en F Curry Respiratory Rate 2024-07-15 14:35:00 18.00 /min Chace F Curry Height Measured 2024-07-08 18:43:00 Chace F Curry Body Temperature 2024-07-08 18:43:00 Chace F Curry Heart Rate 2024-07-08 18:43:00 Maribel en F Curry Respiratory Rate 2024-07-08 18:43:00 Chace F Curry BP Systolic 2024-07-08 18:43:00 Step hen F Curry BP Diastolic 2024-07-08 18:43:00 Sanket phen F Curry Weight Measured 2024-07-08 18:43:00 Chace F Curry BP Systolic 2024-07-08 17:32:00 165 mm[Hg] Step hen F Curry BP Diastolic 2024-07-08 17:32:00 97 mm[Hg] Sanket phen F Curry Weight Measured 2024-07-08 17:32:00 284.00 pounds Chace F Curry Height Measured 2024-07-08 17:32:00 66.00 inches Chace F Curry Body Temperature 2024-07-08 17:32:00 98.20 degrees Chace F Curry Heart Rate 2024-07-08 17:32:00 85.00 /min Maribel en F Curry Respiratory Rate 2024-07-08 17:32:00 19.00 /min Chace F Curry BP Systolic 2023-05-15 08:29:00 128 mm[Hg] Step hen F Curry BP Diastolic 2023-05-15 08:29:00 86 mm[Hg] Sanket phen F Curry Weight Measured 2023-05-15 08:29:00 264.00 pounds Chace F Curry Height Measured 2023-05-15 08:29:00 66.00 inches Chace F Curry Body Temperature 2023-05-15 08:29:00 98.10 degrees Chace F Curry Heart Rate 2023-05-15 08:29:00 85.00 /min Maribel en F Curry Respiratory Rate 2023-05-15 08:29:00 19.00 /min Chace F Curry BP Systolic 2022-07-14 15:21:00 116 mm[Hg] Step hen F Curry BP Diastolic 2022-07-14 15:21:00 76 mm[Hg] Sanket phen F Curry Weight Measured 2022-07-14 15:21:00 269.00 pounds Chace F Curry Height Measured 2022-07-14 15:21:00 66.00 inches Chace F Curry Body Temperature 2022-07-14 15:21:00 98.50 degrees Chace F Curry Heart Rate 2022-07-14 15:21:00 96.00 /min Maribel en F Curry Respiratory Rate 2022-07-14 15:21:00 18.00 /min Chace F Curry BP Systolic 2022-06-21 10:55:00 142 mm[Hg] Step hen F Curry BP Diastolic 2022-06-21 10:55:00 92 mm[Hg] Sanket phen F Curry Weight Measured 2022-06-21 10:55:00 266.20 pounds Chace F Curry Height Measured 2022-06-21 10:55:00 66.00 inches Chace F Curry Body Temperature 2022-06-21 10:55:00 98.30 degrees Chace F Curry Heart Rate 2022-06-21 10:55:00 84.00 /min Maribel en F Curry Respiratory Rate 2022-06-21 10:55:00 18.00 /min Chace F Curry BP Systolic 2022-06-02 15:11:00 Step hen F Curry BP Diastolic 2022-06-02 15:11:00 Sanket phen F Curry Weight Measured 2022-06-02 15:11:00 Chace F Curry Height Measured 2022-06-02 15:11:00 Chace F Curry Body Temperature 2022-06-02 15:11:00 Chace F Curry Heart Rate 2022-06-02 15:11:00 Maribel en F Curry Respiratory Rate 2022-06-02 15:11:00 Chace F Curry BP Systolic 2022-06-02 14:12:00 149 mm[Hg] Step hen F Curry BP Diastolic 2022-06-02 14:12:00 85 mm[Hg] Sanket phen F Curry Weight Measured 2022-06-02 14:12:00 271.60 pounds Chace F Curry Height Measured 2022-06-02 14:12:00 66.00 inches Chace F Curry Body Temperature 2022-06-02 14:12:00 98.10 degrees Chace F Curry Heart Rate 2022-06-02 14:12:00 84.00 /min Maribel en F Curry Respiratory Rate 2022-06-02 14:12:00 18.00 /min Chace F Curry BP Systolic 2022-04-19 10:57:00 167 mm[Hg] Step hen F Curry BP Diastolic 2022-04-19 10:57:00 108 mm[Hg] Sanket phen F Curry Weight Measured 2022-04-19 10:57:00 271.40 pounds Chace F Curry Height Measured 2022-04-19 10:57:00 66.00 inches Chace F Curry Body Temperature 2022-04-19 10:57:00 98.30 degrees Chace F Curry Heart Rate 2022-04-19 10:57:00 87.00 /min Maribel en F Curry Respiratory Rate 2022-04-19 10:57:00 17.00 /min Chace Zapien Plan of Care Planned Activity Planned Date Details Comments Source Goal Plan of Care Note [code = 99772-4] Goal Plan of Care Note [code = 36496-5] Goal Plan of Care Note [code = 13112-2] Goal Plan of Care Note [code = 40587-3] Goal Plan of Care Note [code = 46786-5] Goal Plan of Care Note [code = 18879-6] Goal Plan of Care Note [code = 32319-0] Goal Plan of Care Note [code = 23960-4] Goal Plan of Care Note [code = 11529-7] Goal Plan of Care Note [code = 97507-1] Goal Plan of Care Note [code = 79859-3] Goal Plan of Care Note [code = 73158-8] Goal Plan of Care Note [code = 74374-9] Goal Plan of Care Note [code = 53056-9] Goal Plan of Care Note [code = 28827-2] Goal Plan of Care Note [code = 16635-2] Goal Plan of Care Note [code = 22979-0] Goal Plan of Care Note [code = 86808-5] Goal Plan of Care Note [code = 73415-8] Goal Plan of Care Note [code = 27510-0] Goal Plan of Care Note [code = 29435-0] Goal Plan of Care Note [code = 60625-2] Goal Plan of Care Note [code = 61281-9] Goal Plan of Care Note [code = 61788-3] Encounters Start Date/Time End Date/Time Encounter Type Admission Type Attending [facility] Care Department Encounter ID Source 2025-02-04 09:00:00 2025-02-04 09:00:00 Outpatient ALVIN OSBORN MARISSA JENNINGS [id number] [facility] 2025-01-28 08:30:00 2025-01-28 08:30:00 Outpatient JULIA MARTINEZ [id number] [facility] 2025-01-14 00:00:00 2025-01-14 00:00:00 Outpatient NOEMI SCHOFIELD [id number] [facility] 2025-01-14 00:00:00 2025-01-14 00:00:00 Outpatient CIERRA, [facility] MARISSA JENNINGS [id number] [facility] 2025-01-12 11:00:00 2025-01-12 11:00:00 Outpatient MARISSA JENNINGS [id number] [facility] 2025-01-02 11:00:00 2025-01-02 11:00:00 Outpatient JULIA MARTINEZ [id number] [facility] 2024-12-12 00:00:00 2024-12-12 00:00:00 Outpatient NOEMI SCHOFIELD [id number] [facility] 2024-12-09 00:00:00 2024-12-09 00:00:00 Outpatient JULIA MARTINEZ [id number] [facility] 2024-12-05 08:25:00 2024-12-05 08:25:00 Outpatient LAB90 MARISSA JENNINGS [id number] [facility] 2024-12-02 15:00:00 2024-12-02 15:00:00 Outpatient JULIA MARTINEZ [id number] [facility] 2024-12-02 00:00:00 2024-12-02 00:00:00 Outpatient MARISSA JENNINGS [id number] [facility] 2024-08-15 00:00:00 2024-08-15 00:00:00 Outpatient JULIA MARTINEZ [id number] [facility] 2024-08-11 13:32:05 2024-08-11 13:32:05 Outpatient SFA SFA [id number] Chace Zapien 2024-08-11 00:00:00 2024-08-11 00:00:00 Outpatient Visit SFA [id number] Chace Zapien 2024-08-05 08:02:31 2024-08-05 08:02:31 Outpatient SFA SFA [id number] Chace Zapien 2024-07-30 07:31:17 2024-07-30 07:31:17 Outpatient SFA SFA [id number] Chace Zapien 2024-07-30 00:00:00 2024-07-30 00:00:00 Outpatient Visit SFA [id number] Chace Zapien 2024-07-15 14:32:12 2024-07-15 14:32:12 Outpatient SFA SFA [id number] Chace Zapien 2024-07-15 00:00:00 2024-07-15 00:00:00 Outpatient Visit SFA [id number] Chace Zapien 2024-07-08 18:42:53 2024-07-08 18:42:53 Outpatient SFA SFA [id number] Chace Zapien 2024-07-08 00:00:00 2024-07-08 00:00:00 Outpatient Visit SFA [id number] Chace Zapien 2024-07-08 00:00:00 2024-07-08 00:00:00 Outpatient Visit SFA [id number] Chace Zapien 2024-06-06 00:00:00 2024-06-06 00:00:00 Outpatient NOEMI SCHOFIELD MARISSA JENNINGS [id number] [facility] 2024-05-07 15:45:00 2024-05-07 15:45:00 Outpatient JOSE VENEGAS MARISSA JENNINGS [id number] [facility] 2024-03-12 09:30:00 2024-03-12 09:30:00 Outpatient MARI LEVI MARISSA JENNINGS [id number] [facility] 2024-03-04 09:20:00 2024-03-04 09:20:00 Outpatient LAB90 MARISSA JENNINGS [id number] [facility] 2024-02-27 00:00:00 2024-02-27 00:00:00 Outpatient JULIA MARTINEZ [id number] [facility] 2024-02-19 14:20:00 2024-02-19 14:20:00 Outpatient CLAUS PA MARISSA JENNINGS [id number] [facility] 2024-02-19 13:20:00 2024-02-19 13:20:00 Outpatient CAMILLE BENAVIDES [id number] [facility] 2024-02-14 13:20:00 2024-02-14 13:20:00 Outpatient MAKAYLA CAMILLE MARISSA JENNINGS [id number] [facility] 2024-02-09 00:00:00 2024-02-09 00:00:00 Outpatient JULIA MARTINEZ [id number] [facility] 2024-02-07 13:00:00 2024-02-07 13:00:00 Outpatient JULIA MARTINEZ [id number] [facility] 2024-01-09 00:00:00 2024-01-09 00:00:00 Outpatient SHARON HERNANDEZ [id number] [facility] 2024-01-07 09:00:00 2024-01-07 09:00:00 Outpatient JUILA MARTINEZ [id number] [facility] 2023-12-19 00:00:00 2023-12-19 00:00:00 Outpatient JULIA MARTINEZ MARISSA [id number] [facility] 2023-12-14 13:30:00 2023-12-14 13:30:00 Outpatient JULIA MARTINEZ MARISSA [id number] [facility] 2023-12-10 14:30:00 2023-12-10 14:30:00 Outpatient SLOANCHACE GOODMAN MARISSA JENNINGS [id number] [facility] 2023-12-10 08:30:00 2023-12-10 08:30:00 Outpatient MEAGHANNOEMI Weldon MARISSA JENNINGS [id number] [facility] 2023-12-10 00:00:00 2023-12-10 00:00:00 Outpatient SHARON HERNANDEZ [id number] [facility] 2023-12-06 13:10:00 2023-12-06 13:10:00 Outpatient CHACE LISA MARISSA JENNINGS [id number] [facility] 2023-11-21 00:00:00 2023-11-21 00:00:00 Outpatient JULIA MARTINEZ MARISSA MARISSA [id number] [facility] 2023-11-16 15:50:00 2023-11-16 15:50:00 Outpatient CARO EJNNINGS MARISSA [id number] [facility] 2023-11-16 15:00:00 2023-11-16 15:00:00 Outpatient JULIA MARTINEZ MARISSA MARISSA [id number] [facility] 2023-11-08 14:30:00 2023-11-08 14:30:00 Outpatient SHARON HERNANDEZ [id number] [facility] 2023-05-28 08:16:05 2023-05-28 08:16:05 Outpatient SFA SFA [id number] Chace Johnston Curry 2023-05-15 08:20:47 2023-05-15 08:20:47 Outpatient SFA SFA [id number] Chace Johnston Curry 2022-07-21 00:00:00 2022-07-21 00:00:00 Outpatient Visit [id number] 2022-07-14 00:00:00 2022-07-14 00:00:00 Outpatient Visit [id number] 2020-08-03 06:00:00 2020-08-03 10:00:00 Outpatient LAURA SOLANO SE FRANK [id number] 2020-07-20 08:57:00 2020-07-20 23:59:00 Outpatient LAURA SOLANO SE FRANK [address] [facility] Results Test Description Test Time Test Comments Results Result Co mments Source VITAMIN D, 25 [id number] 00:00:00* Test Item Value Reference Range Interpretation Comme [facility] VITAMIN D, 25 OH (test code = 4958) 23 NG/ML Chace F AustinVITAMIN D, 25 [id number] 00:00:00* Test Item Value Reference Range Interpretation Comme [facility] VITAMIN D, 25 OH (test code = 4958) 23 NG/ML Chace F AustinVITAMIN D, 25 [id number] 00:00:00* Test Item Value Reference Range Interpretation Comme nts VITAMIN D, 25 OH (test code = 4958) 23 NG/ML Chace F AustinVITAMIN D, 25 [id number] 00:00:00* Test Item Value Reference Range Interpretation Comme nts VITAMIN D, 25 OH (test code = 4958) 23 NG/ML Chace F AustinVITAMIN D, 25 [id number] 00:00:00* Test Item Value Reference Range Interpretation Comme nts VITAMIN D, 25 OH (test code = 4958) 23 NG/ML Chace F AustinVITAMIN D, 25 [id number] 00:00:00* Test Item Value Reference Range Interpretation Comme nts VITAMIN D, 25 OH (test code = 4958) 23 NG/ML LIPID [id number] 03:15:18* Test Item Value Reference Range Interpretation [...] SPECIMENS. FOR MOREINFORMATION, SEE CLIENT ANNOUNCEMENT AT [email or web address] RISK RATIO LDL/HDL (test code = 2238) 2.96 RATIO <3.22 COMPREHENSIVE METABOLIC [id number] 03:15:18* Test Item Value Reference Range Interpretation Comme nts GLUCOSE (test code = 2217) 87 MG/DL 70-99 BUN (test code = 2207) 20 MG/DL 6-20 CREATININE (test code = 2214) 1.31 MG/DL 0.60-1.30 H eGFR (2020 CKD-EPI) (test code = 56009) 48 ML/MIN/1.73 >60 L CALC BUN/CREAT (test code = 2235) 15 RATIO 6-28 SODIUM (test code = 223) 141 MEQ/L 133-146 POTASSIUM (test code = 2228) 4.4 MEQ/L 3.5-5.4 CHLORIDE (test code = 2215) 103 MEQ/L 95-107 CARBON DIOXIDE (test code = 2206) 22 MEQ/L 19-31 CALCIUM (test code = 2209) 9.6 MG/DL 8.5-10.5 PROTEIN, TOTAL (test code = 222) 8.0 G/DL 6.1-8.3 ALBUMIN (test code = 2201) 4.4 G/DL 3.5-5.2 CALC GLOBULIN (test code = 2240) 3.6 G/DL 1.9-3.7 CALC A/G RATIO (test code = 2234) 1.2 RATIO 1.0-2.6 BILIRUBIN, TOTAL (test code = 220) 0.2 MG/DL See_Comment [Automated me ssage] The system which generated this result transmitted reference range: <=1.2. The reference range was not used to interpret this result as normal/abnormal. ALKALINE PHOSPHATASE (test code = 2204) 108 U/L 40-133 AST (test code = 2218) 21 U/L 9-40 ALT (test code = 2219) 29 U/L 5-40 TSH, THIRD [id number] 01:13:31* Test Item Value Reference Range Interpretation Comme nts TSH, THIRD GENERATION (test code = 2821) 0.491 UIU/ML 0.400-4.100 UNLESS OTHERWISE INDICATED, ALL TESTING PERFORMED [facility] [employer] [address] [place] [address] ASSISTANT WOMENS VOLLEYBALL COACH: MANISH ZUNIGA M.D. CLIA NUMBER [id number] [facility] [place]. [id number] LIPID [id number] 00:00:00* Test Item Value Reference Range Interpretation Comme nts CHOLESTEROL (test code = 2210) 237 MG/DL TRIGLYCERIDES (test code = 2232) 178 MG/DL HDL CHOLESTEROL (test code = 2220) 52 MG/DL CALC LDL CHOL (test code = 2237) 154 MG/DL RISK RATIO LDL/HDL (test cod e = 2238) 2.96 RATIO Chcae F CurryCOMPREHENSIVE METABOLIC [id number] 00:00:00* Test Item Value Reference Range Interpretation Comme nts GLUCOSE (test code = 2217) 87 MG/DL BUN (test code = 2208) 20 MG/DL CREATININE (test code = 2214) 1.31 MG/DL eGFR (2020 CKD-EPI) (test co de = 54130) 48 ML/MIN/1.73 CALC BUN/CREAT (test code = [...] ALT (test code = 2219) 29 U/L Chace Malhotra THIRD [id number] 00:00:00* Test Item Value Reference Range Interpretation Comme nts TSH, THIRD GENERATION (test code = 2821) 0.491 UIU/ML Chace ZapienLIPID [id number] 00:00:00* Test Item Value Reference Range Interpretation Comme nts CHOLESTEROL (test code = 2210) 237 MG/DL TRIGLYCERIDES (test code = 2232) 178 MG/DL HDL CHOLESTEROL (test code = 2220) 52 MG/DL CALC LDL CHOL (test code = 2237) 154 MG/DL RISK RATIO LDL/HDL (test cod e = 2238) 2.96 RATIO Chace ZapienCOMPREHENSIVE METABOLIC [id number] 00:00:00* Test Item Value Reference Range Interpretation Comme nts GLUCOSE (test code = 2217) 87 MG/DL BUN (test code = 2208) 20 MG/DL CREATININE (test code = 2214) 1.31 MG/DL eGFR (2020 CKD-EPI) (test co de = 81158) 48 ML/MIN/1.73 CALC BUN/CREAT (test code = [...] ALT (test code = 2219) 29 U/L Chace Malhotra, THIRD [id number] 00:00:00* Test Item Value Reference Range Interpretation Comme nts TSH, THIRD GENERATION (test code = 2821) 0.491 UIU/ML Chace ZapienLIPID [id number] 00:00:00* Test Item Value Reference Range Interpretation Comme nts CHOLESTEROL (test code = 2210) 237 MG/DL TRIGLYCERIDES (test code = 2232) 178 MG/DL HDL CHOLESTEROL (test code = 2220) 52 MG/DL CALC LDL CHOL (test code = 2237) 154 MG/DL RISK RATIO LDL/HDL (test cod e = 2238) 2.96 RATIO Chace ZapienCOMPREHENSIVE METABOLIC [id number] 00:00:00* Test Item Value Reference Range Interpretation Comme nts GLUCOSE (test code = 2217) 87 MG/DL BUN (test code = 2208) 20 MG/DL CREATININE (test code = 2214) 1.31 MG/DL eGFR (2020 CKD-EPI) (test co de = 55160) 48 ML/MIN/1.73 CALC BUN/CREAT (test code = [...] ALT (test code = 2219) 29 U/L Chace IvyH, THIRD [id number] 00:00:00* Test Item Value Reference Range Interpretation Comme nts TSH, THIRD GENERATION (test code = 2821) 0.491 UIU/ML Chace ZapienLIPID [id number] 00:00:00* Test Item Value Reference Range Interpretation Comme nts CHOLESTEROL (test code = 2210) 237 MG/DL TRIGLYCERIDES (test code = 2232) 178 MG/DL HDL CHOLESTEROL (test code = 2220) 52 MG/DL CALC LDL CHOL (test code = 2237) 154 MG/DL RISK RATIO LDL/HDL (test cod e = 2238) 2.96 RATIO Chace ZapienCOMPREHENSIVE METABOLIC [id number] 00:00:00* Test Item Value Reference Range Interpretation Comme nts GLUCOSE (test code = 2217) 87 MG/DL BUN (test code = 2208) 20 MG/DL CREATININE (test code = 2214) 1.31 MG/DL eGFR (2020 CKD-EPI) (test co de = 06949) 48 ML/MIN/1.73 CALC BUN/CREAT (test code = [...] ALT (test code = 2219) 29 U/L Chace ZapienTSH, THIRD [id number] 00:00:00* Test Item Value Reference Range Interpretation Comme nts TSH, THIRD GENERATION (test code = 2821) 0.491 UIU/ML Chace ZapienLIPID [id number] 00:00:00* Test Item Value Reference Range Interpretation Comme nts CHOLESTEROL (test code = 2210) 237 MG/DL TRIGLYCERIDES (test code = 2232) 178 MG/DL HDL CHOLESTEROL (test code = 2220) 52 MG/DL CALC LDL CHOL (test code = 2237) 154 MG/DL RISK RATIO LDL/HDL (test cod e = 2238) 2.96 RATIO Chace ZapienCOMPREHENSIVE METABOLIC [id number] 00:00:00* Test Item Value Reference Range Interpretation Comme nts GLUCOSE (test code = 2217) 87 MG/DL BUN (test code = 2208) 20 MG/DL CREATININE (test code = 2214) 1.31 MG/DL eGFR (2020 CKD-EPI) (test co de = 17220) 48 ML/MIN/1.73 CALC BUN/CREAT (test code = [...] ALT (test code = 2219) 29 U/L Chace ZapienTSH, THIRD [id number] 00:00:00* Test Item Value Reference Range Interpretation Comme nts TSH, THIRD GENERATION (test code = 2821) 0.491 UIU/ML Chace Johnston AustinLIPID [id number] 00:00:00* Test Item Value Reference Range Interpretation Comme nts CHOLESTEROL (test code = 2210) 237 MG/DL TRIGLYCERIDES (test code = 2232) 178 MG/DL HDL CHOLESTEROL (test code = 2220) 52 MG/DL CALC LDL CHOL (test code = 2237) 154 MG/DL RISK RATIO LDL/HDL (test cod e = 2238) 2.96 RATIO COMPREHENSIVE METABOLIC [id number] 00:00:00* Test Item Value Reference Range Interpretation Comme nts GLUCOSE (test code = 2217) 87 MG/DL BUN (test code = 2208) 20 MG/DL CREATININE (test code = 2214) 1.31 MG/DL eGFR (2020 CKD-EPI) (test co de = 92959) 48 ML/MIN/1.73 CALC BUN/CREAT (test code = [...] 1.2 RATIO BILIRUBIN, TOTAL (test code = 7) 0.2 MG/DL ALKALINE PHOSPHATASE (test code = 2203) 108 U/L AST (test code = 2217) 21 U/L ALT (test code = 2219) 29 U/L TSH, THIRD [id number] 00:00:00* Test Item Value Reference Range Interpretation Comme [facility] TSH, THIRD GENERATION (test code = 2821) 0.491 UIU/ML HEMOGLOBIN [id number] 04:27:25* Test Item Value Reference Range Interpretation Comme nts HEMOGLOBIN A1c (test code = 81366) 6.5 % 4.2-5.6 H [employer] GUIDELINES FOR HGB A1C: [...] OR LABORATORY CONSULTATION. CBC W/AUTO DIFF WITH [id number] 03:58:08* Test Item Value Reference Range Interpretation [...] = 1065) 0.0 /100 WBC'S See_Comment [Automated messa ge] The system which generated this result [...] 0.00-0.10 ABS NUCLEATED RBCS (test code = 92498) 0.02 K/UL 0.00-0.11 HEMOGLOBIN [id number] 00:00:00* Test Item Value Reference Range Interpretation Comme nts HEMOGLOBIN A1c (test code = 93689) 6.5 % [facility] [id number] 00:00:00* Test Item Value Reference Range Interpretation [...] ABS NUCLEATED RBCS (test cod e = 45907) 0.02 K/UL Chace ZapienHEMOGLOBIN [id number] 00:00:00* Test Item Value Reference Range Interpretation Comme nts HEMOGLOBIN A1c (test code = 23277) 6.5 % Chace ZapienCBC W/AUTO [id number] 00:00:00* Test Item Value Reference Range Interpretation [...] ABS NUCLEATED RBCS (test cod e = 98438) 0.02 K/UL Chace ZapienHEMOGLOBIN [id number] 00:00:00* Test Item Value Reference Range Interpretation Comme nts HEMOGLOBIN A1c (test code = 92673) 6.5 % Chace ZapienCBC W/AUTO [id number] 00:00:00* Test Item Value Reference Range Interpretation [...] ABS NUCLEATED RBCS (test cod e = 20571) 0.02 K/UL Chace Johnston AustinHEMOGLOBIN [id number] 00:00:00* Test Item Value Reference Range Interpretation Comme nts HEMOGLOBIN A1c (test code = 80556) 6.5 % Chace Johnston AustinCBC W/AUTO [id number] 00:00:00* Test Item Value Reference Range Interpretation [...] ABS NUCLEATED RBCS (test cod e = 14778) 0.02 K/UL Chace Johnston AustinHEMOGLOBIN [id number] 00:00:00* Test Item Value Reference Range Interpretation Comme nts HEMOGLOBIN A1c (test code = 64545) 6.5 % Chace Johnston AustinCBC W/AUTO [id number] 00:00:00* Test Item Value Reference Range Interpretation [...] ABS NUCLEATED RBCS (test cod e = 56699) 0.02 K/UL Chace Johnston AustinHEMOGLOBIN [id number] 00:00:00* Test Item Value Reference Range Interpretation Comme nts HEMOGLOBIN A1c (test code = 14062) 6.5 % CBC W/AUTO [id number] 00:00:00* Test Item Value Reference Range Interpretation [...] ABS NUCLEATED RBCS (test cod e = 03948) 0.02 K/UL H. PYLORI (BREATH)2022-06-22 13:31:28* Test Item Value Reference Range Interpretation Comme nts H. PYLORI (BREATH) (test code = 46462) NEGATIVE NEGATIVE UNLESS OTHER GARCIA INDICATED, ALL TESTING PERFORMED [facility] [address] [place] [address] [employer] COACH: MANISH ZUNIGA M.D. CLIA NUMBER [id number] [facility] [place]. [id number] H. PYLORI (BREATH) [ADDED]2022-06-22 00:00:00* Test Item Value Reference Range Interpretation Comme nts H. PYLORI (BREATH) (test cod e = 30004) NEGATIVE Chace F AustinH. PYLORI (BREATH) [ADDED]2022-06-22 00:00:00* Test Item Value Reference Range Interpretation Comme nts H. PYLORI (BREATH) (test cod e = 14458) NEGATIVE Chace F AustinH. PYLORI (BREATH) [ADDED]2022-06-22 00:00:00* Test Item Value Reference Range Interpretation Comme nts H. PYLORI (BREATH) (test cod e = 51994) NEGATIVE Chace F AustinH. PYLORI (BREATH) [ADDED]2022-06-22 00:00:00* Test Item Value Reference Range Interpretation Comme nts H. PYLORI (BREATH) (test cod e = 34937) NEGATIVE Chace Johnston AustinH. PYLORI (BREATH) [ADDED]2022-06-22 00:00:00* Test Item Value Reference Range Interpretation Comme nts H. PYLORI (BREATH) (test cod e = 79493) NEGATIVE Chace Johnston AustinH. PYLORI (BREATH) [ADDED]2022-06-22 00:00:00* Test Item Value Reference Range Interpretation Comme nts H. PYLORI (BREATH) (test cod e = 09584) NEGATIVE H. PYLORI (BREATH) [ADDED]2022-06-22 00:00:00* Test Item Value Reference Range Interpretation Comme nts H. PYLORI (BREATH) (test cod e = 10176) NEGATIVE COMPREHENSIVE METABOLIC [id number] 05:16:24* Test Item Value Reference Range Interpretation Comme nts GLUCOSE (test code = 2217) 90 MG/DL 70-99 BUN (test code = 8) 15 MG/DL 6-20 CREATININE (test code = 2214) 1.13 MG/DL 0.60-1.30 eGFR (2020 CKD-EPI) (test code = 04489) 57 ML/MIN/1.73 >60 L CALC BUN/CREAT (test code = 2235) 13 RATIO 6-28 SODIUM (test code = 2231) 143 MEQ/L 133-146 POTASSIUM (test code = 2228) 4.4 MEQ/L 3.5-5.4 CHLORIDE (test code = 2215) 106 MEQ/L 95-107 CARBON DIOXIDE (test code = 2206) 26 MEQ/L 19-31 CALCIUM (test code = 2209) 10.3 MG/DL 8.5-10.5 PROTEIN, TOTAL (test code = 2229) 7.8 G/DL 6.1-8.3 ALBUMIN (test code = 2201) 4.6 G/DL 3.5-5.2 CALC GLOBULIN (test code = 2240) 3.2 G/DL 1.9-3.7 CALC A/G RATIO (test code = 2234) 1.4 RATIO 1.0-2.6 BILIRUBIN, TOTAL (test code = 2207) <0.2 MG/DL See_Comment [Automated me ssage] The system which generated this result transmitted reference range: <=1.2. The reference range was not used to interpret this result as normal/abnormal. ALKALINE PHOSPHATASE (test code = 2204) 105 U/L 40-133 AST (test code = 2218) 21 U/L 9-40 ALT (test code = 2219) 31 U/L 5-40 UNLESS OTHERWISE INDICATED, ALL TESTING PERFORMED [facility] [employer] [address] [place] [id number] ASSISTANT WOMENS VOLLEYBALL COACH: MANISH ZUNIGA M.D. [place] NUMBER [id number] [facility] [place]. [id number] COMPREHENSIVE METABOLIC [id number] 00:00:00* Test Item Value Reference Range Interpretation Comme nts GLUCOSE (test code = 2217) 90 MG/DL BUN (test code = 2208) 15 MG/DL CREATININE (test code = 2214) 1.13 MG/DL eGFR (2020 CKD-EPI) (test co de = 64092) 57 ML/MIN/1.73 CALC BUN/CREAT (test code = [...] ALT (test code = 2219) 31 U/L Chace ZapienCOMPREHENSIVE METABOLIC [id number] 00:00:00* Test Item Value Reference Range Interpretation Comme nts GLUCOSE (test code = 2217) 90 MG/DL BUN (test code = 2208) 15 MG/DL CREATININE (test code = 2214) 1.13 MG/DL eGFR (2020 CKD-EPI) (test co de = 41869) 57 ML/MIN/1.73 CALC BUN/CREAT (test code = [...] ALT (test code = 2219) 31 U/L [facility] [id number] 00:00:00* Test Item Value Reference Range Interpretation Comme nts GLUCOSE (test code = 2217) 90 MG/DL BUN (test code = 2208) 15 MG/DL CREATININE (test code = 2214) 1.13 MG/DL eGFR (2020 CKD-EPI) (test co de = 62252) 57 ML/MIN/1.73 CALC BUN/CREAT (test code = [...] ALT (test code = 2219) 31 U/L Chace Johnston [facility] [id number] 00:00:00* Test Item Value Reference Range Interpretation Comme nts GLUCOSE (test code = 2217) 90 MG/DL BUN (test code = 2208) 15 MG/DL CREATININE (test code = 2214) 1.13 MG/DL eGFR (2020 CKD-EPI) (test co de = 63618) 57 ML/MIN/1.73 CALC BUN/CREAT (test code = [...] ALT (test code = 2219) 31 U/L Chace ZapienCOMPREHENSIVE METABOLIC [id number] 00:00:00* Test Item Value Reference Range Interpretation Comme nts GLUCOSE (test code = 2217) 90 MG/DL BUN (test code = 2208) 15 MG/DL CREATININE (test code = 2214) 1.13 MG/DL eGFR (2020 CKD-EPI) (test co de = 01278) 57 ML/MIN/1.73 CALC BUN/CREAT (test code = [...] ALT (test code = 2219) 31 U/L Chace ZapienCOMPREHENSIVE METABOLIC [id number] 00:00:00* Test Item Value Reference Range Interpretation Comme nts GLUCOSE (test code = 2217) 90 MG/DL BUN (test code = 2208) 15 MG/DL CREATININE (test code = 2214) 1.13 MG/DL eGFR (2020 CKD-EPI) (test co de = 12269) 57 ML/MIN/1.73 CALC BUN/CREAT (test code = [...] code = 2219) 31 U/L COMPREHENSIVE METABOLIC [id number] 00:00:00* Test Item Value Reference Range Interpretation Comme nts GLUCOSE (test code = 2217) 90 MG/DL BUN (test code = 2208) 15 MG/DL CREATININE (test code = 2214) 1.13 MG/DL eGFR (2020 CKD-EPI) (test co de = 76794) 57 ML/MIN/1.73 CALC BUN/CREAT (test code = [...] code = 2219) 31 U/L TSH, THIRD [id number] 06:26:56* Test Item Value Reference Range Interpretation Comme [facility] TSH, THIRD GENERATION (test code = 2821) 0.894 UIU/ML 0.400-4.100 UNLESS OTHERWISE INDICATED, ALL TESTING PERFORMED ATCLIN[facility] PATHOLOG[facility] [employer] [address] [place] [address] ASSISTANT WOMENS VOLLEYBALL COACH: MANISH ZUNIGA M.D. [place] NUMBER [id number] [facility] [place]. [id number] VITAMIN D, 25 [id number] 05:55:42* Test Item Value Reference Range Interpretation Comme [facility] VITAMIN D, 25 OH (test code [...] . . . . NG/ML 30-100 HEMOGLOBIN [id number] 04:11:26* Test Item Value Reference Range Interpretation Comme [facility] HEMOGLOBIN A1c (test code = 43732) 6.8 % 4.2-5.6 H [employer] GUIDELINES FOR HGB A1C: [...] ALTERNATE TESTING OR LABORATORY CONSULTATION. COMPREHENSIVE METABOLIC [id number] 03:24:51* Test Item Value Reference Range Interpretation Comme nts GLUCOSE (test code = 7) 110 MG/DL 70-99 H BUN (test code = 2207) 11 MG/DL 6-20 CREATININE (test code = 221) 1.01 MG/DL 0.60-1.30 eGFR (2020 CKD-EPI) (test code = 21157) 66 ML/MIN/1.73 >60 CALC BUN/CREAT (test code = 2235) 11 RATIO 6-28 SODIUM (test code = 223) 144 MEQ/L 133-146 POTASSIUM (test code = 2228) 4.2 MEQ/L 3.5-5.4 CHLORIDE (test code = 2214) 108 MEQ/L 95-107 H CARBON DIOXIDE (test code = 2205) 24 MEQ/L 19-31 CALCIUM (test code = 2209) 9.6 MG/DL 8.5-10.5 PROTEIN, TOTAL (test code = 222) 7.6 G/DL 6.1-8.3 ALBUMIN (test code = 2201) 4.3 G/DL 3.5-5.2 CALC GLOBULIN (test code = 2240) 3.3 G/DL 1.9-3.7 CALC A/G RATIO (test code = 223) 1.3 RATIO 1.0-2.6 BILIRUBIN, TOTAL (test code = 220) 0.3 MG/DL See_Comment [Automated me ssage] The system which generated this result transmitted reference range: <=1.2. The reference range was not used to interpret this result as normal/abnormal. ALKALINE PHOSPHATASE (test code = 4) 100 U/L 40-133 AST (test code = 2218) 17 U/L 9-40 ALT (test code = 2219) 22 U/L 5-40 LIPID [id number] 03:24:51* Test Item Value Reference Range Interpretation Comme nts CHOLESTEROL (test code = 2210) 197 MG/DL <200 TRIGLYCERIDES (test code = 2232) 128 MG/DL <150 HDL CHOLESTEROL (test code = 2220) 43 MG/DL >39 CALC LDL CHOL (test code = 2237) 130 MG/DL <100 H NOTE: CALCULATED LDL IS BASED ON MING-ARMSTRONG METHOD WHICHINCLUDES ADJUSTABLE TRIGLYCERIDE:VLDL CHOLESTEROL RATIO.THIS FACTOR VARIES BY MEASURED TRIGLYCERIDE AND NON-HDLCHOLESTEROL CONCENTRATIONS WITH INCREASED CALCULATED LDL SEENIN HIGHER TRIGLYCERIDE OR LOWER NON-HDL SPECIMENS. FOR MOREINFORMATION, SEE CLIENT ANNOUNCEMENT AT [email or web address] RISK RATIO LDL/HDL (test code = 2238) 3.02 RATIO <3.22 CBC W/AUTO DIFF WITH [id number] 02:34:04* Test Item Value Reference Range Interpretation [...] = 1065) 0.0 /100 WBC'S See_Comment [Automated Egullya [employer]] The system which generated this result transmitted [...] 0.00-0.10 ABS NUCLEATED RBCS (test code = 02832) 0.00 K/UL 0.00-0.11 VITAMIN D, 25 [id number] 00:00:00* Test Item Value Reference Range Interpretation Comme nts VITAMIN D, 25 OH (test code = 4958) 15 NG/ML [id number] 00:00:00* Test Item Value Reference Range Interpretation Comme nts TSH, THIRD GENERATION (test code = 2821) 0.894 UIU/ML COMPREHENSIVE METABOLIC [id number] 00:00:00* Test Item Value Reference Range Interpretation Comme nts GLUCOSE (test code = 2217) 110 MG/DL BUN (test code = 2208) 11 MG/DL CREATININE (test code = 2214) 1.01 MG/DL eGFR (2020 CKD-EPI) (test co de = 74752) 66 ML/MIN/1.73 CALC BUN/CREAT (test code = [...] ALT (test code = 2219) 22 U/L [facility]O [id number] 00:00:00* Test Item Value Reference Range Interpretation [...] ABS NUCLEATED RBCS (test cod e = 57560) 0.00 K/UL Chace ZapienLIPID [id number] 00:00:00* Test Item Value Reference Range Interpretation Comme nts CHOLESTEROL (test code = 2210) 197 MG/DL TRIGLYCERIDES (test code = 2232) 128 MG/DL HDL CHOLESTEROL (test code = 2220) 43 MG/DL CALC LDL CHOL (test code = 2237) 130 MG/DL RISK RATIO LDL/HDL (test cod e = 2238) 3.02 RATIO Chace Johnston CurryHEMOGLOBIN [id number] 00:00:00* Test Item Value Reference Range Interpretation Comme nts HEMOGLOBIN A1c (test code = 86618) 6.8 % Chace Vickie CurryVITAMIN D, 25 [id number] 00:00:00* Test Item Value Reference Range Interpretation Comme nts VITAMIN D, 25 OH (test code = 4958) 15 NG/ML Chace [id number] 00:00:00* Test Item Value Reference Range Interpretation Comme nts TSH, THIRD GENERATION (test code = 2821) 0.894 UIU/ML Chace ZapienCOMPREHENSIVE METABOLIC [id number] 00:00:00* Test Item Value Reference Range Interpretation Comme nts GLUCOSE (test code = 2217) 110 MG/DL BUN (test code = 2208) 11 MG/DL CREATININE (test code = 2214) 1.01 MG/DL eGFR (2020 CKD-EPI) (test co de = 09041) 66 ML/MIN/1.73 CALC BUN/CREAT (test code = [...] ALT (test code = 2219) 22 U/L Chace ZapienCBC W/AUTO [id number] 00:00:00* Test Item Value Reference Range Interpretation [...] ABS NUCLEATED RBCS (test cod e = 38622) 0.00 K/UL Chace ZapienLIPID [id number] 00:00:00* Test Item Value Reference Range Interpretation Comme nts CHOLESTEROL (test code = 2210) 197 MG/DL TRIGLYCERIDES (test code = 2232) 128 MG/DL HDL CHOLESTEROL (test code = 2220) 43 MG/DL CALC LDL CHOL (test code = 2237) 130 MG/DL RISK RATIO LDL/HDL (test cod e = 2238) 3.02 RATIO Chace ZapienHEMOGLOBIN [id number] 00:00:00* Test Item Value Reference Range Interpretation Comme [facility] HEMOGLOBIN A1c (test code = 69499) 6.8 % Chace ZapienVITAMIN D, 25 [id number] 00:00:00* Test Item Value Reference Range Interpretation Comme [facility] VITAMIN D, 25 OH (test code = 4958) 15 NG/ML Chace [id number] 00:00:00* Test Item Value Reference Range Interpretation Comme [facility] TSH, THIRD GENERATION (test code = 2821) 0.894 UIU/ML Chace ZapienCOMPREHENSIVE METABOLIC [id number] 00:00:00* Test Item Value Reference Range Interpretation Comme nts GLUCOSE (test code = 2217) 110 MG/DL BUN (test code = 2208) 11 MG/DL CREATININE (test code = 2214) 1.01 MG/DL eGFR (2020 CKD-EPI) (test co de = 65856) 66 ML/MIN/1.73 CALC BUN/CREAT (test code = [...] ALT (test code = 2219) 22 U/L Chace Johnston [facility] W/AUTO [id number] 00:00:00* Test Item Value Reference Range Interpretation [...] ABS NUCLEATED RBCS (test cod e = 85284) 0.00 K/UL Chace ZapienLIPID [id number] 00:00:00* Test Item Value Reference Range Interpretation Comme nts CHOLESTEROL (test code = 2210) 197 MG/DL TRIGLYCERIDES (test code = 2232) 128 MG/DL HDL CHOLESTEROL (test code = 2220) 43 MG/DL CALC LDL CHOL (test code = 2237) 130 MG/DL RISK RATIO LDL/HDL (test cod e = 2238) 3.02 RATIO Chace ZapienHEMOGLOBIN [id number] 00:00:00* Test Item Value Reference Range Interpretation Comme [facility] HEMOGLOBIN A1c (test code = 71293) 6.8 % Chace ZapienVITAMIN D, 25 [id number] 00:00:00* Test Item Value Reference Range Interpretation Comme [facility] VITAMIN D, 25 OH (test code = 4958) 15 NG/ML Chace [id number] 00:00:00* Test Item Value Reference Range Interpretation Comme [facility] TSH, THIRD GENERATION (test code = 2821) 0.894 UIU/ML Chace ZapienCOMPREHENSIVE METABOLIC [id number] 00:00:00* Test Item Value Reference Range Interpretation Comme nts GLUCOSE (test code = 2217) 110 MG/DL BUN (test code = 2208) 11 MG/DL CREATININE (test code = 2214) 1.01 MG/DL eGFR (2020 CKD-EPI) (test co de = 21317) 66 ML/MIN/1.73 CALC BUN/CREAT (test code = [...] ALT (test code = 2219) 22 U/L Chace ZapienCBC W/AUTO [id number] 00:00:00* Test Item Value Reference Range Interpretation [...] ABS NUCLEATED RBCS (test cod e = 19005) 0.00 K/UL Chace ZapienLIPID [id number] 00:00:00* Test Item Value Reference Range Interpretation Comme nts CHOLESTEROL (test code = 2210) 197 MG/DL TRIGLYCERIDES (test code = 2232) 128 MG/DL HDL CHOLESTEROL (test code = 2220) 43 MG/DL CALC LDL CHOL (test code = 2237) 130 MG/DL RISK RATIO LDL/HDL (test cod e = 2238) 3.02 RATIO Chace ZapienHEMOGLOBIN [id number] 00:00:00* Test Item Value Reference Range Interpretation Comme [facility] HEMOGLOBIN A1c (test code = 12429) 6.8 % Chace ZapienVITAMIN D, 25 [id number] 00:00:00* Test Item Value Reference Range Interpretation Comme nts VITAMIN D, 25 OH (test code = 4958) 15 NG/ML Chace [id number] 00:00:00* Test Item Value Reference Range Interpretation Comme nts TSH, THIRD GENERATION (test code = 2821) 0.894 UIU/ML Chace ZapienCOMPREHENSIVE METABOLIC [id number] 00:00:00* Test Item Value Reference Range Interpretation Comme nts GLUCOSE (test code = 2217) 110 MG/DL BUN (test code = 2208) 11 MG/DL CREATININE (test code = 2214) 1.01 MG/DL eGFR (2020 CKD-EPI) (test co de = 64844) 66 ML/MIN/1.73 CALC BUN/CREAT (test code = [...] ALT (test code = 2219) 22 U/L Chace ZapienCBC W/AUTO [id number] 00:00:00* Test Item Value Reference Range Interpretation [...] ABS NUCLEATED RBCS (test cod e = 10886) 0.00 K/UL Chace Johnston CurryLIPID [id number] 00:00:00* Test Item Value Reference Range Interpretation Comme nts CHOLESTEROL (test code = 2210) 197 MG/DL TRIGLYCERIDES (test code = 2232) 128 MG/DL HDL CHOLESTEROL (test code = 2220) 43 MG/DL CALC LDL CHOL (test code = 2237) 130 MG/DL RISK RATIO LDL/HDL (test cod e = 2238) 3.02 RATIO Chace ZapienHEMOGLOBIN [id number] 00:00:00* Test Item Value Reference Range Interpretation Comme [facility] HEMOGLOBIN A1c (test code = 06236) 6.8 % Chace Johnston CurryVITAMIN D, 25 [id number] 00:00:00* Test Item Value Reference Range Interpretation Comme [facility] VITAMIN D, 25 OH (test code = 4958) 15 NG/ML Chace [id number] 00:00:00* Test Item Value Reference Range Interpretation Comme nts TSH, THIRD GENERATION (test code = 2821) 0.894 UIU/ML Chace ZapienCOMPREHENSIVE METABOLIC [id number] 00:00:00* Test Item Value Reference Range Interpretation Comme nts GLUCOSE (test code = 2217) 110 MG/DL BUN (test code = 2208) 11 MG/DL CREATININE (test code = 2214) 1.01 MG/DL eGFR (2020 CKD-EPI) (test co de = 40967) 66 ML/MIN/1.73 CALC BUN/CREAT (test code = [...] code = 2219) 22 U/L CBC W/AUTO [id number] 00:00:00* Test Item Value Reference Range Interpretation [...] ABS NUCLEATED RBCS (test cod e = 46533) 0.00 K/UL LIPID [id number] 00:00:00* Test Item Value Reference Range Interpretation Comme nts CHOLESTEROL (test code = 2210) 197 MG/DL TRIGLYCERIDES (test code = 2232) 128 MG/DL HDL CHOLESTEROL (test code = 2220) 43 MG/DL CALC LDL CHOL (test code = 2237) 130 MG/DL RISK RATIO LDL/HDL (test cod e = 2238) 3.02 RATIO HEMOGLOBIN [id number] 00:00:00* Test Item Value Reference Range Interpretation Comme nts HEMOGLOBIN A1c (test code = 08445) 6.8 % VITAMIN D, 25 [id number] 00:00:00* Test Item Value Reference Range Interpretation Comme nts VITAMIN D, 25 OH (test code = 4958) 15 NG/ML [id number] 00:00:00* Test Item Value Reference Range Interpretation Comme nts TSH, THIRD GENERATION (test code = 2821) 0.894 UIU/ML COMPREHENSIVE METABOLIC [id number] 00:00:00* Test Item Value Reference Range Interpretation Comme nts GLUCOSE (test code = 2217) 110 MG/DL BUN (test code = 2208) 11 MG/DL CREATININE (test code = 2214) 1.01 MG/DL eGFR (2020 CKD-EPI) (test co de = 99226) 66 ML/MIN/1.73 CALC BUN/CREAT (test code = [...] code = 2219) 22 U/L CBC W/AUTO [id number] 00:00:00* Test Item Value Reference Range Interpretation [...] ABS NUCLEATED RBCS (test cod e = 99107) 0.00 K/UL LIPID [id number] 00:00:00* Test Item Value Reference Range Interpretation Comme nts CHOLESTEROL (test code = 2210) 197 MG/DL TRIGLYCERIDES (test code = 2232) 128 MG/DL HDL CHOLESTEROL (test code = 2220) 43 MG/DL CALC LDL CHOL (test code = 2237) 130 MG/DL RISK RATIO LDL/HDL (test cod e = 2238) 3.02 RATIO HEMOGLOBIN [id number] 00:00:00* Test Item Value Reference Range Interpretation Comme nts HEMOGLOBIN A1c (test code = 10562) 6.8 % Notes Date/Time Note Provider Source 2025-01-02 11:01:44 Chief Complaint Patient presents with Follow-up Follow up on anxiety, patient states that she is doing better. Follow up on Mounjaro. Penelope Ashley MA [facility] 2024-12-02 14:57:12 Chief Complaint Patient presents with Physical Patient is not fasting. No other issues to discuss REFILLS-NURSE/MD Penelope Ashley MA [facility]2024-09-11 00:00:00 [facility]2024-08-27 00:00:00 [facility]2024-08-20 00:00:00 [facility]2024-08-20 00:00:00 [facility]2024-03-21 13:12:23 Chief Complaint Patient presents with Follow-up Four week follow up for Diabetes Fabiola Mejía LVN [facility]2024-02-19 09:12:00 Chief Complaint Patient presents with REFILLS-NURSE/MD Refill [facility] Diabetes Diabetic follow up Penelope Ashley MA II [facility] Kaiden [id number] 13:18:47 Chief Complaint Patient presents with Diabetes Diabetic follow up Dry Skin Dry skin on the bottom of both feet. Left one seems worse. Penelope Ashley MA II [facility] Kaiden [id number] 08:34:26 Chief Complaint Patient presents with Cough Dry cough for 1 month. 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 Concepcion [place] CMA I [place] [id number] 15:04:07 Chief Complaint Patient presents with Physical Patient is fasting. Tongue Pain under tongue for about a week. She is diabetic and is concerned. She states that her mouth is really dry when she wakes up Penelope Ashley MA II [facility]
[2025-01-14] MEDS ORDERED: HYDROCODONE/APAP 10/325 TAB ONE (18:24)
--- NOTE | 2025-01-14 19:02 | RAD REPORT ---
EXAMINATION: TWO VIEW CHEST XR CLINICAL INDICATION: BLUNT CHEST TRAUMA TECHNIQUE: 2 views of the chest was performed. COMPARISON: 03/21/2024 FINDINGS: Chronically elevated left hemidiaphragm again noted. There is atelectasis in the left lung base. The lungs are otherwise clear. The heart is upper limit of normal in size. No displaced fractures evident.
--- NOTE | 2025-01-14 19:03 | RAD REPORT ---
EXAMINATION: XR LEFT KNEE CLINICAL INDICATION: PAIN TECHNIQUE: Multiple projections of the left knee were obtained. COMPARISON: No prior exam. FINDINGS: Mild medial compartment space narrowing. Otherwise, no fracture, dislocation or joint effu ellie.
--- NOTE | 2025-01-14 19:04 | RAD REPORT ---
EXAMINATION: XR RIGHT FOOT CLINICAL INDICATION: Female, 59 years old. PAIN TECHNIQUE: Multiple views of the right foot were obtained. COMPARISON: No prior exam. FINDINGS: Lucency seen involving the base of the distal phalanx of the great toe could represent nond isplaced fracture. Elsewhere, no bone or joint abnormality. Large plantar calcaneal spur.
--- NOTE | 2025-01-14 19:36 | EDPHYS ---
Physician Documentation [facility] Name: Pushpa Hays Age: 59 yrs Sex: Female : 1965 Arrival Date: 01/14/2025 Time: 17:12 Bed DX1 Private MD: ED Physician Kevin Wolf HPI: 01/14 22:49 This 59 yrs old Black Female presents to ER via Wheelchair with complaints of Fall kb Injury, Rib injury. 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 Denies hitting head, loc. . Historical: - Allergies: 17:32 No Known Allergies; db - PMHx: 17:32 GERD; Hypercholesterolemia; Hypertension; ibs; osteoarthritis; db - PSHx: 17:32 Cholecystectomy; hysterectomy; Gastric Bypass; tubal ligation; Tummy tuck; db - Immunization history:: Adult Immunizations unknown. - Infectious Disease History:: Denies. - Social history:: Smoking status: Patient denies any tobacco usage or history of. ROS: 22:48 Constitutional: As per HPI kb Exam: 22:48 Constitutional: This is a well developed, well nourished patient who is awake, alert, kb and in no acute distress. Head/Face: Normocephalic, atraumatic. ENT: Moist Mucous membranes Cardiovascular: Regular rate Respiratory: Respirations even and unlabored. No increased work of breathing. Talking in full sentences Abdomen/GI: Soft, non-tender. No distention Skin: Warm, dry with normal turgor. Normal color. Neuro: Awake and alert, GCS 15, oriented to person, place, time, and situation. 22:48 Chest/axilla: Inspection: normal, Palpation: tenderness, that is moderate, of the right breast, that totally reproduces the patient's complaints, 22:48 Musculoskeletal/extremity: Extremities: grossly normal except: noted in the left knee: abrasion, pain, tenderness, noted in the right first toe: pain, tenderness, ROM: intact in all extremities, Circulation is intact in all extremities. Sensation intact. Weight bearing: able to fully bear weight, Vital Signs: 17:29 BP 188 / 99; Pulse 80; Resp 16; Temp 98.9; Pulse Ox 100% on R/A; Weight 108.86 kg; db Height 5 ft. 6 in. ; 20:00 BP 178 / 88; Pulse 82; Resp 16; Pulse Ox 100% ; vc1 17:29 Body Mass Index 38.74 (108.86 kg, 167.64 cm) db MDM: 17:24 Medical Screening Exam initiated kb 22:49 Differential diagnosis: contusion, fracture, sprain, strain. Data reviewed: vital kb signs, nurses notes. Counseling: I had a detailed discussion with the patient and/or guardian regarding the historical points, exam findings, and any diagnostic results supporting the discharge/admit diagnosis, radiology results, the need for outpatient follow up, a orthopedic surgeon, to return to the emergency department if symptoms worsen or persist or if there are any questions or concerns that arise at home. 01/14 17:33 Order name: Knee Left 3 View XRAY; Complete Time: 19:05 kb 01/14 17:33 Order name: Foot Right 3 View XRAY; Complete Time: 19:05 kb 01/14 17:33 Order name: Chest Pa And Lat (2 Views) XRAY; Complete Time: 19:05 kb Administered Medications: 18:26 Drug: [place] PO 10 mg-325 mg 1 tabs PO once Route: PO; db Disposition Summary: 01/14/25 19:36 Discharge Ordered Notes: Location: Home kb Condition: Stable kb Diagnosis - Contusion of left knee kb - Chest pain, unspecified - right chest wall pain kb - nondisplaced fracture distal phalax right great toe kb Followup: kb - With: Emergency Department - When: As needed - Reason: Worsening of condition Followup: kb - With: Private Physician - When: 2 - 3 days - Reason: Recheck today's complaints, Continuance of care, Re-evaluation by your physician Discharge Instructions: - Discharge Summary Sheet kb - Musculoskeletal Pain kb - Toe Fracture, Gpiw-bo-Jdtm kb - Chest Wall Pain, [id number]-kk-Bqdp kb Forms: - Work release form kb - Medication Reconciliation Form kb - Antibiotic Education kb - Prescription Opioid Use kb - Patient Portal Instructions kb - Leadership Thank You Letter kb Prescriptions: - Diclofenac Sodium 75 mg Oral tablet, delayed release (enteric coated) - take 1 tablet ORAL route 2 times per day As needed; 30 tablet; Refills: 0, kb Product Selection Permitted Addendum: 01/18/2025 09:23 Co-signature as Attending Physician, Kevin Wolf MD I reviewed the patient's care r t provided by the Advanced Practice Provider and agree with the diagnosis and treatment plan. Signatures: Dispatcher [employer] EDBarbara Bravo, RATE CLERK PASSENGER-C RATE CLERK PASSENGER-Su Mccormick, RN RN db Kevin Wolf MD MD rt Corrections: (The following items were deleted from the chart) 01/14 17:33 17:33 Knee Left 3 View+RAD.RAD.BRZ ordered. EDMS EDMS 17:33 17:33 Foot Right 3 View+RAD.RAD.BRZ ordered. EDMS EDMS 17:33 17:33 Chest Pa And Lat (2 Views)+RAD.RAD.BRZ ordered. EDMS EDMS
--- NOTE | 2025-01-14 19:36 | ER ---
Nurse's Notes [facility] Nancy Name: Pushpa Hays Age: 59 yrs Sex: Female : 1965 Arrival Date: 01/14/2025 Time: 17:12 Bed DX1 Private MD: Diagnosis: Contusion of left knee;Chest pain, unspecified-right chest wall pain;nondisplaced fracture distal phalax right great toe Presentation: 01/14 17:29 Chief complaint: Patient states: TRIPPED AND FELL AT [facility] TODAY [employer]. HURT LEFT db KNEE AND RIGHT RIB, RIGHT BIG TOE. Coronavirus screen: Client denies travel out of the [place] in the last 14 days. At this time, the client does not indicate any symptoms associated with coronavirus-19. Ebola Screen: Patient negative for fever greater than or equal to 101.5 degrees Fahrenheit, and additional compatible Ebola Virus Disease symptoms Patient denies exposure to infectious person. Patient denies travel to an Ebola-affected area in the 21 days before illness onset. No symptoms or risks identified at this time. Initial Sepsis Screen: Does the patient meet any 2 criteria? No. Patient's initial sepsis screen is negative. Does the patient have a suspected source of infection? No. Patient's initial sepsis screen is negative. Risk Assessment: Do you want to hurt yourself or someone else? Patient reports no desire to harm self or others. Onset of symptoms was January 14, 2025. 17:29 Method Of Arrival: Wheelchair db 17:29 Acuity: KARINA 3 db Triage Assessment: 17:32 General: Appears in no apparent distress. uncomfortable, Behavior is calm, cooperative. db Pain: Complains of pain in right foot and left leg. Neuro: Level of Consciousness is awake, alert, obeys commands, Oriented to person, place, time, situation. Historical: - Allergies: 17:32 No Known Allergies; db - PMHx: 17:32 GERD; Hypercholesterolemia; Hypertension; ibs; osteoarthritis; db - PSHx: 17:32 Cholecystectomy; hysterectomy; Gastric Bypass; tubal ligation; Tummy tuck; db - Immunization history:: Adult Immunizations unknown. - Infectious Disease History:: Denies. - Social history:: Smoking status: Patient denies any tobacco usage or history of. Screenin:00 [facility] ED Fall Risk Assessment (Adult) History of falling in the last 3 months, vc1 including since admission Yes- single mechanical fall (1 pt) Confusion or Disorientation No (0 pts) Intoxicated or Sedated No (0 pts) Impaired Gait No (0 pts) Mobility Assist Device Used No (0 pt) Altered Elimination No (0 pt) Score/Fall Risk Level 0 - 2 = Low Risk Oriented to surroundings, Maintained a safe environment, Educated pt \T\ family on fall prevention, incl call for assistance when getting out of bed, Assessed \T\ reinforced patient's understanding of fall precautions. Abuse screen: Denies threats or abuse. Nutritional screening: No deficits noted. Tuberculosis screening: No symptoms or risk factors identified. Assessment: 20:28 Reassessment: No changes from previously documented assessment. Patient and/or family vc1 updated on plan of care and expected duration. Pain level reassessed. Patient is alert, oriented x 3, equal unlabored respirations, skin warm/dry/pink. General:. Vital Signs: 17:29 BP 188 / 99; Pulse 80; Resp 16; Temp 98.9; Pulse Ox 100% on R/A; Weight 108.86 kg; db Height 5 ft. 6 in. ; 20:00 BP 178 / 88; Pulse 82; Resp 16; Pulse Ox 100% ; vc1 17:29 Body Mass Index 38.74 (108.86 kg, 167.64 cm) db ED Course: 17:14 Patient arrived in ED. mr 17:23 Barbara Hernandes, [facility]udi [facility] kb 17:23 Kevin Wolf MD is Attending Physician. kb 17:32 Triage completed. db 17:32 Arm band placed on Patient placed in an exam room. db 18:57 Knee Left 3 View XRAY In Process Unspecified. EDMS 18:57 Foot Right 3 View XRAY In Process Unspecified. EDMS 18:57 Chest Pa And Lat (2 Views) XRAY In Process Unspecified. EDMS 19:36 Kevin Wolf MD is Referral Physician. kb 20:15 No provider procedures requiring assistance completed. Patient did not have IV access vc1 during this emergency room visit. 20:28 Patient has correct armband on for positive identification. sat in wheelchair. vc1 20:28 Provided Education on: no NSAIDs with medication. vc1 Administered Medications: 18:26 Drug: [place] PO 10 mg-325 mg 1 tabs PO once Route: PO; db Medication: 20:28 VIS not applicable for this client. vc1 Outcome: 19:36 Discharge ordered by . mily 20:28 Patient left the ED. darrinf 20:28 Discharged to home via wheelchair, with family, vc1 20:28 Condition: stable 20:28 Discharge instructions given to patient, Instructed on discharge instructions, follow up and referral plans. medication usage, Demonstrated understanding of instructions, follow-up care, medications, Prescriptions given X 1, Signatures: Dispatcher [employer] EDMS Barbara Hernandes, MANAGER LINUX-C MANAGER LINUX-Ckb Patti Burton, Reg Reg mr Rita Hernandez RN RN vc1 Su Kapoor, HAY RN db Marissa Zambrano [facility]
[2025-01-14 20:51] VITALS: BP 188/99; TEMP 98.9; O2SAT 100
== END 2025-01-14 20:28 | disposition home or self-care (01) ==
LOC: ER 17:12
DX: S92.424A Nondisplaced fracture of distal phalanx of right great toe, initial encounter for closed fracture (principal); S80.02XA Contusion of left knee, initial encounter; R07.89 Other chest pain; W01.0XXA Fall on same level from slipping, tripping and stumbling without subsequent striking against object, initial encounter; Y92.512 Supermarket, store or market as the place of occurrence of the external cause
CPT/HCPCS: 71046; 99283